=== PATIENT | male | born 1950 | race African-American/Black ===

== ENCOUNTER 2020-03-15 18:14 | Observation (INO) | payer OTHER ==
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
--- NOTE | 2020-03-15 18:56 | ER ---
Nurse's Notes [facility] Name: Robert Nina Jr Age: 69 yrs Sex: Male : 1950 Arrival Date: 03/15/2020 Time: 18:16 Bed 6 Private MD: Diagnosis: End stage renal disease-on hd;Obesity, unspecified;Dyspnea-volume overload;Anemia, unspecified;Unspecified combined systolic (congestive) and diastolic (congestive) heart failure;Type 1 diabetes mellitus;Essential (primary) hypertension;Hypoglycemia, unspecified Presentation: 03/15 18:16 Chief complaint: EMS states: PT [facility] AND IS DUE FOR DIALYSIS TODAY ls4 AND NOTHING WAS SET UP YET. Coronavirus screen: Client denies travel out of the [place] in the last 14 days. At this time, the client does not indicate any symptoms associated with coronavirus-19. Ebola Screen: No symptoms or risks identified at this time. Initial Sepsis Screen: Does the patient meet any 2 criteria? No. Patient's initial sepsis screen is negative. Does the patient have a suspected source of infection? No. Patient's initial sepsis screen is negative. Risk Assessment: Do you want to hurt yourself or someone else? Patient reports no desire to harm self or others. Onset of symptoms is unknown. 18:16 Method Of Arrival: EMS: [facility] ls4 18:16 Acuity: KEVEN 3 ls4 Triage Assessment: 18:26 General: Appears uncomfortable, obese, unkempt, Behavior is cooperative, quiet. Pain: ls4 Denies pain. Neuro: Level of Consciousness is awake, alert, obeys commands, Oriented to person, place, time, situation. Respiratory: Airway is patent Respiratory effort is even, unlabored, Respiratory pattern is regular. GI: No deficits noted. No signs and/or symptoms were reported involving the gastrointestinal system. Historical: - Allergies: 18:26 No Known Allergies; ls4 - PMHx: 18:26 CVA; ESRD; GERD; Diabetes - IDDM; RIGHT HEMIPLEGIA; ls4 - Immunization history:: Adult Immunizations up to date. - Social history:: Smoking status: unknown The patient lives in a correction. Screenin:20 Abuse screen: Denies threats or abuse. Denies injuries from another. Nutritional ls4 screening: No deficits noted. Tuberculosis screening: No symptoms or risk factors identified. Fall Risk. Assessment: 19:17 General: see triage assessment. ls4 20:00 Reassessment: Patient and/or family updated on plan of care and expected duration. Pain mt2 level reassessed. Patient is alert, oriented x 3, equal unlabored respirations, skin warm/dry/pink. Patient denies pain at this time. General: Appears comfortable, Behavior is cooperative. Pain: Denies pain. 21:07 Reassessment: Patient and/or family updated on plan of care and expected duration. Pain mt2 level reassessed. Patient is alert, oriented x 3, equal unlabored respirations, skin warm/dry/pink. Patient denies pain at this time. General: Appears comfortable, Behavior is cooperative. Pain: Denies pain. Vital Signs: 18:16 BP 157 / 104; Pulse 104; Resp 20; Temp 97.9(O); Pulse Ox 98% on R/A; Weight 108.86 kg; ls4 Height 5 ft. 7 in. (170.18 cm); Pain 3/10; 20:00 BP 179 / 100; Pulse 69; Resp 16; Pulse Ox 93% ; Pain 0/10; mt2 21:07 BP 158 / 86; Pulse 96; Resp 96; Pulse Ox 98% ; Pain 0/10; mt2 18:16 Body Mass Index 37.59 (108.86 kg, 170.18 cm) ls4 ED Course: 18:16 Patient arrived in ED. ls4 18:21 Triage completed. ls4 18:31 Stanley Jenkins MD is Attending Physician. darcie 18:48 Arm band placed on right wrist. ls4 18:55 Vikas Tran MD is Hospitalizing Provider. darcie 19:15 Inserted saline lock: 18 gauge in left EJ, using aseptic technique. mt2 19:22 XRAY Chest (1 view) In Process Unspecified. EDMS 19:27 Jessica Manuel, MICHAEL is Primary Nurse. ls4 21:06 Patient has correct armband on for positive identification. Placed in gown. Bed in low mt2 position. Call light in reach. Side rails up X 1. 21:08 No provider procedures requiring assistance completed. Patient admitted, IV remains in mt2 place. Administered Medications: Discontinued: NS 0.9% 1000 ml IV at 30 ml/hr continuous 19:28 Drug: NS 0.9% 1000 ml Route: IV; Rate: 30 ml/hr; Site: right antecubital; ls4 21:22 Follow up: IV Status: Completed infusion mt2 20:28 Drug: Lasix 100 mg Route: IVP; Site: left jugular; mt2 21:04 Follow up: Response: No adverse reaction rv 21:21 Follow up: Response: No adverse reaction; Blood pressure is lowered mt2 20:28 Drug: D50W 25 ml Route: IVP; Site: left jugular; mt2 21:20 Follow up: Response: No adverse reaction; Other; BGL INCREASED TO 88 mt2 Outcome: 18:56 Decision to Hospitalize by Provider. darcie 21:20 Admitted to Med/surg accompanied by tech, room 202, Report called to Vu mt2 21:20 Condition: stable 21:20 Instructed on the need for admit. 21:31 Patient left the ED. mt2 Signatures: Dispatcher [employer] EDStanley Du MD MD cha Vicente, Ronaldo RN RN Jessica Martinez RN RN ls4 Yasmin Rodarte RN RN mt2
[2020-03-15 19:05] LABS: Absolute Lymphocytes (CBC) 1.1 K/uL (0.7-4.9); Basophils % 1.3 % (0-1.3); Hematocrit 29.4 % (39.6-49.0); Lymphocytes % 17.2 % (15.3-44.8); MPV 8.1 fL (7.6-11.3)
[2020-03-15 19:20] LABS: Protime INR 1.64
[2020-03-15] MEDS ORDERED: NA CHLORIDE 0.9% 500 ML ONE (19:32)
[2020-03-15 19:42] LABS: ALT/SGPT 13 U/L (12-78); AST/SGOT 10 U/L (15-37); Albumin 2.8 g/dL (3.4-5.0); Alkaline Phosphatase 129 U/L (45-117); BUN Blood Urea Nitrogen 64 mg/dL (7-18); Bicarbonate 30 mmol/L (21-32); Bilirubin Direct 0.2 mg/dL (0-0.2); Bilirubin Total 0.5 mg/dL (0.2-1.0); Glucose Level 69 mg/dL (74-106); Lipase 75 U/L (73-393); Magnesium 2.1 mg/dL (1.8-2.4); NT PRO-BNP 11054 pg/mL (<125); Potassium 4.7 mmol/L (3.5-5.1); Protein, Total 6.7 g/dL (6.4-8.2); Sodium Level 137 mmol/L (136-145); Troponin (Emerg Dept Use Only) < 0.02 ng/mL (0.0-0.045)
--- NOTE | 2020-03-15 19:42 | RAD REPORT ---
EXAM DESCRIPTION: RAD - Chest Single View - 03/15/2020 7:22 pm CLINICAL HISTORY: COUGH COMPARISON: None TECHNIQUE: AP portable chest image was obtained 03/15/2020 7:22 pm . FINDINGS: Lung volumes are low. Patient is significantly rotated. . Large body habitus also limits t he examination. Central vasculature is prominent. Interstitial markings are prominent. Mild cardiomeg chris is present, accentuated by the above detailed factors. Right-sided vascular access stents and gra fts present. Several surgical clips seen in the right upper chest. Small pleural effusions are seen. No pneumothorax. No acute bony abnormality seen. No acute aortic findings suspected. IMPRESSION: CHF/volume overload pattern moderate in degree
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
[2020-03-15] MEDS ORDERED: D50W 25 GM/50 ML SYRINGE/VIAL IV ONE (20:30)
[2020-03-15] MEDS ORDERED: FUROSEMIDE 100 MG/10 ML VIAL IV ONE (20:30)
[2020-03-15] MEDS ORDERED: NA CHLORIDE 0.9% 50 ML IV ONE (20:31)
[2020-03-15] MEDS: INSULIN -REGULAR HUMAN 50 UNIT/0.5 ML ML SQ SCH (21:00)
[2020-03-15] MEDS ORDERED: MANNITOL 25% 12.5 GM/50 ML VIAL IV PRN (21:32)
[2020-03-15] MEDS ORDERED: NA CHLORIDE 0.9% 1,000 ML IV PRN (21:32)
[2020-03-15] MEDS ORDERED: ALBUMIN HUMAN 25% 50 ML IV SCH (22:00)
[2020-03-15] MEDS ORDERED: HEPARIN 10,000 UNIT/10 ML VIAL IV PRN (22:07)
[2020-03-15] MEDS ORDERED: D50W 25 GM/50 ML SYRINGE/VIAL IV PRN (22:28)
[2020-03-15 23:53] VITALS: BMI 32.3
[2020-03-16] MEDS: HEPARIN 5000 UNIT/ML 1 ML VIAL SQ SCH ×2 (01:06→08:55)
[2020-03-16 05:45] LABS: Absolute Lymphocytes (CBC) 1.4 K/uL (0.7-4.9); Basophils % 1.4 % (0-1.3); Hematocrit 26.8 % (39.6-49.0); Lymphocytes % 26.9 % (15.3-44.8); MPV 7.9 fL (7.6-11.3); RBC Red Blood Cell Count 3.03 M/uL (4.33-5.43)
[2020-03-16 06:12] LABS: Magnesium 1.9 mg/dL (1.8-2.4)
[2020-03-16] MEDS: INSULIN -REGULAR HUMAN 50 UNIT/0.5 ML ML SQ SCH ×4 (07:30→21:00)
--- NOTE | 2020-03-16 07:33 | EKG ---
Test Date: 2020-03-15 Test Time: 19:22:44 Mill Washer: SEAN MEASUREMENT RESULTS: Intervals: Rate: 88 DC: QRSD: 100 QT: 368 QTc: 445 [place]: P: DC: QRS: -1 T: 73 INTERPRETIVE STATEMENTS: Atrial fibrillation Septal infarct, age undetermined Abnormal ECG No previous ECG available for comparison Electronically Signed On 03-16-20 07:32:28 CDT by Sudhakar Owusu
[2020-03-16] MEDS ORDERED: PNEUMOCOCCAL VACCINE 0.5 ML IMVAC ONE (08:00)
[2020-03-16] MEDS: CALCITROL 0.25 MCG CAP PO SCH (08:54)
[2020-03-16] MEDS: SEVELAMER CARBONATE 800 MG TABLET PO SCH ×3 (08:54→17:00)
[2020-03-16] MEDS: MULTIVITAMINS,THERAPEUT 1 TAB PO SCH (08:55)
[2020-03-16] MEDS ORDERED: EPOETIN ALFA 10,000 UNIT/ML VIAL SQ SCH (09:00)
[2020-03-16] MEDS: D5W 1,000 ML IV SCH ×2 (09:08→17:00)
[2020-03-16] MEDS: HYDRALAZINE HCL 20 MG/ML VIAL IV PRN (12:17)
[2020-03-16] MEDS ORDERED: LACTULOSE 20 GM/30 ML UCUP PO PRN (12:49)
[2020-03-16] MEDS: GABAPENTIN 400 MG CAP PO SCH ×2 (14:00→20:19)
--- NOTE | 2020-03-16 16:22 | P.PN ---
Subjective Date of Service: 03/16/20 Subjective: No new changes, No C/O voiced, Improving Review of Systems 10-point ROS is otherwise unremarkable Physical Examination - Vital Signs Temperature: 98.1 F Blood Pressure: 186/77 Pulse: 64 Respirations: 20 Pulse Ox (%): 96 - Physical Exam General: Alert, In no apparent distress, Oriented x3 Respiratory: Clear to auscultation bilaterally, Normal air movement Cardiovascular: Regular rate/rhythm, Normal S1 S2, Systolic murmur Gastrointestinal: Normal bowel sounds, Soft and benign, Non-distended, No tenderness Musculoskeletal: No clubbing, No tenderness, Swelling Neurological: Sensation intact, Cranial nerves 3-12 intact - Studies Laboratory Data (last 24 hrs) 03/15/20 18:52: PT 19.2 H, INR 1.64 03/15/20 18:52: WBC 6.3, Hgb 9.7 L, Hct 29.4 L, Plt Count 178 03/15/20 18:52: Sodium 137, Potassium 4.7, BUN 64 H, Creatinine 6.63 H*, Glucose 69 L, Magnesium 2.1, Total Bilirubin 0.5, AST 10 L, ALT 13, Alkaline Phosphatase 129 H, Lipase 75 Medications List Reviewed: Yes Assessment & Plan - Problems (Diagnosis) (1) ESRD (end stage renal disease) Current Visit: Yes Status: Acute (2) DM2 (diabetes mellitus, type 2) Current Visit: Yes Status: Acute (3) HTN (hypertension) Current Visit: Yes Status: Acute - Plan Plan: 1. Hemodialysis per Nephrology 2. Okay to DC once discharge planning completed Discharge Plan: Home Plan to discharge in: Greater than 2 days - Advance Directives Does patient have a Living Will: No Does patient have a Durable POA for Healthcare: Yes - Code Status/Comfort Care Code Status Assessed: Yes Code Status: Full Code Critical Care: No Time Spent Managing PTS Care (In Minutes): 30
[2020-03-16] MEDS: CA ACETATE 667 MG CAP PO SCH (17:00)
[2020-03-16] MEDS: METOPROLOL TAR 25 MG TAB PO SCH (17:59)
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
[2020-03-16] MEDS: PANTOPRAZOLE 40MG TABLET PO SCH (20:18)
[2020-03-16] MEDS: LOSARTAN POTASSIUM 50 MG TABLET PO SCH (20:18)
[2020-03-16] MEDS: AMLODIPINE 5 MG TAB PO SCH (20:19)
[2020-03-16] MEDS: DOCUSATE NA 100 MG CAP PO SCH (20:20)
[2020-03-16] MEDS ORDERED: HOME MED 1 EA UNK (Pravastatin Sodium [Pravastatin Sodium] 10 MG) PO SCH (21:00)
[2020-03-16] MEDS ORDERED: ATORVASTATIN 10 MG TAB PO SCH (21:00)
[2020-03-16] MEDS ORDERED: AMLODIPINE 5 MG TAB PO SCH (21:00)
[2020-03-17] MEDS: D5W 1,000 ML IV SCH ×3 (01:00→08:38)
[2020-03-17] MEDS: METOPROLOL TAR 25 MG TAB PO SCH (06:09)
[2020-03-17] MEDS ORDERED: LEVOTHYROXINE SOD 0.075 MG TAB PO SCH (06:30)
[2020-03-17] MEDS: INSULIN -REGULAR HUMAN 50 UNIT/0.5 ML ML SQ SCH ×2 (07:30→11:30)
[2020-03-17] MEDS: LOSARTAN POTASSIUM 50 MG TABLET PO SCH (08:31)
[2020-03-17] MEDS: CALCITROL 0.25 MCG CAP PO SCH (08:32)
[2020-03-17] MEDS: GABAPENTIN 400 MG CAP PO SCH ×2 (08:33→13:33)
[2020-03-17] MEDS: DOCUSATE NA 100 MG CAP PO SCH (08:33)
[2020-03-17] MEDS: PANTOPRAZOLE 40MG TABLET PO SCH (08:33)
[2020-03-17] MEDS: AMLODIPINE 5 MG TAB PO SCH (08:33)
[2020-03-17] MEDS: CA ACETATE 667 MG CAP PO SCH ×2 (08:34→10:59)
[2020-03-17] MEDS: SEVELAMER CARBONATE 800 MG TABLET PO SCH ×2 (08:37→10:59)
[2020-03-17] MEDS: MULTIVITAMINS,THERAPEUT 1 TAB PO SCH (08:37)
[2020-03-17] MEDS ORDERED: VITAMIN D 5,000 UNIT CAP PO SCH (09:00)
[2020-03-17] MEDS ORDERED: ASPIRIN 325 MG TAB PO SCH (09:00)
[2020-03-17] MEDS ORDERED: RIVAROXABAN 15 MG TABLET PO SCH (09:00)
[2020-03-17] MEDS ORDERED: carvediloL 12.5 MG TAB PO SCH (10:00)
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
[2020-03-17 12:17] VITALS: BP 186/77; TEMP 98.1
[2020-03-17 13:02] VITALS: O2SAT 97
[2020-03-17] MEDS: HYDRALAZINE HCL 20 MG/ML VIAL IV PRN (13:03)
[2020-03-17] MEDS ORDERED: ONDANSETRON 4 MG/2 ML VIAL IV ONE (15:00)
[2020-03-17] MEDS ORDERED: DOXAZOSIN 2 MG TAB PO SCH (21:00)
[2020-03-19 21:55] LABS: HBsAG Nonreactive (Nonreactive)
== END 2020-03-17 15:44 | disposition home or self-care (01) ==
LOC: ER 18:14 → ERHOLD 19:48 → 2ND 21:05
PROVIDERS: ADMIT Hospitalist; ATTEND Hospitalist
DX: I13.2 Hypertensive heart and chronic kidney disease with heart failure and with stage 5 chronic kidney disease, or end stage renal disease (principal); N18.6 End stage renal disease; E10.22 Type 1 diabetes mellitus with diabetic chronic kidney disease; E10.649 Type 1 diabetes mellitus with hypoglycemia without coma; D63.1 Anemia in chronic kidney disease; E46 Unspecified protein-calorie malnutrition; N25.81 Secondary hyperparathyroidism of renal origin; N25.0 Renal osteodystrophy; I50.33 Acute on chronic diastolic (congestive) heart failure; Z99.2 Dependence on renal dialysis; E66.01 Morbid (severe) obesity due to excess calories; Z68.37 Body mass index [BMI] 37.0-37.9, adult; Z20.828 Contact with and (suspected) exposure to other viral communicable diseases; I48.91 Unspecified atrial fibrillation; R94.31 Abnormal electrocardiogram [ECG] [EKG]; I69.351 Hemiplegia and hemiparesis following cerebral infarction affecting right dominant side; K21.9 Gastro-esophageal reflux disease without esophagitis; Z79.82 Long term (current) use of aspirin; Z79.01 Long term (current) use of anticoagulants; Z79.4 Long term (current) use of insulin; Z79.899 Other long term (current) drug therapy
CPT/HCPCS: 36415; 71045; 80048; 80076; 82947; 83690; 83735; 83880; 84484; 85025; 85610; 86317; 86704; 86705; 87340; 90935; 93005; 96361; 96374; 96375; 99285; G0378; J0360; J1644; J2150; J2405; J7040; P9047; Q5105; U0002

== ENCOUNTER 2020-03-18 20:57 | Inpatient (IN) | payer OTHER ==
--- OUTSIDE RECORDS SUMMARY | 2020-03-18 21:01 | XMS REPORT | Clinical Summary ---
:1950 Author Organization [facility] Address [address] [place] [id number] Care Team Providers Name Role Phone Asked, No Pcp Primary Care Provider Unavailable Allergies Active Allergy Reactions Severity Noted Date Comments No Known Drug Allergies 05/02/2016 Medications Medication Sig Dispensed Refills Start Date End Date Status warfarin (COUMADIN) 5 Take 1 tablet 30 tablet 11 01/16/2016 Active MG tablet (5mg) by mouth daily for 30 days. Active Problems Problem Noted Date Cerebrovascular accident (CVA) 05/02/2016 Anemia, chronic disease 01/16/2016 Atrial fibrillation 01/16/2016 Essential hypertension 01/16/2016 Diabetes mellitus 01/16/2016 Chronic arterial ischemic stroke 01/16/2016 Clotted renal dialysis AV graft 01/10/2016 End-stage renal disease 10/22/2011 Hemiplegia 10/22/2011 Family History Medical History Relation Name Comments Diabetes Father Hypertension Mother Relation Name Status Comments Father Mother Social History Tobacco Use Types Packs/Day Years Used Date Current Every Day Smoker Cigarettes Comments: quit 20 years ku, 30 pack yea r history Alcohol Use Drinks/Week oz/Week Comments No Sex Assigned at Date Recorded Not on file Job Start Date Occupation Industry Not on file Not on file Not on file Travel History Travel Start Travel End No recent travel history available. Last Filed Vital Signs Not on file Plan of Treatment Health Maintenance Due Date Last Done Comments DIABETIC RETINAL EYE EXAM 1950 DIABETIC FOOT EXAM 1962 URINE MICROALBUMIN 1962 COLONOSCOPY SCREENING 2002 SHINGLES VACCINES (#1) 2002 65+ PNEUMOCOCCAL VACCINE (1 of 2 - PCV13) 2017 INFLUENZA VACCINE 04/21/2020 Results Not on fileafter 03/18/2019 Insurance Payer Benefit Plan / Subscriber ID Effective Dates Phone Addre ss Type Group MEDICAID MEDICAID xxxxxxxxx 2011-Present Med icaid MEDICARE MEDICARE PART A xxxxxxxxxx 1998-Present [place], [place] Medicare AND B (Home) [place] [address] Advance Directives For more information, please contact: [phone] Type Date Recorded Patient Advertising Consultant Explanati on Advance Directives, Living Will and Medical Power of 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
--- OUTSIDE RECORDS SUMMARY | 2020-03-18 21:04 | XMS REPORT | Continuity of Care Document ---
:1950 Author Organization [facility] t Address [address] [place] [address] Care Team Providers Name Role Phone Asked, No Pcp Primary Care Physician Unavailable Problems Condition Condition Condition Status Onset Resolution Last Treating Co mments Source Name Details Category Date Date Treatment Clinician Date Abdominal Abdominal Problem Active Dariana astrid pain Pain 7 st 00:00: [place] 00 [place] nterolo gy Assoc[facility] avtar Cerebrovas Cerebrovas Disease Active 2015-07 H kriss cular cular 012 [facility] accident accident 00:00: st (CVA) (CVA) 00 Anemia, Anemia, Disease Active [place] chronic chronic 01-15 [facility] disease disease 00:00: st 00 Atrial Atrial Disease Active [place] fibrillati fibrillati 01-15 Me thodi on on 00:00: st Essential Essential Disease Active Yen ston hypertensi hypertensi 01-15 Me thodi on on 00:00: st 00 Diabetes Diabetes Disease Active [place] mellitus mellitus 01-15 Method i 00:00: st Chronic Chronic 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 Family History Family Member Diagnosis Comments Start Date Stop Date Source Natural father Diabetes [facility] Natural mother Hypertension [place] [facility] Social History Social Habit Start Date Stop Date Quantity Comments Source History of Cigarette Smoker [place] [facility] tobacco use Sex Assigned At [place] [facility] Alcohol intake 2016-05-02 2016-05-02 Current [facility]odist 00:00:00 00:00:00 non-drinker of alcohol (finding) Tobacco Comment 2016-01-10 2016-01-10 quit 20 years [place] [facility] 00:00:00 00:00:00 ku, 30 pack year history Smoking Status Start Date Stop Date Source Never Smoker [facility] Current every day 2016-05-02 00:00:00 [facility] smoker Medications Ordered Filled Start Stop Current Ordering Indication Dosage Frequency Signature Comments Components Source Medication Medication Date Date Medication? Clinician (SIG) Name Name promethazin promethazin No 12.5mg promethazi [place] e 12.5 mg e 12.5 mg 02-[address] tablet Take tablet Take 00:00: tablet [place] 12.5 mg by 12.5 mg by 00 Take 12.5 [place] oral route. oral route. mg by oral nterolo route. gy Associa avtar Tylenol-Cod Tylenol-Cod No 1 Q4H Tylenol-Co [place] eine #4 300 eine #4 300 02-25 deine #4 st mg-60 mg mg-60 mg 00:00: 300 mg-60 [place] tablet Take tablet Take 00 mg tablet [place] 1 tablet 1 tablet Take 1 ntero lo every 4 every 4 tablet gy hours by hours by every 4 Asso antoine oral route. oral route. hours by avtar oral route. aspirin 81 aspirin 81 No 81mg aspirin 81 [place] mg chewable mg chewable 7-03 mg s t tablet Chew tablet Chew 00:00: chewable [place] 81 mg by 81 mg by 00 tablet [place] oral route. oral route. Chew 81 mg nterolo by oral gy route. Associa avtar levothyroxi levothyroxi No levothyrox [place] ne 150 mcg ne 150 mcg 7-[address] tablet one tablet one 00:00: mcg tablet [place] tablet by tablet by 00 one tablet [place] mouth qd mouth qd by mouth nte therese qd gy Associa avtar metoprolol metoprolol No 25mg metoprolol [facility] tartrate 25 tartrate 25 7-[address] mg tablet mg tablet 00:00: 25 mg [place] Take 25 mg Take 25 mg 00 tablet G astroe by oral by oral Take 25 mg nte therese route. route. by oral gy route. Associa avtar pantoprazol pantoprazol 2016- No 40mg BID pantoprazo [place] e 40 mg e 40 mg 1-[address] tablet,jazz tablet,jazz 00:00: tablet,del [place] yed release yed release 00 ayed G astroe Take 40 mg Take 40 mg release nterolo twice a day twice a day Take 40 mg gy by oral by oral twice a Associ a route for route for day by avtar 60 days. 60 days. oral route for 60 days. warfarin Yes Take 1 [place] (COUMADIN) 6-27 tablet Methodi 5 MG tablet 00:00: (5mg) by st 00 mouth daily for 30 days. calcium calcium No 1capsul Q1D calcium Dariana astrid acetate 667 acetate 667 e(s) acetate st mg capsule mg capsule 667 mg [place] Take 1 Take 1 capsule [place] capsule capsule Take 1 nterolo every day every day capsule gy by oral by oral every day Asso antoine route. route. by oral avtar route. Colace 100 Colace 100 No 1capsul Q1D Colace 100 [place] mg capsule mg capsule e(s) mg capsule st Take 1 Take 1 Take 1 [place] capsule capsule capsule Gastro e every day every day every day nterolo by oral by oral by oral gy route. route. route. Associa avtar hydralazine hydralazine No 1 BID hydralazin [place] 50 mg 50 mg e [address] tablet Take tablet Take tablet [place] 1 tablet 1 tablet Take 1 [place] o[place] twice a day twice a day tablet nterolo by oral by oral twice a gy route. route. day by Associa oral avtar route. lactulose lactulose No 15mL Q1D lactulose [place] 10 gram/15 10 gram/15 10 gram/15 st mL oral mL oral mL oral [place] solution solution solution Gas troe Take 15 mL Take 15 mL Take 15 mL nterolo every day every day every day gy by oral by oral by oral Associ a route. route. route. avtar pravastatin pravastatin No 10mg pravastati [place] 10 mg 10 mg n [address] tablet 10 tablet 10 tablet 10 [place] mg by oral mg by oral mg by oral [place] route. route. route. nterolo gy Associa avtar ranitidine ranitidine No 1 BID ranitidine [place] 150 mg [address] tablet Take tablet Take tablet [place] 1 tablet 1 tablet Take 1 [place] o[place] twice a day twice a day tablet nterolo by oral by oral twice a gy route. route. day by Associa oral avtar route. Tums 200 mg Tums 200 mg No 4 Q1D Tums 200 [place] calcium calcium mg calcium st (500 mg) (500 mg) (500 mg) Jude as chewable chewable chewable Gas tro[place] tablet Take tablet Take tablet nterolo 4 tablets 4 tablets Take 4 gy every day every day tablets As socia by oral by oral every day avtar route. route. by oral route. Vitamin D3 Vitamin D3 No Vitamin D3 [place] one tablet one tablet one tablet st by mouth qd by mouth qd by mouth [place] qd [place] nterolo gy Associa avtar Vital Signs Vital Name Observation Time Observation Value Comments Source BP Diastolic 2019-02-25 78 mm[Hg] [facility] 00:00:00 [facility] Height 2019-02-25 67 [in_i] [facility] 00:00:00 [facility] BMI (Body Mass 2019-02-25 25.1 kg/m2 [facility] as Index) 00:00:00 [facility] BP Systolic 2019-02-25 122 mm[Hg] [facility] 00:00:00 [facility] Body Weight 2019-02-25 160 [lb_av] [facility] 00:00:00 [facility] BP Diastolic 2019-01-21 64 mm[Hg] [facility] 00:00:00 [facility] Height 2019-01-21 67 [in_i] [facility] 00:00:00 [facility] BP Systolic 2019-01-21 122 mm[Hg] [facility] 00:00:00 [facility] Procedures This patient has no known procedures. Plan of Care Planned Activity Planned Date Details Comments Source Future Scheduled 2020-04-21 INFLUENZA VACCINE Raisa ballard [facility] Test 00:00:00 [code = INFLUENZA VACCINE] Future Scheduled 2017 65+ PNEUMOCOCCAL [place] [facility] Test 00:00:00 VACCINE (1 of 2 - PCV13) [code = 65+ PNEUMOCOCCAL VACCINE (1 of 2 - PCV13)] Future Scheduled 2002 COLONOSCOPY SCREENING Ho monika Y[facility] Test 00:00:00 [code = COLONOSCOPY SCREENING] Future Scheduled 2002 SHINGLES VACCINES (#1) H [place] [facility] Test 00:00:00 [code = SHINGLES VACCINES (#1)] Future Scheduled 1962 DIABETIC FOOT EXAM [place] [facility] Test 00:00:00 [code = DIABETIC FOOT EXAM] Future Scheduled 1962 URINE MICROALBUMIN [place] [facility] Test 00:00:00 [code = URINE MICROALBUMIN] Future Scheduled 1952 DIABETIC RETINAL EYE [place] st[place] [facility] Test 00:00:00 EXAM [code = DIABETIC RETINAL EYE EXAM] Encounters Start End Encounter Admission Attending Care Care Encounter Source Date/Time Date/Time Type Type Clinicians Facility Department ID 2019-02-25 2019-02-25 Judith THOMAS [place] - [id number] S [place] 00:00:00 00:00:00 [facility]: [address], OFFICE [address], [facility] [id number] , Ph. 2019-01-21 2019-01-21 Judith THOMAS [place] - [id number] S out[place] 00:00:00 00:00:00 [facility]: [address], OFFICE [address], Assoc [facility] [id number] , Ph. Results Test Description Test Time Test Comments Results Result Sour e Comments PATHOLOGY REPORT 2020-02-11 TISSUE CONSULTATION 13:55:00 [facility] PATHOLOG[facility].O[address], [place] [address] PIPE ZAMORA M.D.AMANDA GONZALES M.D.CHARLES E. BURNS, M.D. Patient: JOSE NINA 1950 69 MRoom:Hosp#: [id number] Ordering Physician: FREDI JANG Rec.: 02/10/2020Date of Proc.: 02/10/2020Lab No.: [id number] Clinica l History:AnemiaFINAL ANATOMIC DIAGNOSIS:A. STOMACH, RANDOM BIOPSIES:MILD CHRONIC GASTRITIS;NEGATIVE FOR GOBLET CELL METAPLASIA;NEGATIVE FOR HELICOBACTER PYLORI ORGANISMSB. CECUM, POLYPECTOMY: TUBULAR ADENOMAMICROSCOPIC EXAMINATION:A. The random gastric biopsies are involved by a mild chronicgastritis. Eosinophils are not increased. No acute inflammation ispresent. No goblet cell metaplasia or Helicobacter pylori organismsare identified, confirmed by Alcian blue/PAS and Peter stains.There is no evidence of malignancy.B. The cecal specimen represents a tubular adenoma. There is noevidence of high-grade dysplasia or malignancy. Due to theorientation of the polyp in these sections, I am unable to evaluatethe polypectomy margins.GROSS APPEARANCE:A. The specimen labeled "random gastric biopsy." Received informalin are two fragments of peralta tissues 0.3 cm each. TE incassette A.B. The specimen labeled "cecum polyp biopsy." Received in formalinis a fragment of peralta tissue 0.3 cm. TE in cassette B.PATHOLOGIST: Abbe Schilling Electronically Signed: 02/11/2020 WHOLE BLOOD GLUCOSE 2020-02-10 15:45:00 Test Item Value Reference Range Interpretation Comme nts WHOLE BLOOD GLUCOSE (test 231 MG/DL 70-99 H Fasting glucose normal <100 MG/DL- code = POC GLU) [facility] recommendation* * WHOLE BLOOD [id number] 15:20:00 Test Item Value Reference Range Interpretation Comments WHOLE BLOOD GLUCOSE 40 MG/DL 70-99 Fastin g glucose (test code = POC GLU) normal <100 MG/DL- [facility] recommendation* * COVID ANTIBODY [id number] 13:19:00 Test Item Value Reference Range Interpretation Comments COVID-19 TOTAL AB NEGATIVE Reactive r esults could TEST (test code = occur afte r infection and [id number]) can be indicati ve of acute or recent infec tion. Non-reactive re sults do not preclude SARS-C oV-2 infection and s hould not be used as the janette e basis for patient managem ent decisions. Res ults must be combined with c linical observations, p atient history, and epidemiological information. Fa lse reactive results may occ ur due to cross-reactivit y from pre-existing an tibodies or other possible causes. WHOLE BLOOD [id number] 12:25:00 Test Item Value Reference Range Interpretation Comments WHOLE BLOOD GLUCOSE 72 MG/DL 70-99 Fastin g glucose (test code = POC GLU) normal <100 MG/DL- [facility] recommendation* * Blood [id number] 18:02:21No growth at 5 days.Blood [id number] 18:01:39No growth at [address] Abdomen and Pelvis w/o [id number] 16:13:16Patient: JOSE NINA Date/Time01/21/202015:35 CDTReason for ExamAbdominal painReportCT ABDOMEN AND CT PELVIS WITHOUT CONTRAST:HISTORY: Abdominal pain, dialysis patientCOMPARISON: CT of 09/09/2015Multiple transverse images were obtained through the upper abdomen and the pelvis. No intravenous contrast material was administered, as ordered. Oral contrast material was not administered, as ordered. Radiation reduction was achieved by using automatic exposure control, adjusting the MA according to the patient's size.A small right pleural effusion is present. There are small infiltrates noted in the lower lobes bilaterally. A sliding-type hiatal hernia is again seen.No focal abnormalities are seen in the liver. Surgical clips are seen in the gallbladder bed. The spleen has a normal appearance. The pancreas is unremarkable.No kidney stones aredemonstrated. Kidneys are small and contain several small cysts. No hydronephrosis is observed. A filter is seen in the infrarenal inferior vena cava. A vascular stent is seen in the right iliac vein.No bowel distention is demonstrated.The appendix has a normal CT appearance. There is a patulous appearance of the right abdominal wall. Some edema is noted in the subcutaneous soft tissues of the rightabdominal wall.No enlarged lymph nodes are seen in the retroperitoneum or the pelvis.Osteopenia is noted. There are Schmorl's nodes in the lumbar vertebral bodies at multiple levels. Compression fractures are seen at the T11 and T12 vertebral bodies, with some fragmentation of the vertebral bodies. There does not appear to be significant encroachment upon the central canal at that level.IMPRESSION:1.Bilateral lower lobe pulmonary infiltrates and small right pleural effusion.2. Hiatal hernia.3. Edema in the right lateral abdominal wall.4. Small kidneys compatible with the history of renal failure.5. Marked osteopenia with compression fractures and fragmentation of the T11 and T12 vertebral bodies6. Vena cava filter. Final Dictated by: MD Arce Ramon JulioDictated DT/TM: 01/21/20203:59 pmSigned by: MD Arce Ramon JulioSigned (Electronic Signature): 01/21/2020 4:13 pmPOC [id number] 15:14:34 Test Item Value Reference Range Interpretation Comments Glucose POC (test 98 mg/dL 74-106 POC Glucos e used on code = Glucose POC) critical ly ill patients is considered " off-label use" and has no t been cleared or appr denise by the FDA. Altern ative testing methods should be considered i f the patient is crit ically ill. Prothrombin Time and [id number] 14:06:36 Test Item Value Reference Range Interpretation Comments Prothrombin Time (test code = 11.9 seconds 9.0-12.0 Prothrombin Time) INR (test code = INR) 1.2 ratio 0.9-1.2 Lactic Acid, Plasma (Venous)2020-01-21 14:02:08 Test Item Value Reference Range Interpretation Comments Lactic Acid, Plasma (Venous) (test 2.0 mmol/L 0.4-2.0 code = Lactic Acid, Plasma (Venous)) Complete Blood Count with [id number] 13:53:42 Test Item Value Reference Range Interpretation Comments WBC (test code = WBC) 4.3 x10 4.8-10.8 L RBC (test code = RBC) 3.67 x10 4.60-6.20 L Hgb (test code = Hgb) 11.2 g/dL 14.0-18.0 L Hct (test code = Hct) 34.4 % 38.0-52.0 L MCV (test code = MCV) 93.7 fL 80.0-95.0 MCHC (test code = MCHC) 32.6 g/dL 31.0-36.0 RDW (test code = RDW) 15.2 % 11.5-14.5 N MCH (test code = MCH) 30.5 pg 26.0-32.0 Platelets (test code = 110 x10 140-440 L Platelets) MPV (test code = MPV) 10.1 fL 7.5-11.2 Slide Review (test code Auto N Resu lt created by = Slide Review) GL_SET_SLIDE _REVIEW_A UTO Automated [id number] 13:53:42 Test Item Value Reference Range Interpretation Comments Neutro Auto (test code = Neutro Auto) 85.5 % N Lymph Auto (test code = Lymph Auto) 4.9 % N Winn Auto (test code = Winn Auto) 8.9 % N Basophil Auto (test code = Basophil 0.2 % N Auto) Neutro Absolute (test code = Neutro 3.7 x10 2.7-7.3 Absolute) Lymph Absolute (test code = Lymph 0.2 x10 0.8-3.5 L Absolute) Winn Absolute (test code = Winn 0.4 x10 0.3-0.9 Absolute) Baso Absolute (test code = Baso 0.0 x10 0.0-0.1 Absolute) IG [id number] 13:53:42 Test Item Value Reference Range Interpretation Comments IG (test code = IG) 0 % 0-5 IG Abs (test code = IG Abs) 0 x10 N Comprehensive Metabolic [id number] 13:49:12 Test Item Value Reference Range Interpretation Comments Sodium Level (test code = 139 mmol/L 136-145 Sodium Level) Potassium Level (test code = 3.7 mmol/L 3.5-5.1 Potassium Level) Chloride Level (test code = 100 mmol/L 98-107 Chloride Level) CO2 (test code = CO2) 29 mmol/L 21-32 Anion Gap (test code = Anion 10 mmol/L 7-16 Gap) BUN (test code = BUN) 24 mg/dL 7-18 H Creatinine Level (test code = 3.4 mg/dL 0.7-1.3 H Creatinine Level) Glucose Level (test code = 97 mg/dL 74-106 Glucose Level) Calcium Level (test code = 8.6 mg/dL 8.5-10.1 Calcium Level) Alk Phos (test code = Alk 433 IntlUnit/L 45-122 H Phos) Bilirubin Total (test code = 3.0 mg/dL 0.2-1.0 H Bilirubin Total) Albumin Level (test code = 3.0 g/dL 3.4-5.0 L Albumin Level) Protein Total (test code = 6.3 g/dL 6.4-8.2 L Protein Total) ALT (test code = ALT) 900 IntlUnit/L 12-78 H AST (test code = AST) 1322 IntlUnit/L 10-34 H Pro B Natriuretic [id number] 13:49:12 Test Item Value Reference Range Interpretation Comments NT-proBNP (test 7976 pg/mL 0-125 H < 300 pg/ml - heart code = NT-proBNP) failure un likelyAge less than 50 years, > 450 pg/ml - heart f ailure lilkelyAge 50 - 75 years, > 900 pg/ml - h eart failure likelyA ge greater than 75 years, > 1800 pg/ml - heart f ailure likely Comprehensive Metabolic [id number] 13:49:12 Test Item Value Reference Range Interpretation Comments Sodium Level (test code = 139 mmol/L 136-145 Sodium Level) Potassium Level (test code 3.7 mmol/L 3.5-5.1 = Potassium Level) Chloride Level (test code = 100 mmol/L 98-107 Chloride Level) CO2 (test code = CO2) 29 mmol/L 21-32 Anion Gap (test code = 10 mmol/L 7-16 Anion Gap) BUN (test code = BUN) 24 mg/dL 7-18 H Creatinine Level (test code 3.4 mg/dL 0.7-1.3 H = Creatinine Level) Glucose Level (test code = 97 mg/dL 74-106 Glucose Level) Calcium Level (test code = 8.6 mg/dL 8.5-10.1 Calcium Level) Alk Phos (test code = Alk 433 IntlUnit/L 45-122 H Phos) Bilirubin Total (test code 3.0 mg/dL 0.2-1.0 H = Bilirubin Total) Albumin Level (test code = 3.0 g/dL 3.4-5.0 L Albumin Level) Protein Total (test code = 6.3 g/dL 6.4-8.2 L Protein Total) ALT (test code = ALT) 900 IntlUnit/L 12-78 H AST (test code = AST) 1322 IntlUnit/L 10-34 H eGFR AA (test code = eGFR 22 mL/min/1.73 m2 N AA) Comprehensive Metabolic [id number] 13:49:12 Test Item Value Reference Range Interpretation Comments Sodium Level (test code = 139 mmol/L 136-145 Sodium Level) Potassium Level (test code 3.7 mmol/L 3.5-5.1 = Potassium Level) Chloride Level (test code = 100 mmol/L 98-107 Chloride Level) CO2 (test code = CO2) 29 mmol/L 21-32 Anion Gap (test code = 10 mmol/L 7-16 Anion Gap) BUN (test code = BUN) 24 mg/dL 7-18 H Creatinine Level (test code 3.4 mg/dL 0.7-1.3 H = Creatinine Level) Glucose Level (test code = 97 mg/dL 74-106 Glucose Level) Calcium Level (test code = 8.6 mg/dL 8.5-10.1 Calcium Level) Alk Phos (test code = Alk 433 IntlUnit/L 45-122 H Phos) Bilirubin Total (test code 3.0 mg/dL 0.2-1.0 H = Bilirubin Total) Albumin Level (test code = 3.0 g/dL 3.4-5.0 L Albumin Level) Protein Total (test code = 6.3 g/dL 6.4-8.2 L Protein Total) ALT (test code = ALT) 900 IntlUnit/L 12-78 H AST (test code = AST) 1322 IntlUnit/L 10-34 H eGFR AA (test code = eGFR 22 mL/min/1.73 m2 N AA) eGFR Non-AA (test code = 18 mL/min/1.73 m2 N eGFR Non-AA) Troponin [id number] 13:43:18 Test Item Value Reference Range Interpretation Comments Troponin-I (test code = 0.017 ng/mL 0.010-0.040 Troponin-I) XR Chest 1 View [id number] 13:26:28Patient: JOSE NINA Date/Time01/21/202013:09 CDTReason for ExamCoughReportX-ray CHEST 1 VIEW FRONTAL:HISTORY: Cough, feverCOMPARISON: 08/23/2019The cardiac silhouette is enlarged, with left ventricular prominence. A dialysis catheter is againnoted. A vascular stent is seen in the right subclavian region.Pulmonary vascular engorgement and interstitial infiltrates are noted.The bony architecture appears intact, where adequately seen.IMPRESSIO N:Pulmonary vascular congestion and pulmonary interstitial infiltrates. Pulmonary edema and pneumonia are considerations. Final Dictated by: MD Arce Ramon JulioDictated DT/TM: 01/21/2020 1:25 pmSigned by: MD Arce Ramon JulioSigned (Electronic Signature): 01/21/2020 1:26 pmUS ARTERIAL EXT. [id number] 16:01:[address] [id number] IMAGING REPORTPatient Name: JOSE NINADate of Service: [id number]: 69 Sex: M Order #: [id number] [facility] 1950 X-Ray Number: [id number] Record Number: [id number] Hospital Number: [id number] Physician: Yana LARSON Physician: CALVIN THOMAS -Right lower extremity venous Doppler ultrasound 10/11/2019History: Right leg pain and swelling x1 week. Prior DVTComparison: None Grayscale, color-flow, and duplex images with spectral analysis wereobtained.Flow is noted in the compressible left common femoral vein. Flow is alsoseen in the left superficial femoral, popliteal and tibial veins. Theproximal superficial femoral vein is only partially compressible. Otherportions of the superficial femoral and popliteal veins are completelycompressible.No definitive intraluminal thrombus.IMPRESSION:Incomplete compressibility of the proximal superficial femoral vein mostlikely due to sequelae of chronic DVT. The vessel is patent.No other definite acute DVT.Right lower extremity arterial Doppler ultrasound 10/11/2019History: As aboveComparison: NoneGrayscale, color-flow and duplex imaging with spectral analysis wasperformed.The right common femoral artery shows triphasic waveform and peak velocityof 59 cm/s.The proximal SFA has a triphasic waveform with peak velocity of 104 cm/s.Biphasic waveform is noted in the mid to distal SFA with velocities [id number] and 46 cm/s.Biphasic waveforms are also noted in popliteal and tibial arteries withpopliteal artery velocity of 57 cm/s. Tibial artery velocities rangebetween 31 and 119 cm/s where seen. 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 [id number] 16:01:[address] [id number] IMAGING REPORTPatient Name: Celsa NINA of Service: [id number]: 69 Sex: M Order #: [id number] [facility] 1950 X-Ray Number: [id number] Record Number: [id number] Hospital Number: [id number] Physician: Yana LARSON Physician: CALVIN THOMAS -Right lower extremity venous Doppler ultrasound 10/11/2019History: Right leg pain and swelling x1 week. Prior DVTComparison: None Grayscale, color-flow, and duplex images with spectral analysis wereobtained.Flow is noted in the compressible left common femoral vein. Flow is alsoseen in the left superficial femoral, popliteal and tibial veins. Theproximal superficial femoral vein is only partially compressible. Otherportions of the superficial femoral and popliteal veins are completelycompressible.No definitive intraluminal thrombus.IMPRESSION:Incomplete compressibility of the proximal superficial femoral vein mostlikely due to sequelae of chronic DVT. The vessel is patent.No other definite acute DVT.Right lower extremity arterial Doppler ultrasound 10/11/2019History: As aboveComparison: NoneGrayscale, color-flow and duplex imaging with spectral analysis wasperformed.The right common femoral artery shows triphasic waveform and peak velocityof 59 cm/s.The proximal SFA has a triphasic waveform with peak velocity of 104 cm/s.Biphasic waveform is noted in the mid to distal SFA with velocities diptscu02 and 46 cm/s.Biphasic waveforms are also noted in popliteal and tibial arteries withpopliteal artery velocity of 57 cm/s. Tibial artery velocities rangebetween 31 and 119 cm/s where seen. 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 with patent posteriortibial artery.Otherwise patent right lower extremity arteries as discussed.Electronically Signed By: Rao Jimenez M.D., 10/11/2019 3:58 PMLegally authenticated by DEB MCCONNELL 2019-10-11 15:58:36Blood [id number] 23:02:08No growth at 5 days.Basic Metabolic [id number] 07:37:13 Test Item Value Reference Range Interpretation Comments Sodium Level (test code = Sodium 137 mmol/L 136-145 Level) Potassium Level (test code = 4.1 mmol/L 3.5-5.1 Potassium Level) Chloride Level (test code = 100 mmol/L 98-107 Chloride Level) CO2 (test code = CO2) 30 mmol/L 21-32 Anion Gap (test code = Anion Gap) 7 mmol/L 7-16 BUN (test code = BUN) 25 mg/dL 7-18 H Creatinine Level (test code = 3.2 mg/dL 0.7-1.3 H Creatinine Level) Glucose Level (test code = Glucose 68 mg/dL 74-106 L Level) Calcium Level (test code = Calcium 7.6 mg/dL 8.5-10.1 L Level) Basic Metabolic [id number] 07:37:13 Test Item Value Reference Range Interpretation Comments Sodium Level (test code = 137 mmol/L 136-145 Sodium Level) Potassium Level (test code 4.1 mmol/L 3.5-5.1 = Potassium Level) Chloride Level (test code = 100 mmol/L 98-107 Chloride Level) CO2 (test code = CO2) 30 mmol/L 21-32 Anion Gap (test code = 7 mmol/L 7-16 Anion Gap) BUN (test code = BUN) 25 mg/dL 7-18 H Creatinine Level (test code 3.2 mg/dL 0.7-1.3 H = Creatinine Level) Glucose Level (test code = 68 mg/dL 74-106 L Glucose Level) Calcium Level (test code = 7.6 mg/dL 8.5-10.1 L Calcium Level) eGFR AA (test code = eGFR 24 mL/min/1.73 m2 N AA) Basic Metabolic [id number] 07:37:13 Test Item Value Reference Range Interpretation Comments Sodium Level (test code = 137 mmol/L 136-145 Sodium Level) Potassium Level (test code 4.1 mmol/L 3.5-5.1 = Potassium Level) Chloride Level (test code = 100 mmol/L 98-107 Chloride Level) CO2 (test code = CO2) 30 mmol/L 21-32 Anion Gap (test code = 7 mmol/L 7-16 Anion Gap) BUN (test code = BUN) 25 mg/dL 7-18 H Creatinine Level (test code 3.2 mg/dL 0.7-1.3 H = Creatinine Level) Glucose Level (test code = 68 mg/dL 74-106 L Glucose Level) Calcium Level (test code = 7.6 mg/dL 8.5-10.1 L Calcium Level) eGFR AA (test code = eGFR 24 mL/min/1.73 m2 N AA) eGFR Non-AA (test code = 19 mL/min/1.73 m2 N eGFR Non-AA) Complete Blood Count with [id number] 07:26:47 Test Item Value Reference Range Interpretation Comments WBC (test code = WBC) 3.6 x10 4.8-10.8 L RBC (test code = RBC) 3.25 x10 4.60-6.20 L Hgb (test code = Hgb) 10.2 g/dL 14.0-18.0 L MCV (test code = MCV) 93.4 fL 80.0-95.0 Hct (test code = Hct) 30.4 % 38.0-52.0 L MCHC (test code = MCHC) 33.5 g/dL 31.0-36.0 RDW (test code = RDW) 18.7 % 11.5-14.5 H MCH (test code = MCH) 31.3 pg 26.0-32.0 Platelets (test code = 112 x10 140-440 L Platelets) MPV (test code = MPV) 7.7 fL 7.5-11.2 Slide Review (test code Auto N Resu lt created by = Slide Review) GL_SET_SLIDE _REVIEW_A UTO Automated [id number] 07:26:47 Test Item Value Reference Range Interpretation Comments Neutro Auto (test code = Neutro Auto) 63.7 % N Lymph Auto (test code = Lymph Auto) 24.7 % N Winn Auto (test code = Winn Auto) 7.7 % N Eos, Auto (test code = Eos, Auto) 3.0 % N Basophil Auto (test code = Basophil 0.9 % N Auto) Neutro Absolute (test code = Neutro 2.3 x10 2.7-7.3 L Absolute) Lymph Absolute (test code = Lymph 0.9 x10 0.8-3.5 Absolute) Winn Absolute (test code = Winn 0.3 x10 0.3-0.9 Absolute) Eos Absolute (test code = Eos 0.1 x10 0.0-0.3 Absolute) Baso Absolute (test code = Baso 0.0 x10 0.0-0.1 Absolute) Basic Metabolic [id number] 10:48:07 Test Item Value Reference Range Interpretation Comments Sodium Level (test code = Sodium 135 mmol/L 136-145 L Level) Potassium Level (test code = 3.9 mmol/L 3.5-5.1 Potassium Level) Chloride Level (test code = 100 mmol/L 98-107 Chloride Level) CO2 (test code = CO2) 29 mmol/L 21-32 Anion Gap (test code = Anion Gap) 6 mmol/L 7-16 L BUN (test code = BUN) 36 mg/dL 7-18 H Creatinine Level (test code = 4.1 mg/dL 0.7-1.3 H Creatinine Level) Glucose Level (test code = Glucose 89 mg/dL 74-106 Level) Calcium Level (test code = Calcium 7.6 mg/dL 8.5-10.1 L Level) Basic Metabolic [id number] 10:48:07 Test Item Value Reference Range Interpretation Comments Sodium Level (test code = 135 mmol/L 136-145 L Sodium Level) Potassium Level (test code 3.9 mmol/L 3.5-5.1 = Potassium Level) Chloride Level (test code = 100 mmol/L 98-107 Chloride Level) CO2 (test code = CO2) 29 mmol/L 21-32 Anion Gap (test code = 6 mmol/L 7-16 L Anion Gap) BUN (test code = BUN) 36 mg/dL 7-18 H Creatinine Level (test code 4.1 mg/dL 0.7-1.3 H = Creatinine Level) Glucose Level (test code = 89 mg/dL 74-106 Glucose Level) Calcium Level (test code = 7.6 mg/dL 8.5-10.1 L Calcium Level) eGFR AA (test code = eGFR 18 mL/min/1.73 m2 N AA) Basic Metabolic [id number] 10:48:07 Test Item Value Reference Range Interpretation Comments Sodium Level (test code = 135 mmol/L 136-145 L Sodium Level) Potassium Level (test code 3.9 mmol/L 3.5-5.1 = Potassium Level) Chloride Level (test code = 100 mmol/L 98-107 Chloride Level) CO2 (test code = CO2) 29 mmol/L 21-32 Anion Gap (test code = 6 mmol/L 7-16 L Anion Gap) BUN (test code = BUN) 36 mg/dL 7-18 H Creatinine Level (test code 4.1 mg/dL 0.7-1.3 H = Creatinine Level) Glucose Level (test code = 89 mg/dL 74-106 Glucose Level) Calcium Level (test code = 7.6 mg/dL 8.5-10.1 L Calcium Level) eGFR AA (test code = eGFR 18 mL/min/1.73 m2 N AA) eGFR Non-AA (test code = 15 mL/min/1.73 m2 N eGFR Non-AA) Complete Blood Count with [id number] 10:34:02 Test Item Value Reference Range Interpretation Comments WBC (test code = WBC) 4.7 x10 4.8-10.8 L RBC (test code = RBC) 2.59 x10 4.60-6.20 L Hgb (test code = Hgb) 8.5 g/dL 14.0-18.0 L MCV (test code = MCV) 97.6 fL 80.0-95.0 H Hct (test code = Hct) 25.3 % 38.0-52.0 L MCHC (test code = MCHC) 33.4 g/dL 31.0-36.0 RDW (test code = RDW) 18.3 % 11.5-14.5 H MCH (test code = MCH) 32.6 pg 26.0-32.0 H Platelets (test code = 132 x10 140-440 L Platelets) MPV (test code = MPV) 7.8 fL 7.5-11.2 Slide Review (test code Auto N Resu lt created by = Slide Review) GL_SET_SLIDE _REVIEW_A UTO Automated [id number] 10:34:02 Test Item Value Reference Range Interpretation Comments Neutro Auto (test code = Neutro Auto) 77.3 % N Lymph Auto (test code = Lymph Auto) 13.9 % N Winn Auto (test code = Winn Auto) 6.0 % N Eos, Auto (test code = Eos, Auto) 2.0 % N Basophil Auto (test code = Basophil 0.8 % N Auto) Neutro Absolute (test code = Neutro 3.7 x10 2.7-7.3 Absolute) Lymph Absolute (test code = Lymph 0.7 x10 0.8-3.5 L Absolute) Winn Absolute (test code = Winn 0.3 x10 0.3-0.9 Absolute) Eos Absolute (test code = Eos 0.1 x10 0.0-0.3 Absolute) Baso Absolute (test code = Baso 0.0 x10 0.0-0.1 Absolute) Red Blood Cells [id number] 17:40:44 Test Item Value Reference Range Interpretation Comments # of Units (test code = # 2 N of Units) RBC Trn Reason (test code Hgb <7, symptomatic N = RBC Trn Reason) RBC Product Ready (test RBC Ready code = RBC Product Ready) [id number] 17:22:25 Test Item Value Reference Range Interpretation Comments Previous History (test code Yes Prev History = Previous History) BBID (test code = BBID) [id number] Methodology (test code = Ortho-Vision(OV) Methodology) Anti-A (test code = Anti-A) 0 Anti-B (test code = Anti-B) 4+ Anti-D (test code = Anti-D) 4+ DCon (test code = DCon) 0 A1 (test code = A1) 3+ B cells (test code = B 0 cells) ABORh (test code = ABORh) B POS 2C [id number] 17:22:25 Test Item Value Reference Range Interpretation Comments Methodology (test code = Ortho-Vision(OV) Methodology) SC1 (test code = SC1) 0 SC2 (test code = SC2) 0 Antibody Screen (2C) (test Negative ABSC code = Antibody Screen (2C)) Complete Blood Count with [id number] 13:34:07 Test Item Value Reference Range Interpretation Comments WBC (test code = WBC) 3.2 x10 4.8-10.8 L RBC (test code = RBC) 2.31 x10 4.60-6.20 L Hgb (test code = Hgb) 7.5 g/dL 14.0-18.0 CTRB: Mariel ART RN 08/25/2019 13:34: 02 BIRD TENDER/KE MCV (test code = MCV) 97.9 fL 80.0-95.0 H Hct (test code = Hct) 22.6 % 38.0-52.0 CTRB: Mariel ART RN 08/25/2019 13:34: 02 BIRD TENDER/KE RDW (test code = RDW) 18.6 % 11.5-14.5 H MCHC (test code = MCHC) 33.3 g/dL 31.0-36.0 MCH (test code = MCH) 32.6 pg 26.0-32.0 H Platelets (test code = 104 x10 140-440 L Platelets) MPV (test code = MPV) 7.7 fL 7.5-11.2 Slide Review (test code Auto N Resu lt created by = Slide Review) GL_SET_SLIDE _REVIEW_A UTO Automated [id number] 13:34:07 Test Item Value Reference Range Interpretation Comments Neutro Auto (test code = Neutro Auto) 74.6 % N Lymph Auto (test code = Lymph Auto) 15.4 % N Winn Auto (test code = Winn Auto) 8.5 % N Eos, Auto (test code = Eos, Auto) 0.6 % N Basophil Auto (test code = Basophil 0.9 % N Auto) Neutro Absolute (test code = Neutro 2.4 x10 2.7-7.3 L Absolute) Lymph Absolute (test code = Lymph 0.5 x10 0.8-3.5 L Absolute) Winn Absolute (test code = Winn 0.3 x10 0.3-0.9 Absolute) Eos Absolute (test code = Eos 0.0 x10 0.0-0.3 Absolute) Baso Absolute (test code = Baso 0.0 x10 0.0-0.1 Absolute) Basic Metabolic [id number] 12:55:11 Test Item Value Reference Range Interpretation Comments Sodium Level (test code = 137 mmol/L 136-145 Sodium Level) Potassium Level (test code 3.9 mmol/L 3.5-5.1 = Potassium Level) Chloride Level (test code = 102 mmol/L 98-107 Chloride Level) CO2 (test code = CO2) 30 mmol/L 21-32 Anion Gap (test code = 5 mmol/L 7-16 L Anion Gap) BUN (test code = BUN) 23 mg/dL 7-18 H Creatinine Level (test code 3.4 mg/dL 0.7-1.3 H = Creatinine Level) Glucose Level (test code = 67 mg/dL 74-106 L Glucose Level) Calcium Level (test code = 7.6 mg/dL 8.5-10.1 L Calcium Level) eGFR AA (test code = eGFR 22 mL/min/1.73 m2 N AA) eGFR Non-AA (test code = 18 mL/min/1.73 m2 N eGFR Non-AA) Basic Metabolic [id number] 12:55:11 Test Item Value Reference Range Interpretation Comments Sodium Level (test code = 137 mmol/L 136-145 Sodium Level) Potassium Level (test code 3.9 mmol/L 3.5-5.1 = Potassium Level) Chloride Level (test code = 102 mmol/L 98-107 Chloride Level) CO2 (test code = CO2) 30 mmol/L 21-32 Anion Gap (test code = 5 mmol/L 7-16 L Anion Gap) BUN (test code = BUN) 23 mg/dL 7-18 H Creatinine Level (test code 3.4 mg/dL 0.7-1.3 H = Creatinine Level) Glucose Level (test code = 67 mg/dL 74-106 L Glucose Level) Calcium Level (test code = 7.6 mg/dL 8.5-10.1 L Calcium Level) eGFR AA (test code = eGFR 22 mL/min/1.73 m2 N AA) eGFR Non-AA (test code = 18 mL/min/1.73 m2 N eGFR Non-AA) Basic Metabolic [id number] 12:55:11 Test Item Value Reference Range Interpretation Comments Sodium Level (test code = 137 mmol/L 136-145 Sodium Level) Potassium Level (test code 3.9 mmol/L 3.5-5.1 = Potassium Level) Chloride Level (test code = 102 mmol/L 98-107 Chloride Level) CO2 (test code = CO2) 30 mmol/L 21-32 Anion Gap (test code = 5 mmol/L 7-16 L Anion Gap) BUN (test code = BUN) 23 mg/dL 7-18 H Creatinine Level (test code 3.4 mg/dL 0.7-1.3 H = Creatinine Level) Glucose Level (test code = 67 mg/dL 74-106 L Glucose Level) Calcium Level (test code = 7.6 mg/dL 8.5-10.1 L Calcium Level) eGFR AA (test code = eGFR 22 mL/min/1.73 m2 N AA) eGFR Non-AA (test code = 18 mL/min/1.73 m2 N eGFR Non-AA) Hepatitis B Surf Ab [id number] 05:12:29<3.1 Status of Immunity Anti-HBs Level Inconsistent with Immunity 0.0 - 9.9Consistent with Immunity >9.9Performed At: [facility] [address] [place], [place] [id number] Malvin Valdez MD Ph:[phone] [id number] 23:01:35No growth at 5 days.POC [id number] 09:03:11 Test Item Value Reference Range Interpretation Comments Glucose POC (test 90 mg/dL 74-106 POC Glucos e used on code = Glucose POC) critical ly ill patients is considered " off-label use" and has no t been cleared or appr denise by the FDA. Altern ative testing methods should be considered i f the patient is crit ically ill. Hepatitis B Surface [id number] 07:52:58 Test Item Value Reference Range Interpretation Comments Hep Bs Ag (test code = Hep Bs Ag) Nonreactive Non Reactive XR Chest 1 View [id number] 07:20:11Patient: JOSE NINA Date/Time08/23/201921:20 CSTReason for ExamFeverReportClinical indication: Fever, congestion, end-stage renal disease, anemia, diabetes and dialysisChest one viewThe heart is enlarged. There is mild central pulmonary vascular congestion. There are prominent interstitial markings throughout both mid and lower lung zones greater on the right. There are small bilateral pleural effusions. Right-sided central venous catheter is noted with its tip in the region of the superior vena cava/right atrium. There are overlying cardiac monitoring leads.IMPRESSION:1. Findings consistent with CHF/volume overload changes with interstitial edema and small bilateral pleural effusions. Underlying pneumonia and atelectasis changes is not excluded2. Right- sided dialysis catheter. Final Dictated by: MD Russell Gustavo MDictated DT/TM: 08/24/2019 7:19 amSigned by: MD Russell Gustavo MSigned (Electronic Signature): 08/24/2019 7:20 amThroat Culture Strep [id number] 22:13:47Streptococcus Group A screen negativeInfluenza A [id number] 22:13:08 Test Item Value Reference Range Interpretation Comments Influenza A Ag (test Positive Negative CTRB Derick ENGLISHRN / ER code = Influenza A 08/23/2019 22:12:37 BIRD TENDER BY Ag) JDANNAChildren tend to shed virus more abundantly and for longer period of time than adults. Therefo re, testing specime ns from adults will oft en yield lower sensitivi ty than testing specime ns from children. Influenza B [id number] 22:13:08 Test Item Value Reference Range Interpretation Comments Influenza B Ag (test Negative Negative Childre n tend to shed code = Influenza B Ag) virus more abundantly and for longer period of time than ad ults. Therefore, test ing specimens from adults will often yiel d lower sensitivity leatha n testing specime ns from children. Streptococcus A Screen Rapid w/ Reflex [id number] 22:11:15 Test Item Value Reference Range Interpretation Comments Strep A Scn (test code = Strep A Negative Negative Scn) Lactic Acid, Plasma (Venous)2019-08-23 21:57:16 Test Item Value Reference Range Interpretation Comments Lactic Acid, Plasma (Venous) (test 1.2 mmol/L 0.4-2.0 code = Lactic Acid, Plasma (Venous)) Comprehensive Metabolic [id number] 21:54:14 Test Item Value Reference Range Interpretation Comments Sodium Level (test code = 137 mmol/L 136-145 Sodium Level) Potassium Level (test code = 3.5 mmol/L 3.5-5.1 Potassium Level) Chloride Level (test code = 101 mmol/L 98-107 Chloride Level) CO2 (test code = CO2) 30 mmol/L 21-32 Anion Gap (test code = Anion 6 mmol/L 7-16 L Gap) BUN (test code = BUN) 23 mg/dL 7-18 H Creatinine Level (test code = 4.0 mg/dL 0.7-1.3 H Creatinine Level) Glucose Level (test code = 85 mg/dL 74-106 Glucose Level) Calcium Level (test code = 8.2 mg/dL 8.5-10.1 L Calcium Level) Alk Phos (test code = Alk Phos) 78 IntlUnit/L 45-122 Bilirubin Total (test code = 0.4 mg/dL 0.2-1.0 Bilirubin Total) Albumin Level (test code = 2.9 g/dL 3.4-5.0 L Albumin Level) Protein Total (test code = 5.8 g/dL 6.4-8.2 L Protein Total) ALT (test code = ALT) 13 IntlUnit/L 12-78 AST (test code = AST) 15 IntlUnit/L 10-34 Comprehensive Metabolic [id number] 21:54:14 Test Item Value Reference Range Interpretation Comments Sodium Level (test code = 137 mmol/L 136-145 Sodium Level) Potassium Level (test code 3.5 mmol/L 3.5-5.1 = Potassium Level) Chloride Level (test code = 101 mmol/L 98-107 Chloride Level) CO2 (test code = CO2) 30 mmol/L 21-32 Anion Gap (test code = 6 mmol/L 7-16 L Anion Gap) BUN (test code = BUN) 23 mg/dL 7-18 H Creatinine Level (test code 4.0 mg/dL 0.7-1.3 H = Creatinine Level) Glucose Level (test code = 85 mg/dL 74-106 Glucose Level) Calcium Level (test code = 8.2 mg/dL 8.5-10.1 L Calcium Level) Alk Phos (test code = Alk 78 IntlUnit/L 45-122 Phos) Bilirubin Total (test code 0.4 mg/dL 0.2-1.0 = Bilirubin Total) Albumin Level (test code = 2.9 g/dL 3.4-5.0 L Albumin Level) Protein Total (test code = 5.8 g/dL 6.4-8.2 L Protein Total) ALT (test code = ALT) 13 IntlUnit/L 12-78 AST (test code = AST) 15 IntlUnit/L 10-34 eGFR AA (test code = eGFR 18 mL/min/1.73 m2 N AA) Comprehensive Metabolic [id number] 21:54:14 Test Item Value Reference Range Interpretation Comments Sodium Level (test code = 137 mmol/L 136-145 Sodium Level) Potassium Level (test code 3.5 mmol/L 3.5-5.1 = Potassium Level) Chloride Level (test code = 101 mmol/L 98-107 Chloride Level) CO2 (test code = CO2) 30 mmol/L 21-32 Anion Gap (test code = 6 mmol/L 7-16 L Anion Gap) BUN (test code = BUN) 23 mg/dL 7-18 H Creatinine Level (test code 4.0 mg/dL 0.7-1.3 H = Creatinine Level) Glucose Level (test code = 85 mg/dL 74-106 Glucose Level) Calcium Level (test code = 8.2 mg/dL 8.5-10.1 L Calcium Level) Alk Phos (test code = Alk 78 IntlUnit/L 45-122 Phos) Bilirubin Total (test code 0.4 mg/dL 0.2-1.0 = Bilirubin Total) Albumin Level (test code = 2.9 g/dL 3.4-5.0 L Albumin Level) Protein Total (test code = 5.8 g/dL 6.4-8.2 L Protein Total) ALT (test code = ALT) 13 IntlUnit/L 12-78 AST (test code = AST) 15 IntlUnit/L 10-34 eGFR AA (test code = eGFR 18 mL/min/1.73 m2 N AA) eGFR Non-AA (test code = 15 mL/min/1.73 m2 N eGFR Non-AA) Complete Blood Count with [id number] 21:23:15 Test Item Value Reference Range Interpretation Comments WBC (test code = WBC) 5.4 x10 4.8-10.8 RBC (test code = RBC) 2.72 x10 4.60-6.20 L Hgb (test code = Hgb) 8.9 g/dL 14.0-18.0 L Hct (test code = Hct) 26.3 % 38.0-52.0 L MCV (test code = MCV) 96.7 fL 80.0-95.0 H RDW (test code = RDW) 19.1 % 11.5-14.5 H MCHC (test code = MCHC) 33.9 g/dL 31.0-36.0 MCH (test code = MCH) 32.8 pg 26.0-32.0 H Platelets (test code = 125 x10 140-440 L Platelets) MPV (test code = MPV) 7.7 fL 7.5-11.2 Slide Review (test code Auto N Resu lt created by = Slide Review) GL_SET_SLIDE _REVIEW_A UTO Automated [id number] 21:23:15 Test Item Value Reference Range Interpretation Comments Neutro Auto (test code = Neutro Auto) 88.3 % N Lymph Auto (test code = Lymph Auto) 3.0 % N Winn Auto (test code = Winn Auto) 8.0 % N Eos, Auto (test code = Eos, Auto) 0.2 % N Basophil Auto (test code = Basophil 0.5 % N Auto) Neutro Absolute (test code = Neutro 4.8 x10 2.7-7.3 Absolute) Lymph Absolute (test code = Lymph 0.2 x10 0.8-3.5 L Absolute) Winn Absolute (test code = Winn 0.4 x10 0.3-0.9 Absolute) Eos Absolute (test code = Eos 0.0 x10 0.0-0.3 Absolute) Baso Absolute (test code = Baso 0.0 x10 0.0-0.1 Absolute) CHEST 1 VIEW [id number] 07:34:[address] [id number] IMAGING REPORTPatient Name: Celsa NINA of Service: [id number]: 69 Sex: M Order #: [id number] Room: [facility]: 1950 X-Ray Number: [id number] Record Number: [id number] Hospital Number: [id number] Physician: Ubaldo CARREONing Physician: Lloyd CARREON one view 08/11/2019History: Shortness breath, renal failure, hypertension, atrial fibrillationComparison: 07/28/2019TECHNIQUE: Upright AP portable chest x-rayFINDINGS:Right upper extremity dialysis device remains in place. Vascular stent andsurgical clips projected over the right upper chest are stable.Cardiac, hilar, and mediastinal structures are unchanged with cardiomegalynoted. Lungs still show diffusely increased interstitial and airspaceopacities which may be due to edema or pneumonia. No new bony or softtissue abnormalities are identified.Impression:No improvement. Diffuse pulmonary edema versus interstitial pneumonia.The study was performed on an emergent basis and preliminary report faxedto the Emergency Department by the [facility] service nearthe time of the exam.Electronically Signed By: Rao Jimenez M.D., 08/11/2019 7:31 AMLegally authenticated by DEB MCCONNELL 2019-08-11 07:31:[id number] 13:05:00 Test Item Value Reference Range Interpretation Comments WBC (test code = 5.3 K/UL 3.5-10.9 WBC) RBC (test code = 3.11 M/UL 4.3-5.7 L RBC) HGB (test code = 9.2 G/DL 13.0-17.9 L HGB) HCT (test code = 29.2 % 38-52 L HCT) MCV (test code = 93.9 FL 80-98 MCV) MCH (test code = 29.6 PG 28-32 MCH) MCHC (test code = 31.5 G/DL 32.5-36.5 L MCHC) RDW (test code = 18.6 % 11.5-14.5 H RDW) PLT (test code = 124 K/UL 150-450 L PLT) MPV (test code = 10.0 FL 7.4-10.4 MPV) MANDIFF (test code = NO MANDIFF) SCAN (test code = NO SCAN) NEUT% (test code = 64.7 % 40-75 NEUT%) LYMPH% (test code = 20.4 % 24-44 L LYMPH%) MONO% (test code = 10.3 % 0-13 MONO%) EOS% (test code = 2.9 % 0-4 EOS%) BASO % (test code = 1.1 % 0-2 BASO%) IG (test code = IG) 0 % 0-1 IG% (test code = 0.6 % 0-1 IG% = Metam yelocytes, IG%) Myelocytes, and Promyelocytes. (Immature neutr ophils not including " bands".) > 3% IG indic ates risk of sepsis NRBC% (test code = 0 /100 WBC NRBC%) ABS NEUT (test code 3.4 K/UL 1.2-7.2 = NEUT) ISTAT CHEM [id number] 12:25:00 Test Item Value Reference Range Interpretation Comments ISTATNA (test code = 136 MMOL/L 137-145 L ISTATNA) ISTATK (test code = 3.4 MMOL/L 3.6-5.0 L ISTATK) ISTATCL (test code = 95 MMOL/L 98-107 L ISTATCL) ISTIONCA (test code = 1.29 MMOL/L 1.12-1.32 ISTIONCA) ISTCO2 (test code = 32 MMOL/L 22-30 H ISTCO2) ISTATGLU (test code = 78 MG/DL 65-110 ISTATGLU) ISTATBUN (test code = 15.0 MG/DL 7.0-20.0 ISTATBUN) ISTCREA (test code = 2.8 MG/DL 0.7-1.5 H ISTCREA) ISTATHCT (test code = 26 %PCV 37.0-52.0 L ISTATHCT) ISTATHGB (test code = 8.8 G/DL 12.0-18.0 L Notifi ed Nurse/MD of ISTATHGB) results outside of Reference Range s ISTANGAP (test code = 13 MMOL/L Notifi ed Nurse/MD of ISTANGAP) results outside of Reference Range s CHEST XR 2 [id number] 11:59:[address] [id number] IMAGING REPORTPatient Name: Celsa NINA of Service: [id number]: 69 Sex: M Order #: [id number] Room: [facility]: 1950 X-Ray Number: [id number] Record Number: [id number] Hospital Number: [id number] Physician: Sofia RODRIGUEZing Physician: RETA RUSH SExam: Chest AP and lateralHistory: Altered mental status, dialysis todayComparison: No comparison availableFindings: There is a left-sided hemodialysis catheter which courses througha stent and terminates over the left heart. This catheter tip may belocated within a persistent left SVC. Correlation is recommended. There aresmall bilateral pleural effusions with associatedatelectasis/consolidation, greater on the left. The interstitial m arkingsare prominent bilaterally. Cardiomegaly. No definite pneumothorax. Thereare postsurgical clips in the left upper chest region.Impression:1. Findings are suggestive of CHF/pulmonary edema as above. Correlation clau underlying inflammatory or infectious process is recommended.2. The catheter tip projects over the left heart and may be located withina persistent SVC. Correlation is recommended.Electronically Signed By: Reji Adame M.D., 07/28/2019 11:56 AMLegally authenticated by BALDO ROTHMAN JR 2019-07-28 11:56:59POC [id number] 17:06:42 Test Item Value Reference Range Interpretation Comments Glucose POC (test 81 mg/dL 74-106 POC Glucos e used on code = Glucose POC) critical ly ill patients is considered " off-label use" and has no t been cleared or appr denise by the FDA. Altern ative testing methods should be considered i f the patient is crit ically ill. POC [id number] 11:55:32 Test Item Value Reference Range Interpretation Comments Glucose POC (test 95 mg/dL 74-106 POC Glucos e used on code = Glucose POC) critical ly ill patients is considered " off-label use" and has no t been cleared or appr denise by the FDA. Altern ative testing methods should be considered i f the patient is crit ically ill. POC [id number] 07:37:23 Test Item Value Reference Range Interpretation Comments Glucose POC (test 76 mg/dL 74-106 POC Glucos e used on code = Glucose POC) critical ly ill patients is considered " off-label use" and has no t been cleared or appr denise by the FDA. Altern ative testing methods should be considered i f the patient is crit ically ill. Basic Metabolic [id number] 07:23:25 Test Item Value Reference Range Interpretation Comments Sodium Level (test code = Sodium 135 mmol/L 136-145 L Level) Potassium Level (test code = 3.8 mmol/L 3.5-5.1 Potassium Level) Chloride Level (test code = 96 mmol/L 98-107 L Chloride Level) CO2 (test code = CO2) 31 mmol/L 21-32 Anion Gap (test code = Anion Gap) 8 mmol/L 7-16 BUN (test code = BUN) 39 mg/dL 7-18 H Creatinine Level (test code = 5.2 mg/dL 0.7-1.3 H Creatinine Level) Glucose Level (test code = Glucose 70 mg/dL 74-106 L Level) Calcium Level (test code = Calcium 8.4 mg/dL 8.5-10.1 L Level) Basic Metabolic [id number] 07:23:25 Test Item Value Reference Range Interpretation Comments Sodium Level (test code = 135 mmol/L 136-145 L Sodium Level) Potassium Level (test code 3.8 mmol/L 3.5-5.1 = Potassium Level) Chloride Level (test code = 96 mmol/L 98-107 L Chloride Level) CO2 (test code = CO2) 31 mmol/L 21-32 Anion Gap (test code = 8 mmol/L 7-16 Anion Gap) BUN (test code = BUN) 39 mg/dL 7-18 H Creatinine Level (test code 5.2 mg/dL 0.7-1.3 H = Creatinine Level) Glucose Level (test code = 70 mg/dL 74-106 L Glucose Level) Calcium Level (test code = 8.4 mg/dL 8.5-10.1 L Calcium Level) eGFR AA (test code = eGFR 14 mL/min/1.73 m2 N AA) Basic Metabolic [id number] 07:23:25 Test Item Value Reference Range Interpretation Comments Sodium Level (test code = 135 mmol/L 136-145 L Sodium Level) Potassium Level (test code 3.8 mmol/L 3.5-5.1 = Potassium Level) Chloride Level (test code = 96 mmol/L 98-107 L Chloride Level) CO2 (test code = CO2) 31 mmol/L 21-32 Anion Gap (test code = 8 mmol/L 7-16 Anion Gap) BUN (test code = BUN) 39 mg/dL 7-18 H Creatinine Level (test code 5.2 mg/dL 0.7-1.3 H = Creatinine Level) Glucose Level (test code = 70 mg/dL 74-106 L Glucose Level) Calcium Level (test code = 8.4 mg/dL 8.5-10.1 L Calcium Level) eGFR AA (test code = eGFR 14 mL/min/1.73 m2 N AA) eGFR Non-AA (test code = 11 mL/min/1.73 m2 N eGFR Non-AA) Complete Blood Count with [id number] 07:09:02 Test Item Value Reference Range Interpretation Comments WBC (test code = WBC) 4.9 x10 4.8-10.8 RBC (test code = RBC) 3.29 x10 4.60-6.20 L Hgb (test code = Hgb) 10.1 g/dL 14.0-18.0 L MCV (test code = MCV) 90.3 fL 80.0-95.0 Hct (test code = Hct) 29.7 % 38.0-52.0 L MCHC (test code = MCHC) 34.0 g/dL 31.0-36.0 RDW (test code = RDW) 16.5 % 11.5-14.5 H MCH (test code = MCH) 30.7 pg 26.0-32.0 Platelets (test code = 174 x10 140-440 Platelets) MPV (test code = MPV) 7.8 fL 7.5-11.2 Slide Review (test code Auto N Resu lt created by = Slide Review) GL_SET_SLIDE _REVIEW_A UTO Automated [id number] 07:09:02 Test Item Value Reference Range Interpretation Comments Neutro Auto (test code = Neutro Auto) 60.1 % N Lymph Auto (test code = Lymph Auto) 28.5 % N Winn Auto (test code = Winn Auto) 7.3 % N Eos, Auto (test code = Eos, Auto) 3.2 % N Basophil Auto (test code = Basophil 0.9 % N Auto) Neutro Absolute (test code = Neutro 2.9 x10 2.7-7.3 Absolute) Lymph Absolute (test code = Lymph 1.4 x10 0.8-3.5 Absolute) Winn Absolute (test code = Winn 0.4 x10 0.3-0.9 Absolute) Eos Absolute (test code = Eos 0.2 x10 0.0-0.3 Absolute) Baso Absolute (test code = Baso 0.0 x10 0.0-0.1 Absolute) POC [id number] 21:56:48 Test Item Value Reference Range Interpretation Comments Glucose POC (test 121 mg/dL 74-106 H POC Glucos e used on code = Glucose POC) critical ly ill patients is considered " off-label use" and has no t been cleared or appr denise by the FDA. Altern ative testing methods should be considered i f the patient is crit ically ill. POC [id number] 17:06:41 Test Item Value Reference Range Interpretation Comments Glucose POC (test 82 mg/dL 74-106 POC Glucos e used on code = Glucose POC) critical ly ill patients is considered " off-label use" and has no t been cleared or appr denise by the FDA. Altern ative testing methods should be considered i f the patient is crit ically ill. POC [id number] 12:05:36 Test Item Value Reference Range Interpretation Comments Glucose POC (test 107 mg/dL 74-106 H POC Glucos e used on code = Glucose POC) critical ly ill patients is considered " off-label use" and has no t been cleared or appr denise by the FDA. Altern ative testing methods should be considered i f the patient is crit ically ill. Basic Metabolic [id number] 07:33:45 Test Item Value Reference Range Interpretation Comments Sodium Level (test code = Sodium 140 mmol/L 136-145 Level) Potassium Level (test code = 3.5 mmol/L 3.5-5.1 Potassium Level) Chloride Level (test code = 99 mmol/L 98-107 Chloride Level) CO2 (test code = CO2) 33 mmol/L 21-32 H Anion Gap (test code = Anion Gap) 8 mmol/L 7-16 BUN (test code = BUN) 25 mg/dL 7-18 H Creatinine Level (test code = 4.0 mg/dL 0.7-1.3 H Creatinine Level) Glucose Level (test code = Glucose 72 mg/dL 74-106 L Level) Calcium Level (test code = Calcium 8.3 mg/dL 8.5-10.1 L Level) Basic Metabolic [id number] 07:33:45 Test Item Value Reference Range Interpretation Comments Sodium Level (test code = 140 mmol/L 136-145 Sodium Level) Potassium Level (test code 3.5 mmol/L 3.5-5.1 = Potassium Level) Chloride Level (test code = 99 mmol/L 98-107 Chloride Level) CO2 (test code = CO2) 33 mmol/L 21-32 H Anion Gap (test code = 8 mmol/L 7-16 Anion Gap) BUN (test code = BUN) 25 mg/dL 7-18 H Creatinine Level (test code 4.0 mg/dL 0.7-1.3 H = Creatinine Level) Glucose Level (test code = 72 mg/dL 74-106 L Glucose Level) Calcium Level (test code = 8.3 mg/dL 8.5-10.1 L Calcium Level) eGFR AA (test code = eGFR 18 mL/min/1.73 m2 N AA) Basic Metabolic [id number] 07:33:45 Test Item Value Reference Range Interpretation Comments Sodium Level (test code = 140 mmol/L 136-145 Sodium Level) Potassium Level (test code 3.5 mmol/L 3.5-5.1 = Potassium Level) Chloride Level (test code = 99 mmol/L 98-107 Chloride Level) CO2 (test code = CO2) 33 mmol/L 21-32 H Anion Gap (test code = 8 mmol/L 7-16 Anion Gap) BUN (test code = BUN) 25 mg/dL 7-18 H Creatinine Level (test code 4.0 mg/dL 0.7-1.3 H = Creatinine Level) Glucose Level (test code = 72 mg/dL 74-106 L Glucose Level) Calcium Level (test code = 8.3 mg/dL 8.5-10.1 L Calcium Level) eGFR AA (test code = eGFR 18 mL/min/1.73 m2 N AA) eGFR Non-AA (test code = 15 mL/min/1.73 m2 N eGFR Non-AA) Complete Blood Count with [id number] 07:33:44 Test Item Value Reference Range Interpretation Comments WBC (test code = WBC) 5.5 x10 4.8-10.8 RBC (test code = RBC) 3.47 x10 4.60-6.20 L Hgb (test code = Hgb) 10.7 g/dL 14.0-18.0 L Hct (test code = Hct) 31.3 % 38.0-52.0 L MCV (test code = MCV) 90.3 fL 80.0-95.0 RDW (test code = RDW) 16.4 % 11.5-14.5 H MCHC (test code = MCHC) 34.2 g/dL 31.0-36.0 MCH (test code = MCH) 30.8 pg 26.0-32.0 Platelets (test code = 197 x10 140-440 Platelets) MPV (test code = MPV) 7.9 fL 7.5-11.2 Slide Review (test code Auto N Resu lt created by = Slide Review) GL_SET_SLIDE _REVIEW_A UTO Automated [id number] 07:33:44 Test Item Value Reference Range Interpretation Comments Neutro Auto (test code = Neutro Auto) 65.4 % N Lymph Auto (test code = Lymph Auto) 23.6 % N Winn Auto (test code = Winn Auto) 7.3 % N Eos, Auto (test code = Eos, Auto) 2.8 % N Basophil Auto (test code = Basophil 0.9 % N Auto) Neutro Absolute (test code = Neutro 3.6 x10 2.7-7.3 Absolute) Lymph Absolute (test code = Lymph 1.3 x10 0.8-3.5 Absolute) Winn Absolute (test code = Winn 0.4 x10 0.3-0.9 Absolute) Eos Absolute (test code = Eos 0.2 x10 0.0-0.3 Absolute) Baso Absolute (test code = Baso 0.0 x10 0.0-0.1 Absolute) POC [id number] 04:59:19 Test Item Value Reference Range Interpretation Comments Glucose POC (test 83 mg/dL 74-106 POC Glucos e used on code = Glucose POC) critical ly ill patients is considered " off-label use" and has no t been cleared or appr denise by the FDA. Altern ative testing methods should be considered i f the patient is crit ically ill. POC [id number] 19:22:53 Test Item Value Reference Range Interpretation Comments Glucose POC (test 94 mg/dL 74-106 POC Glucos e used on code = Glucose POC) critical ly ill patients is considered " off-label use" and has no t been cleared or appr denise by the FDA. Altern ative testing methods should be considered i f the patient is crit ically ill. Occult Blood [id number] 14:30:24 Test Item Value Reference Range Interpretation Comments Fecal Occult Blood (test code = Fecal Neg Neg Occult Blood) POC [id number] 12:06:25 Test Item Value Reference Range Interpretation Comments Glucose POC (test 105 mg/dL 74-106 POC Glucos e used on code = Glucose POC) critical ly ill patients is considered " off-label use" and has no t been cleared or appr denise by the FDA. Altern ative testing methods should be considered i f the patient is crit ically ill. Complete Blood Count with [id number] 08:47:16 Test Item Value Reference Range Interpretation Comments WBC (test code = WBC) 5.4 x10 4.8-10.8 RBC (test code = RBC) 3.39 x10 4.60-6.20 L Hgb (test code = Hgb) 10.3 g/dL 14.0-18.0 L Hct (test code = Hct) 30.7 % 38.0-52.0 L MCV (test code = MCV) 90.4 fL 80.0-95.0 RDW (test code = RDW) 16.1 % 11.5-14.5 H MCHC (test code = MCHC) 33.6 g/dL 31.0-36.0 MCH (test code = MCH) 30.4 pg 26.0-32.0 Platelets (test code = 176 x10 140-440 Platelets) MPV (test code = MPV) 7.7 fL 7.5-11.2 Slide Review (test code Auto N Resu lt created by = Slide Review) GL_SET_SLIDE _REVIEW_A UTO Automated [id number] 08:47:16 Test Item Value Reference Range Interpretation Comments Neutro Auto (test code = Neutro Auto) 69.6 % N Lymph Auto (test code = Lymph Auto) 20.1 % N Winn Auto (test code = Winn Auto) 6.7 % N Eos, Auto (test code = Eos, Auto) 2.9 % N Basophil Auto (test code = Basophil 0.7 % N Auto) Neutro Absolute (test code = Neutro 3.8 x10 2.7-7.3 Absolute) Lymph Absolute (test code = Lymph 1.1 x10 0.8-3.5 Absolute) Winn Absolute (test code = Winn 0.4 x10 0.3-0.9 Absolute) Eos Absolute (test code = Eos 0.2 x10 0.0-0.3 Absolute) Baso Absolute (test code = Baso 0.0 x10 0.0-0.1 Absolute) Basic Metabolic [id number] 07:36:15 Test Item Value Reference Range Interpretation Comments Sodium Level (test code = Sodium 139 mmol/L 136-145 Level) Potassium Level (test code = 3.4 mmol/L 3.5-5.1 L Potassium Level) Chloride Level (test code = 100 mmol/L 98-107 Chloride Level) CO2 (test code = CO2) 30 mmol/L 21-32 Anion Gap (test code = Anion Gap) 9 mmol/L 7-16 BUN (test code = BUN) 34 mg/dL 7-18 H Creatinine Level (test code = 5.2 mg/dL 0.7-1.3 H Creatinine Level) Glucose Level (test code = Glucose 73 mg/dL 74-106 L Level) Calcium Level (test code = Calcium 8.1 mg/dL 8.5-10.1 L Level) Basic Metabolic [id number] 07:36:15 Test Item Value Reference Range Interpretation Comments Sodium Level (test code = 139 mmol/L 136-145 Sodium Level) Potassium Level (test code 3.4 mmol/L 3.5-5.1 L = Potassium Level) Chloride Level (test code = 100 mmol/L 98-107 Chloride Level) CO2 (test code = CO2) 30 mmol/L 21-32 Anion Gap (test code = 9 mmol/L 7-16 Anion Gap) BUN (test code = BUN) 34 mg/dL 7-18 H Creatinine Level (test code 5.2 mg/dL 0.7-1.3 H = Creatinine Level) Glucose Level (test code = 73 mg/dL 74-106 L Glucose Level) Calcium Level (test code = 8.1 mg/dL 8.5-10.1 L Calcium Level) eGFR AA (test code = eGFR 14 mL/min/1.73 m2 N AA) Basic Metabolic [id number] 07:36:15 Test Item Value Reference Range Interpretation Comments Sodium Level (test code = 139 mmol/L 136-145 Sodium Level) Potassium Level (test code 3.4 mmol/L 3.5-5.1 L = Potassium Level) Chloride Level (test code = 100 mmol/L 98-107 Chloride Level) CO2 (test code = CO2) 30 mmol/L 21-32 Anion Gap (test code = 9 mmol/L 7-16 Anion Gap) BUN (test code = BUN) 34 mg/dL 7-18 H Creatinine Level (test code 5.2 mg/dL 0.7-1.3 H = Creatinine Level) Glucose Level (test code = 73 mg/dL 74-106 L Glucose Level) Calcium Level (test code = 8.1 mg/dL 8.5-10.1 L Calcium Level) eGFR AA (test code = eGFR 14 mL/min/1.73 m2 N AA) eGFR Non-AA (test code = 11 mL/min/1.73 m2 N eGFR Non-AA) POC [id number] 05:10:28 Test Item Value Reference Range Interpretation Comments Glucose POC (test 76 mg/dL 74-106 POC Glucos e used on code = Glucose POC) critical ly ill patients is considered " off-label use" and has no t been cleared or appr denise by the FDA. Altern ative testing methods should be considered i f the patient is crit ically ill. POC [id number] 19:39:42 Test Item Value Reference Range Interpretation Comments Glucose POC (test 101 mg/dL 74-106 POC Glucos e used on code = Glucose POC) critical ly ill patients is considered " off-label use" and has no t been cleared or appr denise by the FDA. Altern ative testing methods should be considered i f the patient is crit ically ill. POC [id number] 16:56:30 Test Item Value Reference Range Interpretation Comments Glucose POC (test 95 mg/dL 74-106 POC Glucos e used on code = Glucose POC) critical ly ill patients is considered " off-label use" and has no t been cleared or appr denise by the FDA. Altern ative testing methods should be considered i f the patient is crit ically ill. POC [id number] 14:55:50 Test Item Value Reference Range Interpretation Comments Glucose POC (test 82 mg/dL 74-106 POC Glucos e used on code = Glucose POC) critical ly ill patients is considered " off-label use" and has no t been cleared or appr denise by the FDA. Altern ative testing methods should be considered i f the patient is crit ically ill. POC [id number] 11:15:16 Test Item Value Reference Range Interpretation Comments Glucose POC (test 84 mg/dL 74-106 POC Glucos e used on code = Glucose POC) critical ly ill patients is considered " off-label use" and has no t been cleared or appr denise by the FDA. Altern ative testing methods should be considered i f the patient is crit ically ill. POC [id number] 11:15:12 Test Item Value Reference Range Interpretation Comments Glucose POC (test 83 mg/dL 74-106 POC Glucos e used on code = Glucose POC) critical ly ill patients is considered " off-label use" and has no t been cleared or appr denise by the FDA. Altern ative testing methods should be considered i f the patient is crit ically ill. Hepatitis B Surf Ab [id number] 06:09:124.3 Status of Immunity Anti-HBs Level -- Inconsistent with Immunity 0.0 - 9.9Consistent with Immunity >9.9Performed At: [facility] [address] [id number] Valdez MD Ph:[phone] B Core Ab, Tot 2019-03-10 06:09:12NegativePerformed At: [facility] [address] [id number] Valdez MD Ph:[phone] [id number] 17:50:17 Test Item Value Reference Range Interpretation Comments Glucose POC (test 81 mg/dL 74-106 POC Glucos e used on code = Glucose POC) critical ly ill patients is considered " off-label use" and has no t been cleared or appr denise by the FDA. Altern ative testing methods should be considered i f the patient is crit ically ill. POC [id number] 13:46:08 Test Item Value Reference Range Interpretation Comments Glucose POC (test 83 mg/dL 74-106 POC Glucos e used on code = Glucose POC) critical ly ill patients is considered " off-label use" and has no t been cleared or appr denise by the FDA. Altern ative testing methods should be considered i f the patient is crit ically ill. Red Blood Cells [id number] 11:23:36 Test Item Value Reference Range Interpretation Comments # of Units (test code = # 2 N of Units) RBC Trn Reason (test code Hgb <7, symptomatic N = RBC Trn Reason) RBC Product Ready (test RBC Ready code = RBC Product Ready) Complete Blood Count with [id number] 08:17:23 Test Item Value Reference Range Interpretation Comments WBC (test code = WBC) 5.9 x10 4.8-10.8 RBC (test code = RBC) 2.50 x10 4.60-6.20 L Hgb (test code = Hgb) 7.6 g/dL 14.0-18.0 Result s called to and read back by: Naif YEAGER RN/ANIL 03/09 08:17:20 CDT Hct (test code = Hct) 22.5 % 38.0-52.0 Result s called to and read back by: Naif YEAGER RN/ANIL 03/09 08:17:20 CDT MCV (test code = MCV) 90.0 fL 80.0-95.0 MCHC (test code = MCHC) 33.9 g/dL 31.0-36.0 RDW (test code = RDW) 18.3 % 11.5-14.5 H MCH (test code = MCH) 30.5 pg 26.0-32.0 Platelets (test code = 158 x10 140-440 Platelets) MPV (test code = MPV) 8.3 fL 7.5-11.2 Slide Review (test code Auto N Resu lt created by = Slide Review) GL_SET_SLIDE _REVIEW_A UTO Automated [id number] 08:17:23 Test Item Value Reference Range Interpretation Comments Neutro Auto (test code = Neutro Auto) 73.6 % N Lymph Auto (test code = Lymph Auto) 15.4 % N Winn Auto (test code = Winn Auto) 8.8 % N Eos, Auto (test code = Eos, Auto) 1.2 % N Basophil Auto (test code = Basophil 1.0 % N Auto) Neutro Absolute (test code = Neutro 4.3 x10 2.7-7.3 Absolute) Lymph Absolute (test code = Lymph 0.9 x10 0.8-3.5 Absolute) Winn Absolute (test code = Winn 0.5 x10 0.3-0.9 Absolute) Eos Absolute (test code = Eos 0.1 x10 0.0-0.3 Absolute) Baso Absolute (test code = Baso 0.1 x10 0.0-0.1 Absolute) POC [id number] 05:05:10 Test Item Value Reference Range Interpretation Comments Glucose POC (test 77 mg/dL 74-106 POC Glucos e used on code = Glucose POC) critical ly ill patients is considered " off-label use" and has no t been cleared or appr denise by the FDA. Altern ative testing methods should be considered i f the patient is crit ically ill. POC [id number] 20:21:57 Test Item Value Reference Range Interpretation Comments Glucose POC (test 86 mg/dL 74-106 POC Glucos e used on code = Glucose POC) critical ly ill patients is considered " off-label use" and has no t been cleared or appr denise by the FDA. Altern ative testing methods should be considered i f the patient is crit ically ill. Red Blood Cells [id number] 17:16:48 Test Item Value Reference Range Interpretation Comments # of Units (test code = # 1 N of Units) RBC Trn Reason (test code Hgb <7, symptomatic N = RBC Trn Reason) RBC Product Ready (test RBC Ready code = RBC Product Ready) POC [id number] 16:18:32 Test Item Value Reference Range Interpretation Comments Glucose POC (test 97 mg/dL 74-106 POC Glucos e used on code = Glucose POC) critical ly ill patients is considered " off-label use" and has no t been cleared or appr denise by the FDA. Altern ative testing methods should be considered i f the patient is crit ically ill. POC [id number] 16:18:23 Test Item Value Reference Range Interpretation Comments Glucose POC (test 78 mg/dL 74-106 POC Glucos e used on code = Glucose POC) critical ly ill patients is considered " off-label use" and has no t been cleared or appr denise by the FDA. Altern ative testing methods should be considered i f the patient is crit ically ill. [id number] 15:50:39 Test Item Value Reference Range Interpretation Comments Previous History (test code Yes Prev History = Previous History) BBID (test code = BBID) [id number] Methodology (test code = Ortho-Vision(OV) Methodology) Anti-A (test code = Anti-A) 0 Anti-B (test code = Anti-B) 4+ Anti-D (test code = Anti-D) 4+ DCon (test code = DCon) 0 A1 (test code = A1) 3+ B cells (test code = B 0 cells) ABORh (test code = ABORh) B POS 2C [id number] 15:50:39 Test Item Value Reference Range Interpretation Comments Methodology (test code = Ortho-Vision(OV) Methodology) SC1 (test code = SC1) 0 SC2 (test code = SC2) 0 Antibody Screen (2C) (test Negative ABSC code = Antibody Screen (2C)) POC [id number] 15:48:04 Test Item Value Reference Range Interpretation Comments Glucose POC (test 78 mg/dL 74-106 POC Glucos e used on code = Glucose POC) critical ly ill patients is considered " off-label use" and has no t been cleared or appr denise by the FDA. Altern ative testing methods should be considered i f the patient is crit ically ill. ABORh [id number] 14:37:38 Test Item Value Reference Range Interpretation Comments Methodology (test code = Test-Tube(TT) Methodology) Anti-A (test code = Anti-A) 0 Anti-B (test code = Anti-B) 4+ Anti-AB (test code = Anti-AB) NT Anti-D (test code = Anti-D) 3+ ABORh Retype (test code = ABORh B POS Retype) Complete Blood Count with [id number] 08:45:22 Test Item Value Reference Range Interpretation Comments WBC (test code = WBC) 5.0 x10 4.8-10.8 RBC (test code = RBC) 2.22 x10 4.60-6.20 L Hgb (test code = Hgb) 6.9 g/dL 14.0-18.0 H.Joshua meza RN/ 03/08/2019 06:54 :52 CDT Hct (test code = Hct) 19.8 % 38.0-52.0 H.Joshua meza RN/MR 03/08/2019 06:54 :52 CDT MCV (test code = MCV) 89.5 fL 80.0-95.0 MCHC (test code = MCHC) 34.6 g/dL 31.0-36.0 RDW (test code = RDW) 18.4 % 11.5-14.5 H MCH (test code = MCH) 31.0 pg 26.0-32.0 Platelets (test code = 127 x10 140-440 L Platelets) MPV (test code = MPV) 8.2 fL 7.5-11.2 Slide Review (test code Auto N Resu lt created by = Slide Review) GL_SET_SLIDE _REVIEW_A [facility] Comprehensive Metabolic [id number] 07:07:11 Test Item Value Reference Range Interpretation Comments Sodium Level (test code = 144 mmol/L 136-145 Sodium Level) Potassium Level (test code = 3.5 mmol/L 3.5-5.1 Potassium Level) Chloride Level (test code = 104 mmol/L 98-107 Chloride Level) CO2 (test code = CO2) 33 mmol/L 21-32 H Anion Gap (test code = Anion 7 mmol/L 7-16 Gap) BUN (test code = BUN) 19 mg/dL 7-18 H Creatinine Level (test code = 3.3 mg/dL 0.7-1.3 H Creatinine Level) Glucose Level (test code = 63 mg/dL 74-106 L Glucose Level) Calcium Level (test code = 8.5 mg/dL 8.5-10.1 Calcium Level) Alk Phos (test code = Alk Phos) 84 IntlUnit/L 45-122 Bilirubin Total (test code = 0.5 mg/dL 0.2-1.0 Bilirubin Total) Albumin Level (test code = 2.9 g/dL 3.4-5.0 L Albumin Level) Protein Total (test code = 5.8 g/dL 6.4-8.2 L Protein Total) ALT (test code = ALT) 10 IntlUnit/L 12-78 L AST (test code = AST) 10 IntlUnit/L 10-34 Comprehensive Metabolic [id number] 07:07:11 Test Item Value Reference Range Interpretation Comments Sodium Level (test code = 144 mmol/L 136-145 Sodium Level) Potassium Level (test code 3.5 mmol/L 3.5-5.1 = Potassium Level) Chloride Level (test code = 104 mmol/L 98-107 Chloride Level) CO2 (test code = CO2) 33 mmol/L 21-32 H Anion Gap (test code = 7 mmol/L 7-16 Anion Gap) BUN (test code = BUN) 19 mg/dL 7-18 H Creatinine Level (test code 3.3 mg/dL 0.7-1.3 H = Creatinine Level) Glucose Level (test code = 63 mg/dL 74-106 L Glucose Level) Calcium Level (test code = 8.5 mg/dL 8.5-10.1 Calcium Level) Alk Phos (test code = Alk 84 IntlUnit/L 45-122 Phos) Bilirubin Total (test code 0.5 mg/dL 0.2-1.0 = Bilirubin Total) Albumin Level (test code = 2.9 g/dL 3.4-5.0 L Albumin Level) Protein Total (test code = 5.8 g/dL 6.4-8.2 L Protein Total) ALT (test code = ALT) 10 IntlUnit/L 12-78 L AST (test code = AST) 10 IntlUnit/L 10-34 eGFR AA (test code = eGFR 23 mL/min/1.73 m2 N AA) Comprehensive Metabolic [id number] 07:07:11 Test Item Value Reference Range Interpretation Comments Sodium Level (test code = 144 mmol/L 136-145 Sodium Level) Potassium Level (test code 3.5 mmol/L 3.5-5.1 = Potassium Level) Chloride Level (test code = 104 mmol/L 98-107 Chloride Level) CO2 (test code = CO2) 33 mmol/L 21-32 H Anion Gap (test code = 7 mmol/L 7-16 Anion Gap) BUN (test code = BUN) 19 mg/dL 7-18 H Creatinine Level (test code 3.3 mg/dL 0.7-1.3 H = Creatinine Level) Glucose Level (test code = 63 mg/dL 74-106 L Glucose Level) Calcium Level (test code = 8.5 mg/dL 8.5-10.1 Calcium Level) Alk Phos (test code = Alk 84 IntlUnit/L 45-122 Phos) Bilirubin Total (test code 0.5 mg/dL 0.2-1.0 = Bilirubin Total) Albumin Level (test code = 2.9 g/dL 3.4-5.0 L Albumin Level) Protein Total (test code = 5.8 g/dL 6.4-8.2 L Protein Total) ALT (test code = ALT) 10 IntlUnit/L 12-78 L AST (test code = AST) 10 IntlUnit/L 10-34 eGFR AA (test code = eGFR 23 mL/min/1.73 m2 N AA) eGFR Non-AA (test code = 19 mL/min/1.73 m2 N eGFR Non-AA) Automated [id number] 06:54:56 Test Item Value Reference Range Interpretation Comments Neutro Auto (test code = Neutro Auto) 71.7 % N Lymph Auto (test code = Lymph Auto) 18.6 % N Winn Auto (test code = Winn Auto) 8.9 % N Eos, Auto (test code = Eos, Auto) 0.2 % N Basophil Auto (test code = Basophil 0.6 % N Auto) Neutro Absolute (test code = Neutro 3.6 x10 2.7-7.3 Absolute) Lymph Absolute (test code = Lymph 0.9 x10 0.8-3.5 Absolute) Winn Absolute (test code = Winn 0.4 x10 0.3-0.9 Absolute) Eos Absolute (test code = Eos 0.0 x10 0.0-0.3 Absolute) Baso Absolute (test code = Baso 0.0 x10 0.0-0.1 Absolute) POC [id number] 02:19:57 Test Item Value Reference Range Interpretation Comments Glucose POC (test 102 mg/dL 74-106 POC Glucos e used on code = Glucose POC) critical ly ill patients is considered " off-label use" and has no t been cleared or appr denise by the FDA. Altern ative testing methods should be considered i f the patient is crit ically ill. XR Hand 2 Views [id number] 16:57:21Patient: JOSE NINA Date/Time03/07/2019 16:44 CDTReason for ExamSwellingReportLIMITED RIGHT HAND SERIES 2 VIEWS:CLINICAL HISTORY: Soft tissu e swelling.Exam quality is limited due to patient's inability to extend the fingers, and positioning. The bony structures are osteoporotic. On the AP view the carpal, and metacarpal bones appear intact. Phalanges are overlapping. No radiopaque foreign bodies are identified.IMPRESSION:1. Soft tissue swelling.2. No acute osseous abnormality is identified, however, the exam quality is limited due to patient positioning and inability to extend the fingers. Final Dictated by: MD Hampton Arthur LDictated DT/TM: 03/07/2019 4:55 pmSigned by: MD Hampton Arthur LSigned (Electronic Signature): 03/07/2019 4:57 pmXR Forearm 2 Views [id number] 15:58:50Patient: JOSE NINA Date/Time03/07/2019 15:40 CDTReason for Examswelling;Other (please specify)ReportRIGHT FOREARM 2 VIEWS:CLINICAL HISTORY: Edema.There is diffuse subcutaneous edema within the forearm, and partially visualized distal upperarm. Bony structures are osteoporotic. Cortical margins are intact. No fracture is identified.IMPRESSION:1. No acute osseous abnormality.2. Subcutaneous edema. Final Dictated by: MD Hampton Arthur LDictated DT/TM: 03/07/2019 3:57 pmSigned by: MD Hampton Arthur LSigned (Electronic Signature): 03/07/2019 3:58 pmCT Neck Soft Tissue w/o Contrast 2019-03-07 15:51:26Patient: JOSE NINA Date/Time03/07/2019 15:34 CDTReason for ExamAbscessReportCT SOFT TISSUE NECK WITHOUT IV CONTRAST AND WITH MULTIPLANAR RE FORMATS:CLINICAL HISTORY: Right facial edema. Known dialysis patient.COMPARISON: None.Radiation doselowering techniques were used according to ALARA principle.Serial images were obtained through the neck without IV contrast and reconstructed in coronal and in sagittal planes. 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 Right facial subcutaneous edema is noted. No focal abnormal fluid collections are identified. There is no focal mass. The submandibular glands, and parotid glands are symmetric.No focal soft tissue masses are identified. No bulky adenopathy is identified on this noncontrast CTneck. Small lymph nodes are noted which are within normal limits by CT criteria. Again noted findings previous described of left maxillary sinusitis. Bilateral mastoid effusions are identified.IMPRESSION:1. Right facial subcutaneous edema. No focal abscess is identified. Final Dictated by: MD Hampton Arthur LDictated DT/TM: 03/07/2019 3:48 pmSigned by: MD Hampton Arthur LSigned (Electronic Signature): 03/07/2019 3:51 pmCT Maxillofacial w/o [id number] 15:47:06 Patient: JOSE NINA Date/Time03/07/2019 15:27 CDTReason for ExamSwellingReportCT MAXILLOFACIAL WITHOUT CONTRAST: MULTIPLANAR REFORMATSCLINICAL HISTORY: Right facial swelling and neck swelling. Known dialysis patient.Radiation dose lowering techniques were used according to ALARA principle.COMPARISON: None.Serial images were obtained through the facial bones and reconstructed in coronal and in sagittal planes. Mucous retention cysts are seen within the left maxillary base the largest measuring 1.7 cm in diameter with minimal mucosal thickening within the right maxillary base. There is minimal mucosal thickening within the sphenoid sinus with partial opacification of left ethmoid air cells. The frontal sinuses are clear. There is mild subcutaneous edema within the right side of the face. No focal abscess and no focal abnormal fluid collections are identified. The inferolateral rims are intact. Zygomatic arches are intact. No facial fractures are identified. Nasal bones appear unremarkable. There is a small periapical lucency at the tip of the left central incisor suspect for a small periapical abscess. Lucency is also seen at the tipof a right lateral upper incisor also suspect for small periapical abscess. 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 There are bilateral mastoid effusions.IMPRESSION:1. Mucousretention cysts left maxillary base with mild mucosal thickening within the right maxillary antrum, sphenoid sinus, and within the left ethmoid sinus.2. Bilateral mastoid effusions.3. No focal abscess or abnormal fluid collections with right facial subcutaneous edema.4. Periapical lucencies as described above suspect for periapical abscesses. Final Dictated by: MD Hampton Arthur LDictated DT/TM: 03/07/2019 3:39 pmSigned by: MD Hampton Arthur LSigned (Electronic Signature): 03/07/2019 3:47 pm Comprehensive Metabolic [id number] 15:44:20 Test Item Value Reference Range Interpretation Comments Sodium Level (test code = 141 mmol/L 136-145 Sodium Level) Potassium Level (test code = 3.3 mmol/L 3.5-5.1 L Potassium Level) Chloride Level (test code = 104 mmol/L 98-107 Chloride Level) CO2 (test code = CO2) 34 mmol/L 21-32 H Anion Gap (test code = Anion 3 mmol/L 7-16 L Gap) BUN (test code = BUN) 12 mg/dL 7-18 Creatinine Level (test code = 2.5 mg/dL 0.7-1.3 H Creatinine Level) Glucose Level (test code = 81 mg/dL 74-106 Glucose Level) Calcium Level (test code = 8.6 mg/dL 8.5-10.1 Calcium Level) Alk Phos (test code = Alk Phos) 93 IntlUnit/L 45-122 Bilirubin Total (test code = 0.4 mg/dL 0.2-1.0 Bilirubin Total) Albumin Level (test code = 2.9 g/dL 3.4-5.0 L Albumin Level) Protein Total (test code = 5.9 g/dL 6.4-8.2 L Protein Total) ALT (test code = ALT) 9 IntlUnit/L 12-78 L AST (test code = AST) 10 IntlUnit/L 10-34 Comprehensive Metabolic [id number] 15:44:20 Test Item Value Reference Range Interpretation Comments Sodium Level (test code = 141 mmol/L 136-145 Sodium Level) Potassium Level (test code 3.3 mmol/L 3.5-5.1 L = Potassium Level) Chloride Level (test code = 104 mmol/L 98-107 Chloride Level) CO2 (test code = CO2) 34 mmol/L 21-32 H Anion Gap (test code = 3 mmol/L 7-16 L Anion Gap) BUN (test code = BUN) 12 mg/dL 7-18 Creatinine Level (test code 2.5 mg/dL 0.7-1.3 H = Creatinine Level) Glucose Level (test code = 81 mg/dL 74-106 Glucose Level) Calcium Level (test code = 8.6 mg/dL 8.5-10.1 Calcium Level) Alk Phos (test code = Alk 93 IntlUnit/L 45-122 Phos) Bilirubin Total (test code 0.4 mg/dL 0.2-1.0 = Bilirubin Total) Albumin Level (test code = 2.9 g/dL 3.4-5.0 L Albumin Level) Protein Total (test code = 5.9 g/dL 6.4-8.2 L Protein Total) ALT (test code = ALT) 9 IntlUnit/L 12-78 L AST (test code = AST) 10 IntlUnit/L 10-34 eGFR AA (test code = eGFR 31 mL/min/1.73 m2 N AA) Comprehensive Metabolic [id number] 15:44:20 Test Item Value Reference Range Interpretation Comments Sodium Level (test code = 141 mmol/L 136-145 Sodium Level) Potassium Level (test code 3.3 mmol/L 3.5-5.1 L = Potassium Level) Chloride Level (test code = 104 mmol/L 98-107 Chloride Level) CO2 (test code = CO2) 34 mmol/L 21-32 H Anion Gap (test code = 3 mmol/L 7-16 L Anion Gap) BUN (test code = BUN) 12 mg/dL 7-18 Creatinine Level (test code 2.5 mg/dL 0.7-1.3 H = Creatinine Level) Glucose Level (test code = 81 mg/dL 74-106 Glucose Level) Calcium Level (test code = 8.6 mg/dL 8.5-10.1 Calcium Level) Alk Phos (test code = Alk 93 IntlUnit/L 45-122 Phos) Bilirubin Total (test code 0.4 mg/dL 0.2-1.0 = Bilirubin Total) Albumin Level (test code = 2.9 g/dL 3.4-5.0 L Albumin Level) Protein Total (test code = 5.9 g/dL 6.4-8.2 L Protein Total) ALT (test code = ALT) 9 IntlUnit/L 12-78 L AST (test code = AST) 10 IntlUnit/L 10-34 eGFR AA (test code = eGFR 31 mL/min/1.73 m2 N AA) eGFR Non-AA (test code = 26 mL/min/1.73 m2 N eGFR Non-AA) Complete Blood Count with [id number] 15:18:39 Test Item Value Reference Range Interpretation Comments WBC (test code = WBC) 5.0 x10 4.8-10.8 RBC (test code = RBC) 2.28 x10 4.60-6.20 L Hgb (test code = Hgb) 7.1 g/dL 14.0-18.0 Critic al results called to MICHAEL WONG at 03/07/2019 15:18 :30 CDT by KH. Sallie reynoso back and verified? Y MCV (test code = MCV) 90.4 fL 80.0-95.0 Hct (test code = Hct) 20.6 % 38.0-52.0 Critic al results called to MICHAEL WONG at 03/07/2019 15:18 :30 CDT by KH. Sallie lugo and verified? Y RDW (test code = RDW) 19.0 % 11.5-14.5 H MCHC (test code = MCHC) 34.3 g/dL 31.0-36.0 MCH (test code = MCH) 31.1 pg 26.0-32.0 Platelets (test code = 115 x10 140-440 L Platelets) MPV (test code = MPV) 7.6 fL 7.5-11.2 Slide Review (test code Auto N Resu lt created by = Slide Review) GL_SET_SLIDE _REVIEW_A UTO Automated [id number] 15:18:39 Test Item Value Reference Range Interpretation Comments Neutro Auto (test code = Neutro Auto) 69.3 % N Lymph Auto (test code = Lymph Auto) 18.1 % N Winn Auto (test code = Winn Auto) 8.9 % N Eos, Auto (test code = Eos, Auto) 2.9 % N Basophil Auto (test code = Basophil 0.8 % N Auto) Neutro Absolute (test code = Neutro 3.5 x10 2.7-7.3 Absolute) Lymph Absolute (test code = Lymph 0.9 x10 0.8-3.5 Absolute) Winn Absolute (test code = Winn 0.4 x10 0.3-0.9 Absolute) Eos Absolute (test code = Eos 0.1 x10 0.0-0.3 Absolute) Baso Absolute (test code = Baso 0.0 x10 0.0-0.1 Absolute) BLOOD [id number] 06:53:00 Test Item Value Reference Range Interpretation Comments Report Text (test [facility] 2019-01-26 1635 code = Report Text) Report Text7 (test BLOOD CULTURES HELD FOR code = Report 5 DAYS BEFORE FINAL Text7) Report Text8 (test code = Report Text8) Report Text9 (test [employer] OF code = Report MICROBIOLOGY SUGGESTS THAT Text9) Report Text10 (test MOST CASES OF BACTEREMIA code = Report ARE DETECTED BY USING Text10) Report Text11 (test THREE SETS OF SEPARATELY code = Report COLLECTED BLOOD CULTURES. Text11) Report Text12 (test [facility] 2019-01-26 163 code = Report Text12) Report Text13 (test CONVERSELY, A SINGLE BLOOD code = Report CULTURE MAY MISS Text13) Report Text14 (test INTERMITTENTLY OCCURRING code = Report BACTEREMIA AND MAKE Text14) Report Text15 (test IT DIFFICULT TO INTERPRET code = Report THE CLINICAL Text15) Report Text16 (test SIGNIFICANCE OF CERTAIN code = Report ISOLATED ORGANISMS. Text16) Report Text17 (test code = Report Text17) Report Text18 (test [facility] 2019-01-26 163 code = Report Text18) Report Text19 (test COLLECTION SITE code = Report UNSPECIFIED Text19) Report Text20 (test 2019-01-27 618 code = Report Text20) Report Text21 (test NO GROWTH WITHIN 1 DAY code = Report Text21) Report Text22 (test PRELIMINARY REPORT code = Report Text22) Report Text23 (test code = Report Text23) Report Text24 (test JM 2019-01-28 646 code = Report Text24) Report Text25 (test NO GROWTH WITHIN 2 DAYS code = Report Text25) Report Text26 (test PRELIMINARY REPORT code = Report Text26) Report Text27 (test code = Report Text27) Report Text28 (test CWJ 2019-01-31 653 code = Report Text28) Report Text29 (test NO GROWTH WITHIN 5 DAYS code = Report Text29) Report Text30 (test FINAL REPORT code = Report Text30) BLOOD [id number] 06:53:00 Test Item Value Reference Range Interpretation Comments Report Text (test NICOLE 2019-01-26 1635 code = Report Text) Report Text7 (test BLOOD CULTURES HELD FOR code = Report 5 DAYS BEFORE FINAL Text7) Report Text8 (test code = Report Text8) Report Text9 (test [employer] OF code = Report MICROBIOLOGY SUGGESTS THAT Text9) Report Text10 (test MOST CASES OF BACTEREMIA code = Report ARE DETECTED BY USING Text10) Report Text11 (test THREE SETS OF SEPARATELY code = Report COLLECTED BLOOD CULTURES. Text11) Report Text12 (test NICOLE 2019-01-26 1636 code = Report Text12) Report Text13 (test CONVERSELY, A SINGLE BLOOD code = Report CULTURE MAY MISS Text13) Report Text14 (test INTERMITTENTLY OCCURRING code = Report BACTEREMIA AND MAKE Text14) Report Text15 (test IT DIFFICULT TO INTERPRET code = Report THE CLINICAL Text15) Report Text16 (test SIGNIFICANCE OF CERTAIN code = Report ISOLATED ORGANISMS. Text16) Report Text17 (test code = Report Text17) Report Text18 (test NICOLE 2019-01-26 1637 code = Report Text18) Report Text19 (test COLLECTION SITE code = Report UNSPECIFIED Text19) Report Text20 (test 2019-01-27 618 code = Report Text20) Report Text21 (test NO GROWTH WITHIN 1 DAY code = Report Text21) Report Text22 (test PRELIMINARY REPORT code = Report Text22) Report Text23 (test code = Report Text23) Report Text24 (test 2019-01-28 646 code = Report Text24) Report Text25 (test NO GROWTH WITHIN 2 DAYS code = Report Text25) Report Text26 (test PRELIMINARY REPORT code = Report Text26) Report Text27 (test code = Report Text27) Report Text28 (test CWJ 2019-01-31 653 code = Report Text28) Report Text29 (test NO GROWTH WITHIN 5 DAYS code = Report Text29) Report Text30 (test FINAL REPORT code = Report Text30) WHOLE BLOOD [id number] 11:25:00 Test Item Value Reference Range Interpretation Comments WHOLE BLOOD GLUCOSE 89 MG/DL 70-99 Fastin g glucose (test code = POC GLU) normal <100 MG/DL- [employer] recommendation* * WHOLE BLOOD [id number] 07:40:00 Test Item Value Reference Range Interpretation Comments WHOLE BLOOD GLUCOSE 75 MG/DL 70-99 Fastin g glucose (test code = POC GLU) normal <100 MG/DL- [employer] recommendation* * WHOLE BLOOD [id number] 07:40:00 Test Item Value Reference Range Interpretation Comments WHOLE BLOOD GLUCOSE 90 MG/DL 70-99 Fastin g glucose (test code = POC GLU) normal <100 MG/DL- [employer] recommendation* * WHOLE BLOOD [id number] 17:55:00 Test Item Value Reference Range Interpretation Comments WHOLE BLOOD GLUCOSE 87 MG/DL 70-99 Fastin g glucose (test code = POC GLU) normal <100 MG/DL- [employer] recommendation* * WHOLE BLOOD [id number] 16:15:00 Test Item Value Reference Range Interpretation Comments WHOLE BLOOD GLUCOSE 47 MG/DL 70-99 L Fastin g glucose (test code = POC GLU) normal <100 MG/DL- [employer] recommendation* * WHOLE BLOOD [id number] 16:00:00 Test Item Value Reference Range Interpretation Comments WHOLE BLOOD GLUCOSE 95 MG/DL 70-99 Fastin g glucose (test code = POC GLU) normal <100 MG/DL- [employer] recommendation* * HEPATITIS B SURF [id number] 09:46:00 Test Item Value Reference Range Interpretation Comments HEPBSAG (test code = NEGATIVE NEGATIVE Hepatit is B Surface HEPBSAG) Antigen is for screening purpo se only. All reactives w ill be sent to referen ce lab for confirmatio n. WHOLE BLOOD [id number] 07:45:00 Test Item Value Reference Range Interpretation Comments WHOLE BLOOD GLUCOSE 84 MG/DL 70-99 Fastin g glucose (test code = POC GLU) normal <100 MG/DL- [employer] recommendation* * BMP, BASIC METABOLIC [id number] 06:42:00 Test Item Value Reference Range Interpretation Comments SODIUM (test code = 135 MMOL/L 137-145 L NA) K+ (test code = 3.6 MMOL/L 3.5-5.1 PLEASE NOTE NEW KSERUM) REFERENCE RANGE (S) IN EFFECT EFFECTIVE 010 - NEW ANALYZER (V ITROS 5600) CHLORIDE (test code 95 MMOL/L 98-107 L = CL) CO2 (test code = 35 MMOL/L 22-30 H CO2) BUN (test code = 40 MG/DL 9-20 H BUN) CREA (test code = 5.6 MG/DL 0.8-1.5 H CREA) GLUCOSE (test code 74 MG/DL 70-99 Fasting glucose = GLUCOSE) normal <100 MG/ DL- [employer] recommendation* * CALCIUM (test code 8.3 MG/DL 8.4-10.2 L = CABLOOD) GFR (test code = 13 A GFR of >9 0 GFR) mL/min/1.73m2 mL/min/1.73m2 is considered norm al. [id number] 06:42:00 Test Item Value Reference Range Interpretation Comments MG (test code = MG) 2.1 mg/dL 1.6-2.3 [id number] 06:42:00 Test Item Value Reference Range Interpretation Comments PHOSPHOR (test code = PHOSPHOR) 3.1 MG/DL 2.5-4.5 [id number] 06:06:00 Test Item Value Reference Range Interpretation Comments WBC (test code = 5.4 K/UL 3.5-10.9 WBC) RBC (test code = 3.13 M/UL 4.3-5.7 L RBC) HGB (test code = 9.3 G/DL 13.0-17.9 L HGB) HCT (test code = 29.9 % 38-52 L HCT) MCV (test code = 95.5 FL 80-98 MCV) MCH (test code = 29.7 PG 28-32 MCH) MCHC (test code = 31.1 G/DL 32.5-36.5 L MCHC) RDW (test code = 15.3 % 11.5-14.5 H RDW) PLT (test code = 154 K/UL 150-450 PLT) MPV (test code = 9.2 FL 7.4-10.4 MPV) MANDIFF (test code = NO MANDIFF) SCAN (test code = NO SCAN) NEUT% (test code = 66.7 % 40-75 NEUT%) LYMPH% (test code = 21.4 % 24-44 L LYMPH%) MONO% (test code = 9.4 % 0-13 MONO%) EOS% (test code = 1.7 % 0-4 EOS%) BASO % (test code = 0.6 % 0-2 BASO%) IG (test code = IG) 0 % 0-1 IG% (test code = 0.2 % 0-1 IG% = Metam yelocytes, IG%) Myelocytes, and Promyelocytes. (Immature neutr ophils not including " bands".) > 3% IG indic ates risk of sepsis NRBC% (test code = 0 /100 WBC NRBC%) ABS NEUT (test code 3.6 K/UL 1.2-7.2 = NEUT) WHOLE BLOOD [id number] 22:05:00 Test Item Value Reference Range Interpretation Comments WHOLE BLOOD GLUCOSE 98 MG/DL 70-99 Fastin g glucose (test code = POC GLU) normal <100 MG/DL- [employer] recommendation* * WHOLE BLOOD [id number] 20:35:00 Test Item Value Reference Range Interpretation Comments WHOLE BLOOD GLUCOSE 63 MG/DL 70-99 L Fastin g glucose (test code = POC GLU) normal <100 MG/DL- [employer] recommendation* * [id number] 16:36:00 Test Item Value Reference Range Interpretation Comments WBC (test code = 7.3 K/UL 3.5-10.9 WBC) RBC (test code = 3.21 M/UL 4.3-5.7 L RBC) HGB (test code = 9.4 G/DL 13.0-17.9 L HGB) HCT (test code = 30.3 % 38-52 L HCT) MCV (test code = 94.4 FL 80-98 MCV) MCH (test code = 29.3 PG 28-32 MCH) MCHC (test code = 31.0 G/DL 32.5-36.5 L MCHC) RDW (test code = 15.3 % 11.5-14.5 H RDW) PLT (test code = 180 K/UL 150-450 PLT) MPV (test code = 9.6 FL 7.4-10.4 MPV) MANDIFF (test code = NO MANDIFF) SCAN (test code = NO SCAN) NEUT% (test code = 74.8 % 40-75 NEUT%) LYMPH% (test code = 14.8 % 24-44 L LYMPH%) MONO% (test code = 8.3 % 0-13 MONO%) EOS% (test code = 1.0 % 0-4 EOS%) BASO % (test code = 0.7 % 0-2 BASO%) IG (test code = IG) 0 % 0-1 IG% (test code = 0.4 % 0-1 IG% = Metam yelocytes, IG%) Myelocytes, and Promyelocytes. (Immature neutr ophils not including " bands".) > 3% IG indic ates risk of sepsis NRBC% (test code = 0 /100 WBC NRBC%) ABS NEUT (test code 5.5 K/UL 1.2-7.2 = NEUT) ISTAT [id number] [id number] 16:15:00 Test Item Value Reference Range Interpretation Comments ISTATNA (test code = 136 MMOL/L 137-145 L ISTATNA) ISTATK (test code = 3.7 MMOL/L 3.6-5.0 ISTATK) ISTATCL (test code = 93 MMOL/L 98-107 L ISTATCL) ISTIONCA (test code = 1.13 MMOL/L 1.12-1.32 ISTIONCA) ISTCO2 (test code = 30 MMOL/L 22-30 ISTCO2) ISTATGLU (test code = 74 MG/DL 65-110 ISTATGLU) ISTATBUN (test code = 32.0 MG/DL 7.0-20.0 H ISTATBUN) ISTCREA (test code = 5.6 MG/DL 0.7-1.5 H ISTCREA) ISTATHCT (test code = 30 %PCV 37.0-52.0 L ISTATHCT) ISTATHGB (test code = 10.2 G/DL 12.0-18.0 L Notifi ed Nurse/MD of ISTATHGB) results outside of Reference Range s ISTANGAP (test code = 17 MMOL/L Notifi ed Nurse/MD of ISTANGAP) results outside of Reference Range s US VENO EXT. [id number] 15:10:[address] [address]VAXLVEXCUK IMAGING REPORTPatient Name: Celsa NINA of Service: [id number]: 68 Sex: M Order #: [id number] [facility] 1950 [facility] Number: [id number] Record Number: [id number] Hospital Number: [id number] Physician: Yana LARSON Physician: Artemio LARSON leg deep venous Doppler studyThis patient presents with right leg swelling.Images were evaluated using patel scale, duplex and color Doppler images andspectral analysis..There is nonocclusive deep vein thrombus throughout the superficial femoralvein extending into the common femoral vein. These vessels do notcompletely compress.Electronically Signed By: Wilmar Luque M.D., 01/26/2019 3:08 PMLegally authenticated by ANASTASIA 2019-01-26 15:08:40PATHOLOGY [id number] 15:53:00TISSUE CONSULTATION REPORTBABAYLOR SCOTT AND WHITE [facility] PLANODEPARTMENT OF PATHOLOGYP.O[address], [place] [address] [facility]ITALVRE MUKESH PAEZ M.D.ROBERT L. HUTTON, M.D.CHARLES E. BURNS, M.D. ____Patient: TOSHA NINA 1950 68 [facility] [id number] Ordering Physician: FREDI JANG Rec.: 12/24/2018Date of Proc.: 12/24/2018Lab No.: [id number] PRE-OPERATIVE DIAGNOSIS:Epigastric painFINAL ANATOMIC DIAGNOSIS:STOMACH, RANDOM BIOPSIES:MGNV-TQ-HOMJOLTA CHRONIC GASTRITIS;NEGATIVE FOR GOBLET CELL METAPLASIA;NEGATIVE FOR HELICOBACTER PYLORI ORGANISMSMICROSCOPIC EXAMINATION:The random gastric biopsies are involved by a mild-to- moderatechronic gastritis. Increased numbers of plasma cells are presentthroughout the lamina propria. Eosinophils are not significantlyincreased. No acute inflammation is present. No goblet cellme taplasia or helicobacter pylori organisms are identified,confirmed by Alcian blue/PAS and Peter stains. There is noevidence of malignancy.GROSS APPEARANCE:The specimen is labeled "random gastric biopsy." The two pinkbiopsies are 0.3 x 0.2 x 0.2 cm in aggregate, submitted in a singlecassette.PATHOLOGIST: Abbe Schilling Electronically Signed: 12/25/2018Glucose [Mass/volume] in [id number] 12:40:00 Test Item Value Reference Range Interpretation Comments whole blood glucose (test code = 64 mg/dL 70-99 L whole blood glucose) [facility] [[facility]/volume] in Blood 2018-12-24 12:40:00 Test Item Value Reference Range Interpretation Comments whole blood glucose (test code = 96 mg/dL 70-99 whole blood glucose) [facility]astroenterology AssociatesWHOLE BLOOD [id number] 12:40:00 Test Item Value Reference Range Interpretation Comments WHOLE BLOOD GLUCOSE 96 MG/DL 70-99 Fastin g glucose (test code = POC GLU) normal <100 MG/DL- [employer] recommendation* * WHOLE BLOOD [id number] 12:40:00 Test Item Value Reference Range Interpretation Comments WHOLE BLOOD GLUCOSE 64 MG/DL 70-99 L Fastin g glucose (test code = POC GLU) normal <100 MG/DL- [employer] recommendation* * EN GASTRIC [id number] 15:03:[address] [id number] IMAGING REPORTPatient Name: Celsa NINA of Service: [id number]: 68 Sex: M Order #: [id number] Room: OPODOB: 1950 X-Ray Number: [id number] Record Number: [id number] Hospital Number: [id number] Physician: Elisa GODOY Physician: AZIZA GODOYuclear medicine gastric emptying studyDosage: 0.74 mCi Technetium 99 M sulfur colloidHistory: Abdominal pain, nausea, vomiting, reflux, belchingFindings:Dynamic imaging was performed centered over the stomach.Time to peak equals 5 minutes minutes.T 1/2 equals 72 minutes.Impression:Normal gastric emptying study with T1 half equal to72 minutes(normal value<90 min) .Electronically Signed By: Cristóbal Flower MD, 12/03/2018 3:00 PMLegally authenticated by LEVON GARCIA (RAD) 2018-12-03 15:00:49NM HIDA SCAN W/O [id number] 12:41:[address] [id number] IMAGING REPORTPatient Name: Celsa NINA of Service: [id number]: 68 Sex: M Order #: [id number] Room: OPEDOB: 1950 X-Ray Number: [id number] Record Number: [id number] Hospital Number: [id number] Physician: Elisa GODOY Physician: MAYE GODOY HIDA SCAN W/O EF 11/28/201811:45 AMHistory: Abd PainComparisons: None Available.Nuclear medicine hepatobiliary imagingDosage:6.5 mCi technetium 99m CholetecFindings:Dynamic imaging was performed centered over the right upper quadrant.There is prompt flow of radiotracer to the liver and prompt uptake ofradiotracer by the liver. There is prompt excretion of radiotracer into thesmall bowel. There is no excretion of radiotracerinto the gallbladder.This is consistent with history of cholecystectomy.Impression:No radiotracer excretion into the gallbladder, consistent with history ofcholecystectomy.Electronically Signed By: Wiley Shaw M.D., 11/28/2018 12:39 PMLegally authenticated by SALONI OSUNA 2018-11-28 12:39:[id number] 12:55:00 Test Item Value Reference Range Interpretation Comments SODIUM (test code = 135 MMOL/L 137-145 L NA) K+ (test code = 3.7 MMOL/L 3.5-5.1 PLEASE NOTE NEW KSERUM) REFERENCE RANGE (S) IN EFFECT EFFECTIVE 010 - NEW ANALYZER (V ITROS 5600) CHLORIDE (test code 95 MMOL/L 98-107 L = CL) CO2 (test code = 33 MMOL/L 22-30 H CO2) BUN (test code = 26 MG/DL 9-20 H BUN) CREA (test code = 4.9 MG/DL 0.8-1.5 H CREA) GLUCOSE (test code 98 MG/DL 70-99 Fasting glucose = GLUCOSE) normal <100 MG/ DL- [employer] recommendation* * CALCIUM (test code 9.9 MG/DL 8.4-10.2 = CABLOOD) TOTPROT (test code 6.0 G/DL 6.3-8.2 L = TOTPROT) ALBUMIN (test code 3.4 G/DL 3.5-5.0 L = ALBSERUM) BILITOT (test code 0.5 MG/DL 0.2-1.3 = BILITOT) AST (test code = 21 U/L 15-46 AST) PHOSALK (test code 242 U/L 38-126 H = PHOSALK) ALT (test code = 18 U/L 13-69 ALT) GFR (test code = 15 A GFR of >9 0 GFR) mL/min/1.73m2 mL/min/1.73m2 is considered norm al. IRON/ BINDING CAPACITY/ [id number] 12:55:00 Test Item Value Reference Range Interpretation Comments IRON % SATURATION (test 37 % 20-45 code = %SAT) IRON (test code = FE) 52 UG/DL 49-181 If Iro n is <6 the % saturation is incalculable. IBC (test code = IBC) 141 261-462 L [id number] 12:55:00 Test Item Value Reference Range Interpretation Comments FERRITIN (test code = FERR) 904 NG/ML 18-464 H [id number] 12:05:00 Test Item Value Reference Range Interpretation Comments WBC (test code = 5.89 K/UL 3.5-10.9 WBC) RBC (test code = 3.53 M/UL 4.3-5.7 L RBC) HGB (test code = 10.6 G/DL 13.0-17.9 L HGB) HCT (test code = 34.9 % 38-52 L HCT) MCV (test code = 98.9 FL 80-98 H MCV) MCH (test code = 30.0 PG 28-32 MCH) MCHC (test code = 30.4 G/DL 32.5-36.5 L MCHC) RDW (test code = 16.8 % 11.5-14.5 H RDW) PLT (test code = 186 K/UL 150-450 PLT) MPV (test code = 9.6 FL 7.4-10.4 MPV) MANDIFF (test code = NO MANDIFF) SCAN (test code = NO SCAN) NEUT% (test code = 67.7 % 40-75 NEUT%) LYMPH% (test code = 20.2 % 24-44 L LYMPH%) MONO% (test code = 7.3 % 0-13 MONO%) EOS% (test code = 3.6 % 0-4 EOS%) BASO % (test code = 1.0 % 0-2 BASO%) IG% (test code = 0.2 % 0-1 IG% = Metam yelocytes, IG%) Myelocytes, and Promyelocytes. (Immature neutrophils not including "band s".) > 3% IG indicates risk of sepsis [id number] 21:45:00 Test Item Value Reference Range Interpretation Comments GLUCOSE (test code = URGLU) NEGATIVE MG/DL NEG-100 BILIRUBN (test code = URBILI) NEGATIVE NEGATIVE KETONE (test code = URKET) NEGATIVE MG/DL NEGATIVE BLOOD (test code = URBLD) NEGATIVE UR PH (test code = URPH) 8.0 5.0-7.5 H PROTEIN (test code = URPRO) 100 MG/DL NEGATIVE NITRITES (test code = URNIT) NEGATIVE NEGATIVE UROBILINGEN (test code = 0.2 EU/DL 0.2-1.0 URURO) LEUKOCYT (test code = URLEU) TRACE NEGATIVE UA COLOR (test code = UA YELLOW YELLOW COLOR) CLARITY (test code = CLARITY) CLEAR CLEAR SP GRAV (test code = URSPGRAV) 1.011 1.000-1.025 UAMICRO (test code = UAMICRO) YES WBC (test code = URWBC) 7 /HPF 0-5 H RBC (test code = URRBC) 2 /HPF 0-2 CASTS (test code = CAST) 3 /LPF 0-3 UR EPI (test code = EPI) 94 /LPF BACTERIA (test code = NEGATIVE NONE BACTERIA) CT ABDOMEN/PELVIS [id number] 20:44:[address] [id number] IMAGING REPORTPatient Name: Celsa NINA of Service: [id number]: 68 Sex: M Order #: [id number] Room: ERSDOB: 1950 X-Ray Number: [id number] Record Number: [id number] Hospital Number: [id number] Physician: IAN RODRIGUEZOrdering Physician: Gibson LARSON CT abdomen and pelvis without contrast 09/24/2018History: Abdominal pain, constipation, end-stage renal diseaseComparison: X-rayof 09/15/[address] of 01/17/2014This CT exam was performed using one or more of the following dosereduction techniques: Automated exposure control, adjustment of the mAand/or kV according to patient size, or use of iterative reconstructiontechnique.Images are limited due to lack of contrast.Heart sizeremains mildly prominent enlarged. Extensive coronary arterycalcifications and/or stents are identified. There is at least moderatesize hiatal hernia. Linear and patchy densities in the lung bases may b edue to atelectasis or pneumonia, right greater than left. There is minimalpleural fluid at the right lung base posteriorly.Severe compression deformity is noted at T12 with moderate compressiondeformity at T11. There are numerous foci of lucency and sclerosisscattered throughout the entire visualized spine and pelvic bones. Findingscould be due to marked renal osteodystrophy changes but metastatic diseaseis not excluded and clinical correlation is required.The gallbladder has been removed. Slight increased density of the liverraises question of hemachromatosis.Other intra-abdominal organs show no a cute process. Kidneys remain atrophicwith multiple cysts in and off of both of these structures.No bowel obstruction. Some stool is seen throughout the colon. Oralcontrast has progressed to the rectum level. No appendicitis, free air,free fluid or adenopathy.An IVC filter is in place.Urinary bladder shows mild circumferential wall thickening which may be dueto incomplete distention. Cystitis is thought less likely at this point.Prostate size is within normal limits.IMPRESSION:No bowel obstruction.Other findings as discussed. Again, clinical correlation is recommendedregarding the bony changes.Electronically Signed By: Rao Jimeenz M.D., 09/24/2018 8:41 PMLegally authenticated by DEB MCCONNELL [id number] 18:40:00 Test Item Value Reference Range Interpretation Comments LIPASE (test code = LIPA) 43 U/L 23-300 LIVER [id number] 18:40:00 Test Item Value Reference Range Interpretation Comments TOTPROT (test code = TOTPROT) 6.3 G/DL 6.3-8.2 ALBUMIN (test code = ALBSERUM) 3.6 G/DL 3.5-5.0 BILITOT (test code = BILITOT) 0.6 MG/DL 0.2-1.3 BILIDIR (test code = BILIDIR) 0.5 MG/DL 0.0-0.4 H AST (test code = AST) 18 U/L 15-46 PHOSALK (test code = PHOSALK) 469 U/L 38-126 H ALT (test code = ALT) 22 U/L 13-69 [id number] 18:20:00 Test Item Value Reference Range Interpretation Comments WBC (test code = 5.5 K/UL 3.5-10.9 WBC) RBC (test code = 3.36 M/UL 4.3-5.7 L RBC) HGB (test code = 10.3 G/DL 13.0-17.9 L HGB) HCT (test code = 32.2 % 38-52 L HCT) MCV (test code = 95.8 FL 80-98 MCV) MCH (test code = 30.7 PG 28-32 MCH) MCHC (test code = 32.0 G/DL 32.5-36.5 L MCHC) RDW (test code = 15.3 % 11.5-14.5 H RDW) PLT (test code = 159 K/UL 150-450 PLT) MPV (test code = 9.7 FL 7.4-10.4 MPV) MANDIFF (test code = NO MANDIFF) SCAN (test code = NO SCAN) NEUT% (test code = 62.4 % 40-75 NEUT%) LYMPH% (test code = 26.6 % 24-44 LYMPH%) MONO% (test code = 7.3 % 0-13 MONO%) EOS% (test code = 2.4 % 0-4 EOS%) BASO % (test code = 0.9 % 0-2 BASO%) IG (test code = IG) 0 % 0-1 IG% (test code = 0.4 % 0-1 IG% = Metam yelocytes, IG%) Myelocytes, and Promyelocytes. (Immature neutr ophils not including " bands".) > 3% IG indic ates risk of sepsis NRBC% (test code = 0 /100 WBC NRBC%) ABS NEUT (test code 3.4 K/UL 1.2-7.2 = NEUT) ISTAT [id number] [id number] 17:45:00 Test Item Value Reference Range Interpretation Comments ISTATNA (test code = ISTATNA) 138 MMOL/L 137-145 ISTATK (test code = ISTATK) 3.2 MMOL/L 3.6-5.0 L ISTATCL (test code = ISTATCL) 94 MMOL/L 98-107 L ISTIONCA (test code = ISTIONCA) 1.10 MMOL/L 1.12-1.32 L ISTCO2 (test code = ISTCO2) 29 MMOL/L 22-30 ISTATGLU (test code = ISTATGLU) 74 MG/DL 65-110 ISTATBUN (test code = ISTATBUN) 27.0 MG/DL 7.0-20.0 H ISTCREA (test code = ISTCREA) 5.6 MG/DL 0.7-1.5 H ISTATHCT (test code = ISTATHCT) 30 %PCV 37.0-52.0 L ISTATHGB (test code = ISTATHGB) 10.2 G/DL 12.0-18.0 L ISTANGAP (test code = ISTANGAP) 20 MMOL/L [id number] 16:32:00 Test Item Value Reference Range Interpretation Comments FERRITIN (test code = FERR) 1550 NG/ML 18-464 H [id number] 15:38:00 Test Item Value Reference Range Interpretation Comments SODIUM (test code = 138 MMOL/L 137-145 NA) K+ (test code = 4.3 MMOL/L 3.5-5.1 PLEASE NOTE NEW KSERUM) REFERENCE RANGE (S) IN EFFECT EFFECTIVE 010 - NEW ANALYZER (V ITROS 5600) CHLORIDE (test code 96 MMOL/L 98-107 L = CL) CO2 (test code = 31 MMOL/L 22-30 H CO2) BUN (test code = 82 MG/DL 9-20 H BUN) CREA (test code = 7.2 MG/DL 0.8-1.5 H CREA) GLUCOSE (test code 87 MG/DL 70-99 Fasting glucose = GLUCOSE) normal <100 MG/ DL- [employer] recommendation* * CALCIUM (test code 8.8 MG/DL 8.4-10.2 = CABLOOD) TOTPROT (test code 6.3 G/DL 6.3-8.2 = TOTPROT) ALBUMIN (test code 3.6 G/DL 3.5-5.0 = ALBSERUM) BILITOT (test code 0.3 MG/DL 0.2-1.3 = BILITOT) AST (test code = 19 U/L 15-46 AST) PHOSALK (test code 533 U/L 38-126 H = PHOSALK) ALT (test code = 29 U/L 13-69 ALT) GFR (test code = 10 A GFR of >9 0 GFR) mL/min/1.73m2 mL/min/1.73m2 is considered norm al. [id number] 15:38:00 Test Item Value Reference Range Interpretation Comments FOLATE (test code = FOLATE) 14.6 ng/mL 2.76-20.0 IRON/ BINDING CAPACITY/ %[id number] 15:38:00 Test Item Value Reference Range Interpretation Comments IRON % SATURATION (test 40 % 20-45 code = %SAT) IRON (test code = FE) 74 UG/DL 49-181 If Iro n is <6 the % saturation is incalculable. IBC (test code = IBC) 185 261-462 L [id number] 13:26:00 Test Item Value Reference Range Interpretation Comments WBC (test code = 5.2 K/UL 3.5-10.9 WBC) RBC (test code = 3.14 M/UL 4.3-5.7 L RBC) HGB (test code = 10.4 G/DL 13.0-17.9 L HGB) HCT (test code = 31.4 % 38-52 L HCT) MCV (test code = 100.0 FL 80-98 H MCV) MCH (test code = 33.1 PG 28-32 H MCH) MCHC (test code = 33.1 G/DL 32.5-36.5 MCHC) RDW (test code = 14.1 % 11.5-14.5 RDW) PLT (test code = 129 K/UL 150-450 L PLT) MPV (test code = 10.4 FL 7.4-10.4 MPV) MANDIFF (test code = NO MANDIFF) SCAN (test code = NO SCAN) NEUT% (test code = 63.4 % 40-75 NEUT%) LYMPH% (test code = 25.0 % 24-44 LYMPH%) MONO% (test code = 6.9 % 0-13 MONO%) EOS% (test code = 3.5 % 0-4 EOS%) BASO % (test code = 0.8 % 0-2 BASO%) IG (test code = IG) 0 % 0-1 IG% (test code = 0.4 % 0-1 IG% = Metam yelocytes, IG%) Myelocytes, and Promyelocytes. (Immature neutr ophils not including " bands".) > 3% IG indic ates risk of sepsis NRBC% (test code = 0 /100 WBC NRBC%) ABS NEUT (test code 3.3 K/UL 1.2-7.2 = NEUT) [id number] 13:09:00 Test Item Value Reference Range Interpretation Comments FERRITIN (test code = FERR) 1620 NG/ML 18-464 H [id number] 12:56:00 Test Item Value Reference Range Interpretation Comments SODIUM (test code = 138 MMOL/L 137-145 NA) K+ (test code = 4.4 MMOL/L 3.5-5.1 PLEASE NOTE NEW KSERUM) REFERENCE RANGE (S) IN EFFECT EFFECTIVE 010 - NEW ANALYZER (V ITROS 5600) CHLORIDE (test code 96 MMOL/L 98-107 L = CL) CO2 (test code = 28 MMOL/L 22-30 CO2) BUN (test code = 78 MG/DL 9-20 H BUN) CREA (test code = 7.3 MG/DL 0.8-1.5 H CREA) GLUCOSE (test code 79 MG/DL 70-99 Fasting glucose = GLUCOSE) normal <100 MG/ DL- [employer] recommendation* * CALCIUM (test code 8.7 MG/DL 8.4-10.2 = CABLOOD) TOTPROT (test code 6.6 G/DL 6.3-8.2 = TOTPROT) ALBUMIN (test code 3.9 G/DL 3.5-5.0 = ALBSERUM) BILITOT (test code 0.3 MG/DL 0.2-1.3 = BILITOT) AST (test code = 17 U/L 15-46 AST) PHOSALK (test code 688 U/L 38-126 H = PHOSALK) ALT (test code = 22 U/L 13-69 ALT) GFR (test code = 10 A GFR of >9 0 GFR) mL/min/1.73m2 mL/min/1.73m2 is considered norm al. [id number] 12:55:00 Test Item Value Reference Range Interpretation Comments FOLATE (test code = FOLATE) 12.5 ng/mL 2.76-20.0 IRON/ BINDING CAPACITY/ %[id number] 12:55:00 Test Item Value Reference Range Interpretation Comments IRON % SATURATION (test 44 % 20-45 code = %SAT) IRON (test code = FE) 80 UG/DL 49-181 If Iro n is <6 the % saturation is incalculable. IBC (test code = IBC) 180 261-462 L [id number] 11:28:00 Test Item Value Reference Range Interpretation Comments WBC (test code = 7.1 K/UL 3.5-10.9 WBC) RBC (test code = 3.61 M/UL 4.3-5.7 L RBC) HGB (test code = 11.6 G/DL 13.0-17.9 L HGB) HCT (test code = 35.3 % 38-52 L HCT) MCV (test code = 97.8 FL 80-98 MCV) MCH (test code = 32.1 PG 28-32 H MCH) MCHC (test code = 32.9 G/DL 32.5-36.5 MCHC) RDW (test code = 14.7 % 11.5-14.5 H RDW) PLT (test code = 176 K/UL 150-450 PLT) MPV (test code = 10.0 FL 7.4-10.4 MPV) MANDIFF (test code = NO MANDIFF) SCAN (test code = NO SCAN) NEUT% (test code = 65.8 % 40-75 NEUT%) LYMPH% (test code = 22.1 % 24-44 L LYMPH%) MONO% (test code = 6.9 % 0-13 MONO%) EOS% (test code = 4.2 % 0-4 H EOS%) BASO % (test code = 0.7 % 0-2 BASO%) IG% (test code = 0.3 % 0-1 IG% = Metam yelocytes, IG%) Myelocytes, and Promyelocytes. (Immature neutr ophils not including " bands".) > 3% IG indic ates risk of sepsis NRBC% (test code = 0 /100 WBC NRBC%) ABS NEUT (test code 4.7 K/UL 1.2-7.2 = NEUT) [id number] 13:18:00 Test Item Value Reference Range Interpretation Comments FERRITIN (test code = FERR) 1650 NG/ML 18-464 H [id number] 13:00:00 Test Item Value Reference Range Interpretation Comments SODIUM (test code = 135 MMOL/L 137-145 L NA) K+ (test code = 4.2 MMOL/L 3.5-5.1 PLEASE NOTE NEW KSERUM) REFERENCE RANGE (S) IN EFFECT EFFECTIVE 010 - NEW ANALYZER (V ITROS 5600) CHLORIDE (test code 93 MMOL/L 98-107 L = CL) CO2 (test code = 29 MMOL/L 22-30 CO2) BUN (test code = 69 MG/DL 9-20 H BUN) CREA (test code = 7.1 MG/DL 0.8-1.5 H CREA) GLUCOSE (test code 69 MG/DL 70-99 L Fasting glucose = GLUCOSE) normal <100 MG/ DL- [employer] recommendation* * CALCIUM (test code 8.6 MG/DL 8.4-10.2 = CABLOOD) TOTPROT (test code 6.2 G/DL 6.3-8.2 L = TOTPROT) ALBUMIN (test code 3.5 G/DL 3.5-5.0 = ALBSERUM) BILITOT (test code 0.5 MG/DL 0.2-1.3 = BILITOT) AST (test code = 15 U/L 15-46 AST) PHOSALK (test code 806 U/L 38-126 H = PHOSALK) ALT (test code = 18 U/L 13-69 ALT) GFR (test code = 10 A GFR of >9 0 GFR) mL/min/1.73m2 mL/min/1.73m2 is considered norm al. IRON/ BINDING CAPACITY/ %[id number] 13:00:00 Test Item Value Reference Range Interpretation Comments IRON % SATURATION (test 45 % 20-45 code = %SAT) IRON (test code = FE) 80 UG/DL 49-181 If Iro n is <6 the % saturation is incalculable. IBC (test code = IBC) 176 261-462 L [id number] 11:08:00 Test Item Value Reference Range Interpretation Comments WBC (test code = 5.9 K/UL 3.5-10.9 WBC) RBC (test code = 3.25 M/UL 4.3-5.7 L RBC) HGB (test code = 10.3 G/DL 13.0-17.9 L HGB) HCT (test code = 31.0 % 38-52 L HCT) MCV (test code = 95.4 FL 80-98 MCV) MCH (test code = 31.7 PG 28-32 MCH) MCHC (test code = 33.2 G/DL 32.5-36.5 MCHC) RDW (test code = 13.8 % 11.5-14.5 RDW) PLT (test code = 137 K/UL 150-450 L PLT) MPV (test code = 9.7 FL 7.4-10.4 MPV) MANDIFF (test code = NO MANDIFF) SCAN (test code = NO SCAN) NEUT% (test code = 60.2 % 40-75 NEUT%) LYMPH% (test code = 27.4 % 24-44 LYMPH%) MONO% (test code = 7.3 % 0-13 MONO%) EOS% (test code = 4.1 % 0-4 H EOS%) BASO % (test code = 0.7 % 0-2 BASO%) IG% (test code = 0.3 % 0-1 IG% = Metam yelocytes, IG%) Myelocytes, and Promyelocytes. (Immature neutr ophils not including " bands".) > 3% IG indic ates risk of sepsis NRBC% (test code = 0 /100 WBC NRBC%) ABS NEUT (test code 3.6 K/UL 1.2-7.2 = NEUT) PATHOLOGY [id number] 20:14:00- TISSUE CONSULTATION REPORTBAPTUT SOUTHWEST[facility] HOSPITALDEPARTMENT OF PATHOLOGYP.OZahra [place] [address], [place] [id number] MUKESH HALL M.D.JOSEPH M. WEMPE, M.D. ____Patient: JOSE NINA 1950 67 MRoom:Hosp#: [id number] Ordering Physician: Diego BAIG Rec.: 08/09/2017Date of Proc.: 08/09/2017Lab No.: [id number] PRE-OPERATIVE DIAGNOSIS:- AnemiaFINAL ANATOMIC DIAGNOSIS:PERIPHERAL SMEAR:- MACROCYTIC/HYPERCHROMIC ANEMIABONE MARROW, LEFT ILIAC CREST, ASPIRATE AND BIOPSY:- LIMITED BONE MARROW WITH TRILINEAGE HEMATOPOIESIS;- MARKEDLY INCREASED IRON (see comment)REPORT COMMENTS:- [place] [facility] [place]. There is no immunophenotypic evidence of an abnormalmyeloid maturation or an increased blast population. There is noimmunophenotypic evidence of a B-cell or T-cell lymphoproliferativedisorder.MICROSCOPIC EXAMINATION:- Examination of the patients CBC and [facility] demonstrate a normalrange white blood cell count and range platelet count. The patienthas a macrocytic/hyperchromic anemia with a hemoglobin of 11.9 g/dland hematocrit of 36.1%. The red cells have a mean cell volume of98.4fl and a mean cell hemoglobin of 32.4 pg. The white blood celldifferential is within normal limits. The peripheral smear shows anormal red cell morphology. There are scattered reactive appearinglymphocytes present. Occasional immature myeloid cells are present.- These immature myeloid cells show zkwlicu-td-vfeswdiswlovmdhqunhfvv. Scattered eosinophils and basophils are identified onscan. No blasts or nucleated red cells are seen.- The aspirate smears are completely devoid of spicules. Thebone marrow elements present are markedly diluted by peripheralblood. I am unable to perform a manual differential. The 4 mm corebiopsy shows crush artifact. The marrow elements present showtrilineage hematopoiesis. The marrow has an estimated cellularityof 30-40% based on this small core biopsy. The most notable findingin the core is the presence of markedly increased iron. Hemosiderinladen macrophages are present throughout the marrow elements. I donot appreciate ringed sideroblasts in the Max's stained core biopsypreparation. No atypical lymphoid aggregates or infiltrative marrowprocess is identified.GROSS APPEARANCE:- The specimen is labeled "left iliac crest biopsy." The 10 cmcylindrical fragment of bright red clot appears to have a 5 mm tancore along one extreme end. The clot and probable core aresubmitted entirely in cassette A for brief decalcification.PATHOLOGIST: Abbe Schilling Electronically Signed: 08/13/2017
[2020-03-18] MEDS ORDERED: MUPIROCIN 2% OINT 22GM TUBE TOP ONE (21:25)
[2020-03-18] MEDS ORDERED: NA CHLORIDE 0.9% 250 ML ONE (21:56)
[2020-03-18] MEDS ORDERED: VANCOMYCIN 1 GM/VIAL ONE (21:56)
[2020-03-18] MEDS ORDERED: ACETAMINOPHEN 650MG/RECT SUPP PR ONE (21:56)
[2020-03-18] MEDS ORDERED: PIPER/TAZO/NS 3.375gm 3.375 GM/100 ML BAG ONE (21:56)
[2020-03-18] MEDS ORDERED: NA CHLORIDE 0.9% 1,000 ML ONE (21:57)
[2020-03-18 22:08] LABS: Absolute Lymphocytes (CBC) 0.4 K/uL (0.7-4.9); Basophils % 0.3 % (0-1.3); Hematocrit 29.5 % (39.6-49.0); Lymphocytes % 4.9 % (15.3-44.8); MPV 8.1 fL (7.6-11.3); RBC Red Blood Cell Count 3.34 M/uL (4.33-5.43)
[2020-03-18 22:30] LABS: AST/SGOT 151 U/L (15-37); BUN Blood Urea Nitrogen 61 mg/dL (7-18); Bicarbonate 25 mmol/L (21-32); Glucose Level 94 mg/dL (74-106); Sodium Level 130 mmol/L (136-145)
[2020-03-18 22:31] LABS: ALT/SGPT 168 U/L (12-78); Albumin 2.6 g/dL (3.4-5.0); Alkaline Phosphatase 228 U/L (45-117); Amylase 36 U/L (25-115); Bilirubin Direct 3.8 mg/dL (0-0.2); Bilirubin Total 4.5 mg/dL (0.2-1.0); CKMB Creatine Kinase MB < 1.0 ng/mL (0.3-3.6); Creatine Phosphokinase 99 U/L (39-308); Lipase 31 U/L (73-393); Troponin (Emerg Dept Use Only) < 0.02 ng/mL (0.0-0.045)
[2020-03-18 22:36] LABS: Potassium 6.4 mmol/L (3.5-5.1)
[2020-03-18 22:45] LABS: Protime INR 4.43
[2020-03-18 22:50] LABS: Blood Morphology Comment NOT SEEN (NOT SEEN); Platelet Estimate ADEQ
--- NOTE | 2020-03-19 00:39 | ER ---
Nurse's Notes [facility] Name: Robert Nina Jr Age: 69 yrs Sex: Male : 1950 Arrival Date: 03/18/2020 Time: 21:04 Bed 3 Private MD: Diagnosis: End stage renal disease;Hyperkalemia;Unspecified combined systolic (congestive) and diastolic (congestive) heart failure;Iron deficiency anemia, unspecified;Type 1 diabetes mellitus;Arteriovenous fistula, acquired-right arm bleeding, ulcer;Coagulation defect, unspecified-xarelto therapy;Atrial fibrillation and flutter-rvr Presentation: 03/18 21:05 Chief complaint: EMS states: came from [facility], call made for a complaint of rr5 bleeding on his shunt site. Coronavirus screen: Client denies travel out of the [place] in the last 14 days. fever, Client presents with at least one sign or symptom that may indicate coronavirus-19. Standard/surgical mask placed on the client. Provider contacted for isolation considerations. Ebola Screen: Patient negative for fever greater than or equal to 101.5 degrees Fahrenheit, and additional compatible Ebola Virus Disease symptoms Patient denies exposure to infectious person. Patient denies travel to an Ebola-affected area in the 21 days before illness onset. Initial Sepsis Screen: Does the patient meet any 2 criteria? Temp <36.0*C (96.8*F)) or > 38.3*C (100.9*F). HR > 90 bpm. Does the patient have a suspected source of infection? Yes: Productive cough/pneumonia Skin breakdown/wound Risk Assessment: Do you want to hurt yourself or someone else? Patient reports no desire to harm self or others. Onset of symptoms was March 18, 2020. 21:05 Method Of Arrival: EMS: [facility] rr5 21:05 Acuity: KEVEN 3 rr5 Historical: - Allergies: 21:16 No Known Allergies; rr5 - Home Meds: 21:16 mix trilyte [Active]; Colace oral oral [Active]; Lactulose Oral [Active]; Metoprolol rr5 Tartrate Oral [Active]; Norvasc Oral [Active]; pravastatin oral oral [Active]; Synthroid Oral [Active]; Vitamin D Oral [Active]; - PMHx: 21:16 CVA; Diabetes - IDDM; ESRD; GERD; RIGHT HEMIPLEGIA; rr5 - Immunization history:: Adult Immunizations unknown. - Social history:: Smoking status: unknown. - Family history:: not pertinent. Screenin:05 Abuse screen: Denies threats or abuse. Denies injuries from another. Nutritional rr5 screening: No deficits noted. Tuberculosis screening: No symptoms or risk factors identified. Fall Risk Gait- Impaired (20 pts.). Total Nam Fall Scale indicates High Risk Score (45 or more points). Fall prevention measures have been instituted. Side Rails Up X 2 Frequent Obs/Assessments Occuring As available patient and family educated on Fall Prevention Program and Strategies. Assessment: 21:05 General: Appears obese, Behavior is drowsy. Pain: Denies pain. Neuro: Level of ea Consciousness is obeys commands, Oriented to person, place, situation. Cardiovascular: Patient's skin is warm and dry. Respiratory: Airway is patent Respiratory effort is even, Respiratory pattern is regular, symmetrical, Breath sounds with crackles. Derm: Skin is pink, warm \T\ dry. Derm: Parent/caregiver reports the patient having AV fistula bleeding noted, provider at bedside, dressing area. Pt tolerating well. 22:40 Reassessment: xavier from laboratory called for result of PTT 42.6 PT 50.1 INR 4.43. ED rr5 provider aware. 23:39 Reassessment: Patient appears in no apparent distress at this time. Patient is alert, rr5 oriented x 3, equal unlabored respirations, skin warm/dry/pink. 03/19 01:18 Reassessment: Provider at bedside, pt intubated 7.5 ETT 23 at teeth, vent settings: ea tidal volume 500, rate 14, FiO2 100%. 16 Fr de león inserted draining to BSD, central line inserted to right groin per ED physician. 02:32 Reassessment: Pt resting with eyes closed, respirations even and unlabored chest ea expansions even and symmetrical. No s/s of pain or discomfort noted at this time. 03:49 Reassessment: Patient and/or family updated on plan of care and expected duration. Pain ea level reassessed. Report given to receiving nurse in ICU. Pt left ED vias stretcher per tech and ED nurse. Tolerating well. Vital Signs: 03/18 21:05 BP 131 / 89; Pulse 128; Resp 20; Temp 101.2; Pulse Ox 98% on 3 lpm NC; rr5 21:34 Weight 80 kg; rr5 22:00 BP 142 / 90; Pulse 117; Resp 17; Pulse Ox 98% on 3 lpm NC; rr5 23:00 BP 123 / 84; Pulse 112; Resp 19; Pulse Ox 99% on 3 lpm NC; rr5 23:37 BP 130 / 70; Pulse 113; Resp 19; Temp 98.9; Pulse Ox 99% on 3 lpm NC; rr5 03/19 00:00 BP 136 / 86; Pulse 118; Resp 20; Temp 99; Pulse Ox 100% ; ea 01:30 BP 102 / 53; Pulse 107; Resp 20; Pulse Ox 98% on 3 lpm NC; ea 02:30 BP 101 / 60; Pulse 106; Resp 20; Pulse Ox 98% ; ea 03:30 BP 105 / 65; Pulse 105; Resp 16; Pulse Ox 98% ; ea ED Course: 03/18 21:04 Patient arrived in ED. rr5 21:05 Stanley Jenkins MD is Attending Physician. darcie 21:05 Arm band placed on right wrist. 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 21:13 Triage completed. rr5 21:16 Patient has correct armband on for positive identification. Placed in gown. Bed in low ea position. Call light in reach. Side rails up X2. transplant registered nurse on. Pulse ox on. NIBP on. 21:30 Leon Coe RN is Primary Nurse. rr5 21:32 Chest Single View XRAY In Process Unspecified. EDMS 22:15 Missed attempt(s): 20 gauge in left antecubital area. Bleeding controlled, band aid ea applied, catheter tip intact. 22:18 Missed attempt(s): 22 gauge in left forearm. Bleeding controlled, band aid applied, ea catheter tip intact. 22:19 Missed attempt(s): 24 gauge in left hand. Bleeding controlled, band aid applied, ea catheter tip intact. 22:20 Inserted saline lock: 24 gauge in left hand, using aseptic technique. Blood collected. ea 03/19 00:00 Inserted saline lock: 16 gauge in left EJ, using aseptic technique. Blood collected. ea per Dr jenkins. 00:35 Vikas Tran MD is Hospitalizing Provider. [facility] 02:05 No provider procedures requiring assistance completed. Patient admitted, IV remains in ea place. Administered Medications: 03/18 22:04 Drug: Tylenol Suppository 650 mg Route: IL; rr5 03/19 01:00 Follow up: Response: No adverse reaction; Temperature is decreased ea 03/18 22:55 Drug: NS 0.9% 1000 ml Route: IV; Rate: 100 ml/hr; Site: left hand; rr5 03/19 02:36 Follow up: Response: No adverse reaction; IV Status: Infusion continued upon admission; ea IV Intake: 400ml 03/18 22:58 Dru.375 grams of (Zosyn 3.375 grams, NS 0.9% 100 ml) Route: IVPB; Infused Over: 60 rr5 mins; Site: left hand; 03/19 01:00 Follow up: IV Status: Completed infusion 03/18 23:36 Dru grams of (vancoMYCIN 1 grams, NS 0.9% 250 ml) Route: IVPB; Infused Over: 2 hrs; rr5 Site: left hand; 03/19 02:00 Follow up: Response: No adverse reaction; IV Status: Completed infusion 03/18 23:39 Not Given (Physician Discretion): NS 0.9% (30 ml/kg) 30 ml/kg IV at bolus once; Sepsis rr5 Protocol 03/19 00:40 Drug: D50W 50 ml {Note: left EJ.} Route: IVP; Site: Other; ea 01:00 Follow up: Response: No adverse reaction ea 00:40 Drug: Insulin Regular Human 10 units {Co-Signature: rr5 (Leon Coe RN).} Route: ea IVP; Site: left hand; 03:48 Follow up: Response: No adverse reaction ea 00:42 Drug: Albuterol - atroVENT (3:1) (2.5 mg - 0.5 mg) 3 ml Route: Nebulizer; ea 02:37 Follow up: Response: No adverse reaction ea 00:45 Drug: Calcium Gluconate 1 grams Route: IVPB; Infused Over: 15 mins; Site: left hand; ea 01:00 Follow up: Response: No adverse reaction; IV Status: Completed infusion ea 00:45 Drug: Lopressor 2.5 mg Route: IVP; Site: right hand; ea 01:00 Follow up: Response: No adverse reaction ea 00:50 Drug: Lopressor 2.5 mg Route: IVP; Site: left hand; ea 01:00 Follow up: Response: No adverse reaction ea Intake: 02:36 IV: 400ml; Total: 400ml. ea Outcome: 00:39 Decision to Hospitalize by Provider. darcie 02:05 Admitted to ER Hold. Please see [facility] for further documentation. ea 02:05 Condition: stable 02:05 Instructed on the need for admit. 03:50 Patient left the ED. ea Signatures: Dispatcher [employer] EDStanley Du MD MD cha Antunez, Elena RN RN Leon Newton RN RN rr5 Leon Coe RN rr5 Corrections: (The following items were deleted from the chart) 02:37 00:40 Kayexalate 30 grams PO ea ea 03:50 03:49 Reassessment: Patient and/or family updated on plan of care and expected ea duration. Pain level reassessed. Report given to receiving nurse in ICU. Pt tolerating well. ea
--- NOTE | 2020-03-19 00:40 | EDPHYS ---
Physician Documentation [facility] Name: Robert Nina Jr Age: 69 yrs Sex: Male : 1950 Arrival Date: 03/18/2020 Time: 21:04 Bed 3 Private MD: ED Physician Stanley Jenkins HPI: 03/18 21:27 This 69 yrs old Black Male presents to ER via EMS with complaints of bleeding dialysis darcie shunt. 21:27 The patient or guardian complains of injury, ulceration to right lateral aspect of arm darcie at av fistula site x 1 day. The complaints affect the right tricep. Context: The problem was sustained at an unknown location. Onset: The symptoms/episode began/occurred 1 day(s) ago. Treatment prior to arrival includes: emily wrap. Modifying factors: The symptoms are alleviated by nothing. the symptoms are aggravated by nothing. The patient has shortness of breath at rest. Duration: The symptoms are continuous, and are steadily getting worse. The patient's shortness of breath has no apparent modifying factors. dialysis patient, with bleeding right arm at av fistula site, with fever , cough, weak and tachycardic. Associated signs and symptoms: Pertinent positives: non-productive cough, fever. Severity of symptoms: At their worst the symptoms were mild moderate in the emergency department the symptoms are unchanged. Historical: - Allergies: 21:16 No Known Allergies; rr5 - Home Meds: 21:16 mix trilyte [Active]; Colace oral oral [Active]; Lactulose Oral [Active]; Metoprolol rr5 Tartrate Oral [Active]; Norvasc Oral [Active]; pravastatin oral oral [Active]; Synthroid Oral [Active]; Vitamin D Oral [Active]; - PMHx: 21:16 CVA; Diabetes - IDDM; ESRD; GERD; RIGHT HEMIPLEGIA; rr5 - Immunization history:: Adult Immunizations unknown. - Social history:: Smoking status: unknown. - Family history:: not pertinent. ROS: 21:27 Eyes: Negative for injury, pain, redness, and discharge, ENT: Negative for injury, darcie pain, and discharge, Neck: Negative for injury, pain, and swelling, Abdomen/GI: Negative for abdominal pain, nausea, vomiting, diarrhea, and constipation, Back: Negative for injury and pain, : Negative for injury, bleeding, discharge, and swelling, Skin: Negative for injury, rash, and discoloration, Psych: Negative for depression, anxiety, suicide ideation, homicidal ideation, and hallucinations, Allergy/Immunology: Negative for hives, rash, and allergies, Endocrine: Negative for neck swelling, polydipsia, polyuria, polyphagia, and marked weight changes, Hematologic/Lymphatic: Negative for swollen nodes, abnormal bleeding, and unusual bruising. 21:27 Constitutional: Positive for body aches, chills, fatigue, fever, malaise. 21:27 Cardiovascular: Positive for palpitations. 21:27 Respiratory: Positive for cough, shortness of breath. 21:27 MS/extremity: Positive for hemiparesis, bleeding ulcer at right arm graft 2x2 cm. 21:27 Skin: Positive for hot to touch. Exam: 21:27 Head/Face: Normocephalic, atraumatic. Eyes: Pupils equal round and reactive to light, darcie extra-ocular motions intact. Lids and lashes normal. Conjunctiva and sclera are non-icteric and not injected. Cornea within normal limits. Periorbital areas with no swelling, redness, or edema. ENT: Nares patent. No nasal discharge, no septal abnormalities noted. Tympanic membranes are normal and external auditory canals are clear. Oropharynx with no redness, swelling, or masses, exudates, or evidence of obstruction, uvula midline. Mucous membranes moist. Neck: Trachea midline, no thyromegaly or masses palpated, and no cervical lymphadenopathy. Supple, full range of motion without nuchal rigidity, or vertebral point tenderness. No Meningismus. Chest/axilla: Normal chest wall appearance and motion. Nontender with no deformity. No lesions are appreciated. Abdomen/GI: Soft, non-tender, with normal bowel sounds. No distension or tympany. No guarding or rebound. No evidence of tenderness throughout. Back: No spinal tenderness. No costovertebral tenderness. Full range of motion. Male : Normal genitalia with no discharge or lesions. Skin: Warm, dry with normal turgor. Normal color with no rashes, no lesions, and no evidence of cellulitis. Neuro: Awake and alert, GCS 15, oriented to person, place, time, and situation. Cranial nerves II-XII grossly intact. Motor strength 5/5 in all extremities. Sensory grossly intact. Cerebellar exam normal. Normal gait. Psych: Awake, alert, with orientation to person, place and time. Behavior, mood, and affect are within normal limits. 21:27 Cardiovascular: Rate: tachycardic, Rhythm: regular, Pulses: Pulses are 4+ in bilateral radial, brachial, femoral, popliteal, posterior tibial and and dorsalis pedis arteries.. Heart sounds: normal, JVD: is not appreciated. 21:27 Musculoskeletal/extremity: ROM: right side hemiparesis, Circulation is intact in all extremities. decreased sensation, Compartment Syndrome exam of affected extremity: is normal. the left arm edema in left forearm, warm to touch. 03/19 00:41 ECG was reviewed by the Attending Physician. darcie Vital Signs: 03/18 21:05 BP 131 / 89; Pulse 128; Resp 20; Temp 101.2; Pulse Ox 98% on 3 lpm NC; rr5 21:34 Weight 80 kg; rr5 22:00 BP 142 / 90; Pulse 117; Resp 17; Pulse Ox 98% on 3 lpm NC; rr5 23:00 BP 123 / 84; Pulse 112; Resp 19; Pulse Ox 99% on 3 lpm NC; rr5 23:37 BP 130 / 70; Pulse 113; Resp 19; Temp 98.9; Pulse Ox 99% on 3 lpm NC; rr5 03/19 00:00 BP 136 / 86; Pulse 118; Resp 20; Temp 99; Pulse Ox 100% ; ea 01:30 BP 102 / 53; Pulse 107; Resp 20; Pulse Ox 98% on 3 lpm NC; ea 02:30 BP 101 / 60; Pulse 106; Resp 20; Pulse Ox 98% ; ea 03:30 BP 105 / 65; Pulse 105; Resp 16; Pulse Ox 98% ; ea Procedures: 00:32 Central Line: the site was prepped with Betadine, in sterile fashion, a triple lumen darcie catheter was inserted, in the right in 6 attempts. placement was verified, fail, left ej placed, the site was dressed with using sterile technique, the patient tolerated the procedure, well. Peripheral line: by aseptic technique a peripheral line was placed in the left external jugular vein. MDM: 03/18 21:05 Patient medically screened. darcie 21:34 Differential diagnosis: CHF exacerbation, viral Infection, bacterial infection, darcie pneumonia pneumonia, pulmonary edema, reactive airway disease, Sepsis. Antibiotic administration: zosyn and vanco. Differential Diagnosis sepsis, Upper Respiratory Infection Viral Syndrome Pneumonia. The patient's Wells Deep Vein Thrombosis Score was calculated as follows: Heart Rate >100 BPM (1.5 Pts) Total Score: 0-2 Pts- Low Risk. The patient's pulmonary embolism risk score was calculated as follows: the patients heart rate is greater than 100 beats per minute (1.5 Pts) Total Score: 0-2 points. This patient was found to be at low risk for a pulmonary embolism by using the Well's assessment criteria. Immunization status: Pneumococcal vaccine: Data reviewed: vital signs, nurses notes, EMS record, lab test result(s), EKG, radiologic studies. Data interpreted: telemetry monitor: rate is 128 beats/min, rhythm is normal sinus rhythm, Pulse oximetry: on room air is 98 %. Test interpretation: by ED physician or midlevel provider: ECG, plain radiologic studies. 03/18 21:15 Order name: Amylase, Serum; Complete Time: 00:30 [facility] 03/18 21:15 Order name: Basic Metabolic Panel; Complete Time: 00:30 [facility] 03/18 21:15 Order name: Blood Culture Adult (2) 03/18 21:15 Order name: CBC with Diff; Complete Time: 00:30 [facility] 03/18 21:15 Order name: Ckmb; Complete Time: 00:30 [facility] 03/18 21:15 Order name: CPK; Complete Time: 00:30 03/18 21:15 Order name: Lactate; Complete Time: 00:30 [facility] 03/18 21:15 Order name: LFT's; Complete Time: 00:30 [facility] 03/18 21:15 Order name: Lipase; Complete Time: 00:30 [facility] 03/18 21:15 Order name: Procalcitonin; Complete Time: 00:30 [facility] 03/18 21:15 Order name: Protime (+inr); Complete Time: 00:30 [facility] 03/18 21:15 Order name: Ptt, Activated; Complete Time: 00:30 [facility] 03/18 21:15 Order name: Troponin (emerg Dept Use Only); Complete Time: 00:30 [facility] 03/18 21:15 Order name: Urine Microscopic Only [facility] 03/18 21:15 Order name: Chest Single View XRAY rr03/18 22:18 Order name: Manual Differential; Complete Time: 00:30 EDMS 03/18 22:33 Order name: Glucose, Ancillary Testing; Complete Time: 00:30 EDMT 03/18 23:27 Order name: Type And Screen [facility] 03/19 00:02 Order name: SARS-COV-2 RT PCR; Complete Time: 00:30 EDMS 03/19 01:11 Order name: Basic Metabolic Panel EDMT 03/19 01:11 Order name: CBC with Automated Diff EDMT 03/19 01:11 Order name: Protime (+INR) EDMT 03/19 01:11 Order name: PTT, Activated Partial Thromb EDMT 03/18 21:15 Order name: Accucheck; Complete Time: 22:25 rr5 03/18 21:15 Order name: Cardiac monitoring; Complete Time: 22:25 rr5 03/18 21:15 Order name: EKG - Nurse/Tech; Complete Time: 22:25 rr5 03/18 21:15 Order name: IV Saline Lock - Large Bore; Complete Time: 23:39 rr5 03/18 21:15 Order name: Labs collected and sent; Complete Time: 22:58 rr5 03/18 21:15 Order name: O2 Per Protocol; Complete Time: 22:26 rr5 03/18 21:15 Order name: O2 Sat Monitoring; Complete Time: 22:26 rr5 03/18 21:23 Order name: Wound dressing: by ; Complete Time: 21:33 [facility] 03/19 01:05 Order name: CONS Physician Consult EDMT 03/19 01:11 Order name: Consistent Carb (ADA) [address] EDMS EC/29 00:41 Rate is 118 beats/min. Rhythm is irregularly irregular. QRS [place] is Normal. CT interval darcie is normal. QRS interval is normal. QT interval is normal. No Q waves. T waves are Normal. No ST changes noted. Clinical impression: Atrial Fibrillation and No evidence of ischemia. Interpreted by me. Reviewed by me. Administered Medications: 03/18 22:04 Drug: Tylenol Suppository 650 mg Route: CT; rr5 03/19 01:00 Follow up: Response: No adverse reaction; Temperature is decreased ea 03/18 22:55 Drug: NS 0.9% 1000 ml Route: IV; Rate: 100 ml/hr; Site: left hand; rr5 03/19 02:36 Follow up: Response: No adverse reaction; IV Status: Infusion continued upon admission; ea IV Intake: 400ml 03/18 22:58 Dru.375 grams of (Zosyn 3.375 grams, NS 0.9% 100 ml) Route: IVPB; Infused Over: 60 rr5 mins; Site: left hand; 03/19 01:00 Follow up: IV Status: Completed infusion ea 03/18 23:36 Dru grams of (vancoMYCIN 1 grams, NS 0.9% 250 ml) Route: IVPB; Infused Over: 2 hrs; rr5 Site: left hand; 03/19 02:00 Follow up: Response: No adverse reaction; IV Status: Completed infusion ea 03/18 23:39 Not Given (Physician Discretion): NS 0.9% (30 ml/kg) 30 ml/kg IV at bolus once; Sepsis rr5 Protocol 03/19 00:40 Drug: D50W 50 ml {Note: left EJ.} Route: IVP; Site: Other; ea 01:00 Follow up: Response: No adverse reaction ea 00:40 Drug: Insulin Regular Human 10 units {Co-Signature: rr5 (Leon Coe RN).} Route: ea IVP; Site: left hand; 03:48 Follow up: Response: No adverse reaction ea 00:42 Drug: Albuterol - atroVENT (3:1) (2.5 mg - 0.5 mg) 3 ml Route: Nebulizer; ea 02:37 Follow up: Response: No adverse reaction ea 00:45 Drug: Calcium Gluconate 1 grams Route: IVPB; Infused Over: 15 mins; Site: left hand; ea 01:00 Follow up: Response: No adverse reaction; IV Status: Completed infusion ea 00:45 Drug: Lopressor 2.5 mg Route: IVP; Site: right hand; ea 01:00 Follow up: Response: No adverse reaction ea 00:50 Drug: Lopressor 2.5 mg Route: IVP; Site: left hand; ea 01:00 Follow up: Response: No adverse reaction ea Disposition: 03/19/20 00:39 Hospitalization ordered by Vikas Tran for Inpatient Admission. Preliminary diagnosis are End stage renal disease, Hyperkalemia, Unspecified combined systolic (congestive) and diastolic (congestive) heart failure, Iron deficiency anemia, unspecified, Type 1 diabetes mellitus, Arteriovenous fistula, acquired - right arm bleeding, ulcer, Coagulation defect, unspecified - xarelto therapy, Atrial fibrillation and flutter - rvr. - Bed requested for [facility] ER HOLD. - Status is Inpatient Admission. ea - Condition is Serious. - Problem is new. - Symptoms have improved. Signatures: Dispatcher [employer] [facility] Stanley Jenkins MD MD cha Antunez, Elena, RN RN ea Roque, Raymond, RN RN rr5 Yony Carreon tt3 Leon Coe RN rr5 Corrections: (The following items were deleted from the chart) 03/18 22:47 21:23 CORONAVIRUS+MR.LAB.BRZ ordered. [facility] 03/19 01:03 01:01 CONS Physician Consult ordered. [facility] 36 00:39 Hospitalization Ordered by Vikas Tran MD for Inpatient Admission. Preliminary tt3 diagnosis is End stage renal disease; Hyperkalemia; Unspecified combined systolic (congestive) and diastolic (congestive) heart failure; Iron deficiency anemia, unspecified; Type 1 diabetes mellitus; Arteriovenous fistula, acquired - right arm bleeding, ulcer; Coagulation defect, unspecified - xarelto therapy; Atrial fibrillation and flutter - rvr. Bed requested for Intensive Care Unit. Status is Inpatient Admission. Condition is Serious. Problem is new. Symptoms have improved. [facility] 03:50 01:36 03/19/2020 00:39 Hospitalization Ordered by Vikas Tran MD for Inpatient ea Admission. Preliminary diagnosis is End stage renal disease; Hyperkalemia; Unspecified combined systolic (congestive) and diastolic (congestive) heart failure; Iron deficiency anemia, unspecified; Type 1 diabetes mellitus; Arteriovenous fistula, acquired - right arm bleeding, ulcer; Coagulation defect, unspecified - xarelto therapy; Atrial fibrillation and flutter - rvr. Bed requested for [facility] ER HOLD. Status is Inpatient Admission. Condition is Serious. Problem is new. Symptoms have improved. tt3
[2020-03-19] MEDS ORDERED: INSULIN -REGULAR HUMAN 50 UNIT/0.5 ML ML ONE (00:44)
[2020-03-19] MEDS ORDERED: IPRATROPIUM BROM 0.5MG/2.5ML ONE (00:44)
[2020-03-19] MEDS ORDERED: ALBUTEROL 2.5 MG/3 ML NEB SOL ONE (00:44)
[2020-03-19] MEDS ORDERED: METOPROLOL TARTRATE 5 MG/5 ML INJ IV ONE (00:45)
[2020-03-19] MEDS ORDERED: CALCIUM GLUCONATE 1 GM IVPB 1 GM/50 ML BAG IV ONE (00:46)
[2020-03-19] MEDS ORDERED: D50W 25 GM/50 ML SYRINGE/VIAL IV ONE (00:47)
[2020-03-19] MEDS ORDERED: SOD POLYSTYREN SUL 15 GM/60 ML UCUP ONE (00:47)
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
[2020-03-19] MEDS ORDERED: HYDRALAZINE HCL 20 MG/ML VIAL IV PRN (01:29)
[2020-03-19] MEDS: NA CHLORIDE 0.9% 1,000 ML IV SCH ×3 (02:00→22:00)
[2020-03-19] MEDS ORDERED: NA CHLORIDE 0.9% 1,000 ML ONE ×3 (05:29→13:15)
[2020-03-19 05:45] VITALS: BMI 38.9
[2020-03-19] MEDS: INSULIN -REGULAR HUMAN 50 UNIT/0.5 ML ML SQ SCH ×4 (07:30→21:00)
--- NOTE | 2020-03-19 07:31 | RAD REPORT ---
EXAM DESCRIPTION: RAD - Chest Single View - 03/18/2020 9:32 pm CLINICAL HISTORY: Congestion;Fever COMPARISON: Portable March 15 TECHNIQUE: AP portable chest image was obtained 03/18/2020 9:32 pm . FINDINGS: Lung volumes remain low. Interstitial and alveolar opacities are present but improved. Wandy tral vascular has diminished in prominence. Cardiomegaly remains. Right-sided vascular stenting again noted. No pneumothorax or large pleural effusion. No acute bony abnormality seen. No acute aortic fi ndings suspected. IMPRESSION: CHF/volume overload pattern has improved but not fully resolved from the March 15 imagi ng.
[2020-03-19] MEDS ORDERED: NA CHLORIDE 0.9% 1,000 ML IV PRN (07:56)
[2020-03-19] MEDS ORDERED: MANNITOL 25% 12.5 GM/50 ML VIAL IV PRN (07:56)
[2020-03-19] MEDS ORDERED: ALBUMIN HUMAN 25% 50 ML IV SCH (08:00)
[2020-03-19 08:54] LABS: Absolute Lymphocytes (CBC) 0.3 K/uL (0.7-4.9); Basophils % 0.2 % (0-1.3); Lymphocytes % 3.8 % (15.3-44.8); MPV 8.6 fL (7.6-11.3); RBC Red Blood Cell Count 2.33 M/uL (4.33-5.43)
[2020-03-19] MEDS: VITAMIN D 5,000 UNIT CAP PO SCH (09:00)
[2020-03-19] MEDS ORDERED: EPOETIN ALFA-EPBX 10,000 UNIT/ML VIAL SQ ONE (09:00)
[2020-03-19] MEDS: CALCITROL 0.25 MCG CAP PO SCH (09:00)
[2020-03-19] MEDS: ASCORBIC ACID 500 MG TABLET PO SCH ×2 (09:00→23:50)
[2020-03-19] MEDS: DOCUSATE NA 100 MG CAP PO SCH ×2 (09:00→23:50)
[2020-03-19] MEDS: MULTIVITAMINS,THERAPEUT 1 TAB PO SCH (09:00)
[2020-03-19 09:01] LABS: Hematocrit 20.6 % (39.6-49.0)
[2020-03-19 09:38] LABS: Potassium 6.1 mmol/L (3.5-5.1)
[2020-03-19 09:39] LABS: Hematocrit 20.4 % (39.6-49.0)
[2020-03-19] MEDS ORDERED: NA CHLORIDE 0.9% 250 ML IV SCH (11:00)
[2020-03-19 11:49] LABS: Arterial Blood Carboxyhemoglob 1.7 % (0-1.5); Blood Gas Oxyhemoglobin 96.7 % (94-97); Blood O2 Saturation 99.5 % (92-98.5)
[2020-03-19] MEDS ORDERED: NA CHLORIDE 0.9% 500 ML ONE (13:15)
[2020-03-19] MEDS ORDERED: D5 0.45 NS 500 ML IV ONE (13:17)
[2020-03-19 16:35] LABS: Hematocrit 21.5 % (39.6-49.0)
[2020-03-20] MEDS ORDERED: NA CHLORIDE 0.9% 0 ML ONE (01:31)
[2020-03-20 07:24] LABS: Absolute Lymphocytes (CBC) 0.5 K/uL (0.7-4.9); Basophils % 0.2 % (0-1.3); Lymphocytes % 6.2 % (15.3-44.8); MPV 8.7 fL (7.6-11.3); RBC Red Blood Cell Count 2.45 M/uL (4.33-5.43)
[2020-03-20] MEDS: INSULIN -REGULAR HUMAN 50 UNIT/0.5 ML ML SQ SCH ×4 (07:30→21:00)
[2020-03-20 07:37] LABS: Albumin 2.2 g/dL (3.4-5.0); Protein, Total 5.8 g/dL (6.4-8.2)
[2020-03-20 07:54] LABS: Potassium 6.1 mmol/L (3.5-5.1)
[2020-03-20] MEDS: DOCUSATE NA 100 MG CAP PO SCH ×2 (09:14→21:00)
[2020-03-20] MEDS: ASCORBIC ACID 500 MG TABLET PO SCH ×2 (09:14→21:40)
[2020-03-20] MEDS: MULTIVITAMINS,THERAPEUT 1 TAB PO SCH (09:14)
[2020-03-20] MEDS: CALCITROL 0.25 MCG CAP PO SCH (09:23)
[2020-03-20] MEDS: VITAMIN D 5,000 UNIT CAP PO SCH (09:23)
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
[2020-03-20] MEDS ORDERED: SOD POLYSTYREN SUL 15 GM/60 ML UCUP PO ONE (12:00)
[2020-03-20] MEDS ORDERED: SOD POLYSTYREN SUL 15 GM/60 ML UCUP ONE (12:25)
[2020-03-20] MEDS ORDERED: METOPROLOL TAR 25 MG TAB ONE ×2 (13:48→21:48)
[2020-03-20] MEDS: METOPROLOL TAR 25 MG TAB PO SCH ×2 (13:50→21:40)
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
[2020-03-20] MEDS ORDERED: ONDANSETRON 4 MG/2 ML VIAL ONE (17:31)
[2020-03-20] MEDS ORDERED: ONDANSETRON 4 MG/2 ML VIAL IV ONE (17:35)
[2020-03-20] MEDS ORDERED: LIDOCAINE 1% MPF 30 ML VIAL ONE (17:39)
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
--- NOTE | 2020-03-20 18:15 | P.OP ---
Preoperative diagnosis: End-stage renal disease Postoperative diagnosis: The same Primary procedure: Insertion of left subclavian catheter Secondary procedure: Times insertion of right femoral catheter Anesthesia: Local Estimated blood loss: Less than 20 cc Findings: This was done in the ER Operative Technique: After explained to the patient what the procedure was going to involve, consent forms were signed. At this point the patient was then placed supine on the stretcher in the ER. There the right groin was then prepped with a chlorhexidine solution. He was draped in usual manner. We attempted to cannulate the right femoral vein. New Mr. passes were made. We did encounter the artery but we were using the micro needle system. The needle was withdrawn with no apparent sequelae. Numerous times to try to cannulate the vein but were unsuccessful. At this point we turned attention to the left subclavian vein. With the patient once again its supine on the gurney with a roll between the shoulders, the area of the left chest was prepped with a Betadine solution, he was draped in usual aseptic manner. The left subclavian vein was infiltrated 1% lidocaine. A finer needle was used to cannulate the subclavian vein. We were able to find it on the 1st pass. A guidewire was now passed down through our needle. Using a modified Seldinger technique, and the catheter was inserted into the left subclavian vein. The catheter was then flushed and secured and a sterile dressing applied. At the end of the procedure he was in a stable condition when sent to the recovery room. A chest x-ray is pending. Complications: None Transferred to: Other Condition: Good
--- NOTE | 2020-03-20 18:23 | RAD REPORT ---
EXAM DESCRIPTION: Santosh Single View03/20/2020 6:07 pm CLINICAL HISTORY: Device placement/central venous catheter placement IMPRESSION: It appears that a left subclavian venous line has been placed. The tip of the line overl ies the superior vena cava No pneumothorax
--- NOTE | 2020-03-21 03:52 | PN ---
Date of Progress Note: 03/20/2020 Subjective: The patient remains in the ER holding area. Since yesterday, the bleeding over the fist salo site has improved. He has no acute complaints at this time. Denies any fevers, chills, chest pa in, shortness of breath, nausea, vomiting, or diarrhea. Objective: Vital Signs: Vital signs reviewed. The patient is tachycardic. Heart: Tachycardic, regular. No murmurs, rubs, or gallops. Lungs: Grossly clear. Abdomen: Soft. Extremities: With 1+ edema. Laboratory Data: Reviewed. Impression: 1.End-stage renal disease, on hemodialysis. 2.Anemia, multifactorial, likely from chronic kidney disease as well as an element of iron deficienc y anemia. 3.Hypertension. 4.Diabetes mellitus. 5.Hyperkalemia. Plan: 1.I had given Kayexalate. I have also asked nursing staff to administer metoprolol 25 mg to his ashlie e dose to help with rate control of atrial fibrillation. We will defer anticoagulation to primary te am. 2.The patient is to be seen by the Surgical service to assess the wounds over the fistula site. For the time being, we will use the dialysis catheter which had been p laced by the OR earlier today. /LAUREN Voice ID: [id number] Report ID: [id number]
[2020-03-21 04:58] LABS: Absolute Lymphocytes (CBC) 0.5 K/uL (0.7-4.9); Basophils % 0.2 % (0-1.3); Hematocrit 23.6 % (39.6-49.0); Lymphocytes % 6.6 % (15.3-44.8); MPV 8.4 fL (7.6-11.3); RBC Red Blood Cell Count 2.63 M/uL (4.33-5.43)
[2020-03-21 05:01] LABS: Albumin 2.2 g/dL (3.4-5.0); Phosphorus 3.6 mg/dL (2.5-4.9); Potassium 4.5 mmol/L (3.5-5.1)
[2020-03-21 05:04] LABS: Protime INR 1.16
[2020-03-21] MEDS: INSULIN -REGULAR HUMAN 50 UNIT/0.5 ML ML SQ SCH ×4 (07:30→21:00)
[2020-03-21] MEDS: ASCORBIC ACID 500 MG TABLET PO SCH ×2 (08:52→21:00)
[2020-03-21] MEDS: DOCUSATE NA 100 MG CAP PO SCH ×2 (08:52→21:00)
[2020-03-21] MEDS: CALCITROL 0.25 MCG CAP PO SCH (08:53)
[2020-03-21] MEDS: METOPROLOL TAR 25 MG TAB PO SCH ×3 (09:00→22:24)
[2020-03-21] MEDS ORDERED: METOPROLOL TAR 25 MG TAB ONE ×3 (09:11→22:34)
[2020-03-21] MEDS: VITAMIN D 5,000 UNIT CAP PO SCH (09:14)
[2020-03-21] MEDS: MULTIVITAMINS,THERAPEUT 1 TAB PO SCH (09:14)
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
--- NOTE | 2020-03-21 20:39 | P.PN ---
Date of Service: 03/21/20 Vital Signs Temp Pulse Resp BP Pulse Ox 98.7 F 120 H 18 131/88 95 03/21/20 18:04 03/21/20 18:04 03/21/20 18:04 03/21/20 18:04 03/21/20 18:04 Medications Ascorbic Acid (Vitamin C) 500 mg PO Q12HR [facility] Stop: 04/18/20 09:01 Last Admin: 03/21/20 08:52 Dose: 500 mg Documented by: Calcitriol (Rocaltrol) 0.5 mcg PO DAILY FRANK Stop: 04/18/20 09:01 Last Admin: 03/21/20 08:53 Dose: 0.5 mcg Documented by: Cholecalciferol (Vitamin D 5,000 Iu Cap) 5,000 unit PO DAILY [facility] Stop: 04/18/20 09:01 Last Admin: 03/21/20 09:14 Dose: 5,000 unit Documented by: Docusate Sodium (Colace Cap) 100 mg PO BID [facility] Stop: 04/18/20 09:01 Last Admin: 03/21/20 08:52 Dose: 100 mg Documented by: Heparin Sodium (Porcine) (Heparin 1,000 Units/Ml) 6,000 unit IV EVERY HD PRN PRN Reason: AFTER EACH Stop: 04/18/20 07:57 Hydralazine HCl (Apresoline) 10 mg IV Q6HP PRN PRN Reason: Titrate to SBP (MUST DEFINE) Stop: 04/18/20 01:30 Albumin Human (Albumin 25%) 50 mls @ 100 mls/hr IV EVERY HD [facility] Stop: 04/18/20 08:01 Sodium Chloride (Sodium Chloride) 250 mls @ 0 mls/hr IV .Q0M [facility] Stop: 04/18/20 11:01 Insulin Human Regular (Novolin -R) 0 unit SQ ACHS [facility]; Protocol Stop: 04/18/20 07:31 Last Admin: 03/21/20 16:30 Dose: Not Given Documented by: Mannitol (Mannitol 12.5 Gm/50 Ml Vial) 12.5 gm IV EVERY HD PRN PRN Reason: FOR BP SUPPORT AT HD Stop: 04/18/20 07:57 Metoprolol Tartrate (Lopressor) 25 mg PO TID [facility] Stop: 04/19/20 14:01 Last Admin: 03/21/20 14:48 Dose: 25 mg Documented by: Sodium Chloride (Normal Saline Flush) 10 ml IV BID [facility] Stop: 04/18/20 09:01 Last Admin: 03/21/20 09:00 Dose: Not Given Documented by: Vitamin B Complex/Vit C/Folic Acid (Nephro-Opal) 1 tab PO DAILY FRANK Stop: 04/18/20 09:01 Last Admin: 03/21/20 09:14 Dose: 1 tab Documented by: Microbiology Results 03/18/20 22:20 Blood - Blood Aerobic Blood Culture - Preliminary 03/18/20 22:20 Blood - Blood Blood Culture Gram Stain - Preliminary 03/18/20 22:20 Blood - Blood Anaerobic Blood Culture - Final Assessment/ Plan: Nephrology CPS stable without CP or SOB. No acute events overnight. Vitals, medications, blood work and imaging reviewed in the chart. NAD. MMM. Neck supple. CTA. RRR. Soft Abd. No C/C. Hip edema. No rash. AAO. Normal Speech. Right hemiplegia. A/ ESRD on HD Hyponatremia Hyperkalemia HTN with CKD/ CHF Diastolic CHF, chronic DM II with CKD Moderate malnutrition Anemia in CKD SERINA/ Secondary HyperPTH P/ Continue current POC and Medications. Next HD on Saturday. Give Procrit. No NSAIDs. AM labs. Daily weight. Case discussed with Dr. Pierce.
[2020-03-21] MEDS ORDERED: NA CHLORIDE 0.9% 1,000 ML IV PRN (21:25)
[2020-03-21] MEDS ORDERED: MANNITOL 25% 12.5 GM/50 ML VIAL IV PRN (21:25)
[2020-03-21] MEDS ORDERED: ALBUMIN HUMAN 25% 50 ML IV SCH (22:00)
--- NOTE | 2020-03-22 07:02 | EKG ---
Test Date: 2020-03-18 Test Time: 22:17:48 Hammerer: RR MEASUREMENT RESULTS: Intervals: Rate: 118 MN: QRSD: 102 QT: 312 QTc: 437 Ladd: P: MN: QRS: -5 T: 93 INTERPRETIVE STATEMENTS: Atrial fibrillation with rapid ventricular response Abnormal QRS-T angle, consider primary T wave abnormality Abnormal ECG Compared to ECG 03/15/2020 19:22:44 T-wave abnormality now present Myocardial infarct finding no longer present Electronically Signed On 03-22-20 07:00:19 CDT by Sudhakar Owusu
[2020-03-22] MEDS: INSULIN -REGULAR HUMAN 50 UNIT/0.5 ML ML SQ SCH ×3 (07:30→16:30)
[2020-03-22] MEDS: METOPROLOL TAR 25 MG TAB PO SCH ×3 (09:00→22:15)
[2020-03-22] MEDS ORDERED: EPOETIN ALFA-EPBX 10,000 UNIT/ML VIAL SQ SCH (09:00)
[2020-03-22 09:04] LABS: Hematocrit 22.3 % (39.6-49.0); MPV 8.4 fL (7.6-11.3)
[2020-03-22] MEDS: DOCUSATE NA 100 MG CAP PO SCH ×2 (12:02→22:15)
[2020-03-22] MEDS: MULTIVITAMINS,THERAPEUT 1 TAB PO SCH (12:03)
[2020-03-22] MEDS: CALCITROL 0.25 MCG CAP PO SCH (12:03)
[2020-03-22] MEDS: ASCORBIC ACID 500 MG TABLET PO SCH ×2 (12:04→22:15)
[2020-03-22] MEDS: VITAMIN D 5,000 UNIT CAP PO SCH (12:04)
[2020-03-22] MEDS ORDERED: METOPROLOL TAR 25 MG TAB ONE ×2 (12:32→14:37)
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
[2020-03-22] MEDS ORDERED: VANCOMYCIN/NS 1 gm 1 GM/250 ML BAG IVPB SCH (16:45)
[2020-03-22] MEDS ORDERED: ALTEPLASE 2 MG/VIAL IV SCH ×2 (17:00)
[2020-03-22] MEDS ORDERED: VANCOMYCIN 2 GM in NA CHLORIDE 0.9% 500 ML IVPB ONE (17:00)
[2020-03-22] MEDS ORDERED: WATER FOR INJ,STERILE 10 ML IV SCH ×2 (17:00)
[2020-03-22] MEDS ORDERED: ALBUMIN HUMAN 25% 100 ML IV ONE (17:00)
[2020-03-22] MEDS ORDERED: EPOETIN ALFA-EPBX 10,000 UNIT/ML VIAL SQ ONE (17:00)
[2020-03-22] MEDS ORDERED: PIPER/TAZO/NS 2.25gm 2.25 GM/50 ML BAG IVPB SCH (18:00)
[2020-03-22 19:47] LABS: Protime INR 1.24
[2020-03-22] MEDS ORDERED: SOD POLYSTYREN SUL 15 GM/60 ML UCUP PO ONE (21:32)
--- NOTE | 2020-03-22 21:36 | P.PN ---
Date of Service: 03/22/20 Vital Signs Temp Pulse Resp BP Pulse Ox 102.5 F H 110 H 20 122/75 96 03/22/20 14:11 03/22/20 14:11 03/22/20 14:11 03/22/20 14:11 03/22/20 14:11 Medications Ascorbic Acid (Vitamin C) 500 mg PO Q12HR FRANK Stop: 04/18/20 09:01 Last Admin: 03/22/20 12:04 Dose: 500 mg Documented by: Calcitriol (Rocaltrol) 0.5 mcg PO DAILY FRANK Stop: 04/18/20 09:01 Last Admin: 03/22/20 12:03 Dose: 0.5 mcg Documented by: Cholecalciferol (Vitamin D 5,000 Iu Cap) 5,000 unit PO DAILY FRANK Stop: 04/18/20 09:01 Last Admin: 03/22/20 12:04 Dose: 5,000 unit Documented by: Docusate Sodium (Colace Cap) 100 mg PO BID FRANK Stop: 04/18/20 09:01 Last Admin: 03/22/20 12:02 Dose: 100 mg Documented by: Heparin Sodium (Porcine) (Heparin 1,000 Units/Ml) 6,000 unit IJ EVERY HD PRN PRN Reason: AFTER EACH Stop: 04/20/20 21:26 Hydralazine HCl (Apresoline) 10 mg IV Q6HP PRN PRN Reason: Titrate to SBP (MUST DEFINE) Stop: 04/18/20 01:30 Sodium Chloride (Sodium Chloride) 250 mls @ 0 mls/hr IV .Q0M FRANK Stop: 04/18/20 11:01 Albumin Human (Albumin 25%) 50 mls @ 100 mls/hr IV EVERY HD FRANK Stop: 04/20/20 22:01 Vancomycin HCl (Vancomycin 1 Gm/250 Ml Ns Ivpb) 1 gm in 250 mls @ 166.667 mls/hr IVPB EVERY HD [facility] Stop: 04/21/20 16:46 Piperacillin/Tazobactam/Sod Chloride (Zosyn 2.25 Gm/50 Ml Ivpb) 2.25 gm in 50 mls @ 100 mls/hr IVPB Q8HR FRANK Stop: 04/21/20 18:01 Insulin Human Regular (Novolin -R) 0 unit SQ ACHS FRANK; Protocol Stop: 04/18/20 07:31 Last Admin: 03/22/20 16:30 Dose: Not Given Documented by: Mannitol (Mannitol 12.5 Gm/50 Ml Vial) 12.5 gm IV EVERY HD PRN PRN Reason: Titrate to SBP (MUST DEFINE) Stop: 04/20/20 21:26 Metoprolol Tartrate (Lopressor) 25 mg PO TID FRANK Stop: 04/19/20 14:01 Last Admin: 03/22/20 14:28 Dose: 25 mg Documented by: Sodium Chloride (Normal Saline Flush) 10 ml IV BID FRANK Stop: 04/18/20 09:01 Last Admin: 03/22/20 09:00 Dose: 10 ml Documented by: Sodium Polystyrene Sulfonate (Kayexelate) 15 gm PO 1X ONE Stop: 03/22/20 21:33 Vitamin B Complex/Vit C/Folic Acid (Nephro-Opal) 1 tab PO DAILY FRANK Stop: 04/18/20 09:01 Last Admin: 03/22/20 12:03 Dose: 1 tab Documented by: Microbiology Results 03/18/20 22:20 Blood - Blood Aerobic Blood Culture - Final Staph Aureus 03/18/20 22:20 Blood - Blood Blood Culture Gram Stain - Final 03/18/20 22:20 Blood - Blood Anaerobic Blood Culture - Final Assessment/ Plan: Nephrology CPS stable without CP or SOB. No acute events overnight. Poor historian. Vitals, medications, blood work and imaging reviewed in the chart. NAD. MMM. Neck supple. CTA. RRR. Soft Abd. No C/C. Hip edema. No rash. AAO. Normal Speech. Right hemiplegia. A/ ESRD on HD Hyponatremia Hyperkalemia HTN with CKD/ CHF Diastolic CHF, chronic DM II with CKD Moderate malnutrition Anemia in CKD SERINA/ Secondary HyperPTH P/ Continue current POC and Medications. Consider transfer for possible infected AVF to be evaluated by vascular surgery. ID to see the patient. Procrit MWF. No NSAIDs. AM labs. Daily weight. Case discussed with Dr. Pierce & Dr. Humphries.
[2020-03-22] MEDS ORDERED: D50W 25 GM/50 ML SYRINGE/VIAL IV PRN (21:40)
[2020-03-23 00:17] VITALS: O2SAT 97
--- NOTE | 2020-03-23 00:49 | P.DS ---
Admission Date: 03/19/20 Discharge Date: 03/23/20 Reason for Admission: ESRD/dialysis/bleeding from AV fistula Consultations: Nephrology- Dr. Berman Infectious disease- Dr. Kuhn Procedures: Chest x-ray FINDINGS: Lung volumes remain low. Interstitial and alveolar opacities are present but improved. Central vascular has diminished in prominence. Cardiomegaly remains. Right-sided vascular stenting again noted. No pneumothorax or large pleural effusion. No acute bony abnormality seen. No acute aortic findings suspected. IMPRESSION: CHF/volume overload pattern has improved but not fully resolved from the March 15 imaging. Ultrasound right upper extremity Completed Medical problem list Staph aureus bacteremia likely secondary to right upper extremity AV fistula infection Atrial fibrillation on chronic anticoagulation therapy-currently being held End-stage renal disease on chronic hemodialysis Diabetes mellitus type 2 Hypertension Brief History of Present Illness: Patient was admitted to the emergency department for bleeding from right upper extremity AV fistula site and fever. Hospital Course: Patient was admitted to the hospital for bleeding from right upper extremity AV fistula as well as mild ulceration. Patient was noted to have fever on day of admission. Blood cultures were obtained anticoagulats were held due to bleeding. The patient ended up needing to be transfused for acute blood-loss anemia and anemia of chronic disease. Patient continued with dialysis during this hospitalization through left subclavian dialysis catheter that was placed by general surgery. On 03/22/2020 patient was noted to have blood cultures positive for Staph aureus in both anaerobic bottles and was also febrile, patient was started on vancomycin and Zosyn at this time. Patient was evaluated by infectious disease who suggested this could be related to his right upper extremity AV fistula as there was some surrounding redness/induration/streaking. Infectious Disease recommends transfer to higher level of care for evaluation of possible AV fistula infection. Case was discussed at length with attending physician, Infectious Disease in-house as well as hospitalist and vascular surgeon at receiving facility. Patient was accepted at [facility] for further evaluation and management of this condition. <Brent Faria - Last Filed: 03/23/20 00:42> Admission Date: 03/19/20 Discharge Date: 03/23/20 <Leon Pierce - Last Filed: 03/23/20 20:29> Disposition: TRANSFER TO [facility] Discharge Condition: FAIR Vital Signs/Physical Exam: Temp Pulse Resp BP Pulse Ox 98.5 F 114 H 18 154/87 H 96 03/22/20 20:00 03/22/20 22:15 03/22/20 20:00 03/22/20 22:15 03/22/20 14:11 General: Alert, In no apparent distress, Oriented x3 HEENT: Atraumatic, Normocephalic, PERRLA Neck: Supple, 2+ carotid pulse no bruit Respiratory: Clear to auscultation bilaterally, Normal air movement Cardiovascular: Normal S1 S2, Irregular heart rate/rhythm Capillary refill: <2 Seconds Gastrointestinal: Normal bowel sounds, Soft and benign Musculoskeletal: No contractures, No tenderness Integumentary: Tenderness/swelling (Right upper extremity), Erythema Neurological: Abnormal strength (Weakness of right upper and lower extremities due to previous CVA) Urinary: Dialysis catheter Laboratory Data at Discharge: WBC 9.9 K/uL (4.3-10.9) D 03/22/20 08:20 Hgb 7.3 g/dL (13.6-17.9) L* 03/22/20 08:20 Hct 22.3 % (39.6-49.0) L 03/22/20 08:20 Plt Count 105 K/uL (152-406) L 03/22/20 08:20 PT 14.6 SECONDS (9.5-12.5) H 03/22/20 19:10 INR 1.24 03/22/20 19:10 APTT 37.4 SECONDS (24.3-36.9) H 03/19/20 08:20 Sodium 135 mmol/L (136-145) L 03/22/20 08:20 Potassium 5.0 mmol/L (3.5-5.1) 03/22/20 08:20 BUN 62 mg/dL (7-18) H 03/22/20 08:20 Creatinine 6.43 mg/dL (0.55-1.3) H* D 03/22/20 08:20 Glucose 79 mg/dL (74-106) 03/22/20 08:20 Phosphorus 3.6 mg/dL (2.5-4.9) 03/21/20 04:26 Total Bilirubin 1.0 mg/dL (0.2-1.0) 03/20/20 07:07 AST 37 U/L (15-37) D 03/20/20 07:07 ALT 75 U/L (12-78) 03/20/20 07:07 Alkaline Phosphatase 142 U/L (45-117) H 03/20/20 07:07 Amylase 36 U/L (25-115) 03/18/20 21:56 Lipase 31 U/L (73-393) L 03/18/20 21:56 <Brent Faria - Last Filed: 03/23/20 00:42> Vital Signs/Physical Exam: Temp Pulse Resp BP Pulse Ox 97.8 F 111 H 16 160/70 H 96 03/23/20 00:00 03/23/20 00:00 03/23/20 00:00 03/23/20 00:00 03/23/20 00:00 Laboratory Data at Discharge: WBC Cancelled 03/23/20 05:00 Hgb Cancelled 03/23/20 05:00 Hct Cancelled 03/23/20 05:00 Plt Count Cancelled 03/23/20 05:00 PT 14.6 SECONDS (9.5-12.5) H 03/22/20 19:10 INR 1.24 03/22/20 19:10 APTT 37.4 SECONDS (24.3-36.9) H 03/19/20 08:20 Sodium Cancelled 03/23/20 05:00 Potassium Cancelled 03/23/20 05:00 BUN Cancelled 03/23/20 05:00 Creatinine Cancelled 03/23/20 05:00 Glucose Cancelled 03/23/20 05:00 Phosphorus 3.6 mg/dL (2.5-4.9) 03/21/20 04:26 Total Bilirubin 1.0 mg/dL (0.2-1.0) 03/20/20 07:07 AST 37 U/L (15-37) D 03/20/20 07:07 ALT 75 U/L (12-78) 03/20/20 07:07 Alkaline Phosphatase 142 U/L (45-117) H 03/20/20 07:07 Amylase 36 U/L (25-115) 03/18/20 21:56 Lipase 31 U/L (73-393) L 03/18/20 21:56 <Leon Pierce - Last Filed: 03/23/20 20:29> Patient Discharge Instructions: 1. Please continue with care at [facility] in [place]. 2. Patient was admitted to the hospital for bleeding from right upper extremity AV fistula as well as mild ulceration. Patient was noted to have fever on day of admission. Blood cultures were obtained anticoagulats were held due to bleeding. The patient ended up needing to be transfused for acute blood-loss anemia and anemia of chronic disease. Patient continued with dialysis during this hospitalization through left subclavian dialysis catheter that was placed by general surgery. On 03/22/2020 patient was noted to have blood cultures positive for Staph aureus in both anaerobic bottles and was also febrile, patient was started on vancomycin and Zosyn at this time. Patient was evaluated by infectious disease who suggested this could be related to his right upper extremity AV fistula as there was some surrounding redness/induration/streaking. Infectious Disease recommends transfer to higher level of care for evaluation of possible AV fistula infection. Case was discussed at length with attending physician, Infectious Disease in-house as well as hospitalist and vascular surgeon at receiving facility. Patient was accepted at [facility] for further evaluation and management of this condition. Diet: Renal Activity: Ad francisco Time spent managing pt's care (in minutes): 55 <Brent Faria - Last Filed: 03/23/20 00:42> Physician Review: Patient Assessed, Agree with Above Assessment and Plan <Leon Pierce - Last Filed: 03/23/20 20:29> Home Medications: Amlodipine [Norvasc*] 5 mg PO BEDTIME 03/15/20 Aspirin 325 mg PO DAILY 03/15/20 Calcium Acetate 1 tab PO BID 03/15/20 Calcium Acetate 667 mg PO TID 03/15/20 Cholecalciferol (Vitamin D3) [Vitamin D3] 5,000 unit PO DAILY 03/15/20 Docusate [Colace Cap*] 1 cap PO BID 03/15/20 Gabapentin [Neurontin*] 1 cap PO TID 03/15/20 Lactulose 45 ml PO DAILY 03/15/20 Levothyroxine Sodium [Synthroid] 150 mcg PO DAILY 03/15/20 Levothyroxine Sodium [Synthroid] 150 mcg PO SEECOM 03/15/20 Metoprolol Tartrate 25 mg PO TID 03/15/20 Pantoprazole [Protonix Tab*] 1 tab PO BID 03/15/20 Pravastatin Sodium 10 mg PO BEDTIME 03/15/20 Rivaroxaban [Xarelto*] 15 mg PO DAILY 03/15/20 Doxazosin Mesylate [Cardura] 2 mg PO BID #60 tablet 03/17/20 Acetaminophen [Tylenol Extra Strength] 1,000 mg PO Q8HP PRN 03/19/20 Ondansetron HCl [Zofran] 8 mg PO Q8HP PRN 03/19/20
[2020-03-23 03:31] VITALS: BP 160/70; TEMP 97.8
--- NOTE | 2020-03-23 12:07 | RAD REPORT ---
EXAM DESCRIPTION: US - Extremity Venous Uni Ltd - 03/22/2020 9:37 pm CLINICAL HISTORY: 70 years Male, concern for infected AV fistula / abscess / DVT Extremity Venous Uni Ltd COMPARISON: None. TECHNIQUE: Grayscale, color Doppler, and spectral Doppler imaging of the right upper extremity veins and right upper extremity dialysis fistula. FINDINGS: Normal flow and/or compressibility identified in the right internal jugular, subclavian, a nd brachial veins. Noncompressibility and echogenic thrombus identified in the basilic and cephalic veins. Normal compressibility of the radial vein. Blood flow is identified throughout the fistula. No well-circumscribed fluid collection. Edema within the subcutaneous soft tissues of the right upper extremity. IMPRESSION: 1. Blood flow identified throughout the fistula. If there is concern for stenosis fistul ogram would provide more complete characterization. 2. No DVT identified in the right upper chest. 3. SVT identified throughout the basilic and cephalic veins. 4. Edema within the subcutaneous soft tissues of the right upper extremity. No well-circumscribed flu id collection. Electronically signed by: Otis Giraldo 03/22/2020 10:15 PM CDT Due to temporary technical issues with the PACS/Fluency reporting system, reports are being signed by the in house radiologist without review as a courtesy to ensure prompt reporting. The interpreting r adiologist is fully responsible for the content of the report.
[2020-03-23] MEDS ORDERED: EPOETIN ALFA-EPBX 4,000 UNIT/ML VIAL SQ SCH (17:00)
== END 2020-03-23 00:15 | disposition short-term general hospital (02) | DRG 314 ==
LOC: ER 20:57 → ERHOLD 03-19 02:17 → UNDOADMIN 03-19 02:17 → ERHOLD 03-19 04:14 → 2ND 03-22 19:54
PROVIDERS: ADMIT Emergency Medicine; ATTEND Hospitalist
PROC: 0JH63XZ Insertion of Tunneled Vascular Access Device into Chest Subcutaneous Tissue and Fascia, Percutaneous Approach (ICD-10-PCS; principal; 2020-03-20)
PROC: 02HV33Z Insertion of Infusion Device into Superior Vena Cava, Percutaneous Approach (ICD-10-PCS; 2020-03-20)
PROC: 30233N1 Transfusion of Nonautologous Red Blood Cells into Peripheral Vein, Percutaneous Approach (ICD-10-PCS; 2020-03-21)
DX: T82.838A Hemorrhage due to vascular prosthetic devices, implants and grafts, initial encounter (principal); N18.6 End stage renal disease; I48.20 Chronic atrial fibrillation, unspecified; I69.351 Hemiplegia and hemiparesis following cerebral infarction affecting right dominant side; D62 Acute posthemorrhagic anemia; T82.41XA Breakdown (mechanical) of vascular dialysis catheter, initial encounter; E87.1 Hypo-osmolality and hyponatremia; I13.2 Hypertensive heart and chronic kidney disease with heart failure and with stage 5 chronic kidney disease, or end stage renal disease; I50.32 Chronic diastolic (congestive) heart failure; E44.0 Moderate protein-calorie malnutrition; N25.81 Secondary hyperparathyroidism of renal origin; R78.81 Bacteremia; E66.01 Morbid (severe) obesity due to excess calories; E11.22 Type 2 diabetes mellitus with diabetic chronic kidney disease; G89.29 Other chronic pain; M54.9 Dorsalgia, unspecified; S40.921A Unspecified superficial injury of right upper arm, initial encounter; E87.5 Hyperkalemia; D63.1 Anemia in chronic kidney disease; N25.0 Renal osteodystrophy; R00.0 Tachycardia, unspecified; B95.61 Methicillin susceptible Staphylococcus aureus infection as the cause of diseases classified elsewhere; Z99.2 Dependence on renal dialysis; Z79.82 Long term (current) use of aspirin; Z88.8 Allergy status to other drugs, medicaments and biological substances; Z79.890 Hormone replacement therapy; Z79.899 Other long term (current) drug therapy; Z79.01 Long term (current) use of anticoagulants; Z68.39 Body mass index [BMI] 39.0-39.9, adult; Z91.15 Patient's noncompliance with renal dialysis; Z20.828 Contact with and (suspected) exposure to other viral communicable diseases
CPT/HCPCS: 36415; 71045; 80048; 80053; 80069; 80076; 82150; 82550; 82553; 82805; 82947; 83605; 83690; 83735; 83880; 84132; 84145; 84484; 85014; 85018; 85025; 85027; 85610; 85730; 86317; 86704; 86705; 86850; 86900; 86901; 87040; 87077; 87186; 87205; 87340; 90935; 93005; 93971; 96361; 96374; 96375; 99285; G0378; J0360; J0610; J1644; J2150; J2405; J2543; J2997; J3370; J7030; J7040; J7050; J7799; P9016; P9047; Q5105; Q5106; U0002; U0003